=== PATIENT | female | born 1935 | race Caucasian/White ===

== ENCOUNTER → 2018-04-23 14:41 | Outpatient (CLI) | payer MEDICARE, OTHER, SELFPAY ==
--- NOTE | 2018-04-23 14:47 | CI_ITS ---
Cerebrovascular Exam Indications: 785.9 Bruit. 435.9 Unspecified transient cerebral ischemia. 433.10 Occlusion/stenosis of carotid artery without cerebral infarction. IMPRESSIONS 1. The bilateral vertebral arteries are patent with normal antegrade flow. 2. Study suggests 20-49% stenosis involving the right internal carotid artery. 3. Study suggests 70-99%(UPPER END OF SCALE)stenosis involving the left internal carotid artery. Labs, prior tests, procedures, and surgery: Right endarterectomy. Labs, prior tests, procedures, and surgery: Right endarterectomy. Carotid duplex study. Complete study and Doppler flow study including spectral analysis, color and kerr scale imaging. Height: Height: 167.6cm. Height: 66in. Weight: Weight: 75.8kg. Weight: 166.7lb. Body mass index: BMI: 27kg/m^2. Body surface area: BSA: 1.89m^2. Location: Vascular laboratory. Patient status: Outpatient. CRITICAL FINDINGS - Reported to: DORYS SCHROEDER - Read back and verified. - 04/23/18 - 1535 - YES Tables: Arterial flow: + +--------+--------+ Location V sys V ed + +--------+--------+ Right CCA - proximal 77cm/s 14.9cm/s + +--------+--------+ Right CCA - distal 91.9cm/s 17.3cm/s + +--------+--------+ Right ECA 134cm/s -------- + +--------+--------+ Right ICA - proximal -66cm/s 16.5cm/s + +--------+--------+ Right ICA - mid 80.9cm/s 16.5cm/s + +--------+--------+ Right ICA - distal 125cm/s 26.7cm/s + +--------+--------+ Right vertebral 55cm/s -------- + +--------+--------+ Left CCA - proximal 94.3cm/s 14.1cm/s + +--------+--------+ Left CCA - distal 78.6cm/s 11.8cm/s + +--------+--------+ Left ECA 138cm/s -------- + +--------+--------+ Left ICA - proximal 198cm/s 47.7cm/s + +--------+--------+ Left ICA - mid 130cm/s 32.3cm/s + +--------+--------+ Left ICA - distal 146cm/s 33.7cm/s + +--------+--------+ Left vertebral 85.6cm/s -------- + +--------+--------+ Velocity ratios: + + + + + + Right, V sys Right, V ed Left, V sys Left, V ed + + + + + + Max ICA/dist CCA 1.36 1.54 2.52 4.04 + + + + + + (Report amended ) Electronically signed by: Jenaro Hyatt [id number]
== END ==
PROVIDERS: Visit Provider Nurse Practitioner Family
DX: I65.23 Occlusion and stenosis of bilateral carotid arteries (principal)
CPT/HCPCS: 93880

== ENCOUNTER 2018-10-15 12:34 | Observation (INO) ==
[2018-10-15 15:13] LABS: Basophils % 0.5 % (0.1-2.0); Eosinophils # 0.3 K/mm3 (0.0-0.4); Eosinophils % 3.4 % (0.1-12.0); Hematocrit 42.7 % (37.0-47.0); Hemoglobin 14.5 g/dL (12.2-16.2); Lymphocytes # 1.8 K/mm3 (0.7-4.5); Lymphocytes % 22.3 % (10-50); Mean Corpuscular HGB Conc 34.1 g/dL (31.8-35.4); Mean Corpuscular Hemoglobin 28.9 pg (27.0-31.2); Mean Corpuscular Volume 84.9 fl (81-99); Mean Platelet Volume 7.2 fl (7.4-10.4); Monocytes # 0.5 K/mm3 (0.1-1.0); Monocytes % 6.1 % (1.7-9.3); Neutrophils # 5.5 K/mm3 (1.8-7.8); Neutrophils % 67.6 % (37.0-80.0); Platelet Count 410 K/mm3 (142-424); Red Blood Count 5.03 M/mm3 (4.20-5.40); Red Cell Distribution Width 12.2 % (11.5-17.5); White Blood Count 8.2 K/mm3 (4.8-10.8)
[2018-10-15 15:32] LABS: Alanine Aminotransferase 19 U/L (12-78); Albumin Level 3.6 gm/dL (3.4-5.0); Albumin/Globulin Ratio 0.7 (1.1-1.8); Alkaline Phosphatase 71 U/L (46-116); Anion Gap 10.3 mEq/L (5-15); Bilirubin,Total 0.4 mg/dL (0.2-1.0); Blood Urea Nitrogen 24 mg/dL (7-18); Calcium 9.6 mg/dL (8.5-10.1); Carbon Dioxide 33 mmol/L (21.0-32.0); Chloride 105 mmol/L (98-107); Globulin 4.9 gm/dl (1.3-3.2); Glucose 108 mg/dL (74-106); Sodium 143 mmol/L (136-145); Total Protein,Serum 8.5 gm/dL (6.4-8.2)
[2018-10-15 15:35] LABS: Aspartate Amino Transferase 20 U/L (15-37); Potassium 5.3 mmoL/L (3.5-5.1)
--- NOTE | 2018-10-15 20:38 | History & Physical Report ---
*Admission Date: 10/15/18 *Chief complaint: syncope *History of present illness: this wf presented with progressive over the last few weeks syncopal episodes and feeling unstable - pt reports dec hr and no chest pain pt admitted for eval and treatment [facility] History I have reviewed the patient's past medical history: Yes Medical History: Reports:: Anxiety, Atrial Fibrillation, Coronary Artery Disease, Diabetes Mellitus Type 2, Hyperlipidemia, Hypertension Denies:: Cancer, Diabetes Mellitus Type 1, MRSA *Have you ever received a pneumonia vaccine?: Yes *Have you received a flu vaccine this season?: Yes Other Surgeries: Yes: Cardiac Catheterization (08/31/2017 2 stents [facility]), Cholecystectomy, Hernia Repair Amputation: No Fractures: No - *Social History Educational Level: Attended High School Smoking Status: Former smoker Tobacco Type: cigarettes # Packs/Day (cigarettes): 1 Alcohol Intake: current Alcohol Intake Frequency:: holidays/special occasions only Substance Use Type: denies use *Occupational Status:: retired, disabled Housing: house Household Members: spouse *Travel in the last 8 weeks: Inside the [place] - Psychiatric History Expresses thoughts of harming self/others: None Suicide Plan Description: No Plan Pschychiatric History:: Reports:: Anxiety Family Hx:: Diabetes, Coronary Artery Disease Review of Systems - Review of Systems Review of systems:: pertinent systems reviewed and negative unless documented below - Constitutional Reports weakness, Denies headache(s) - Eyes Denies change in vision - ENT Denies sore throat - *Cardiovascular Reports lightheadedness, Reports fainting, Denies chest pain at rest - *Respiratory Denies cough - *Gastrointestinal Denies abdominal pain - *Genitourinary Denies blood in urine - *Musculoskeletal Denies joint pain - Integumentary/Breasts Denies rash - *Neurologic Denies abnormal speech, Denies confusion, Denies seizure-like activity, Denies headache(s) - Psychiatric Denies anxiety Meds Home Medications Medication Instructions Recorded Confirmed Type aspirin 81 mg tablet,delayed 81 mg PO .QDAY tab 05/28/17 07/30/18 History release ferrous sulfate 325 mg (65 mg 325 mg PO DAILY tab 08/30/17 07/30/18 History iron) tablet acetaminophen 300 mg-codeine 30 mg 1 tab PO Q4H PRN tab 07/30/18 07/30/18 History tablet alprazolam 0.25 mg tablet 0.25 mg PO BID PRN 07/30/18 07/30/18 History carbidopa 25 mg-levodopa 100 mg 1 tab PO DAILY tab 07/30/18 07/30/18 History tablet celecoxib 100 mg capsule 100 mg PO BID 07/30/18 07/30/18 History duloxetine 20 mg capsule,delayed 20 mg PO DAILY cap 07/30/18 07/30/18 History release furosemide 20 mg tablet 20 mg PO DAILY 07/30/18 07/30/18 History omeprazole 40 mg capsule,delayed 40 mg PO DAILY 07/30/18 07/30/18 History release Gabapentin [Neurontin 800mg Tab] 800 mg PO HS 10/15/18 History Losartan Potassium 50 mg PO DAILY 10/15/18 History Ropinirole HCl [Requip] 4 mg PO TID 10/15/18 History clopidogrel 75 mg tablet 75 mg PO DAILY 10/15/18 10/15/18 History sitagliptin 100 mg tablet 100 mg PO DAILY 10/15/18 10/15/18 History Allergies Allergy/AdvReac Type Severity Reaction Status Date / Time No Known Allergies Allergy Verified 10/15/18 14:22 Exam Vital signs and Labs for Last 24 Hours: Temp Pulse Resp BP Pulse Ox 98.5 F 54 L 16 157/46 H 96 10/15/18 16:00 10/15/18 16:00 10/15/18 16:00 10/15/18 16:00 10/15/18 16:00 Laboratory Results - last 24 hr 10/15/18 15:06: WBC 8.2, RBC 5.03, Hgb 14.5, Hct 42.7, MCV 84.9, MCH 28.9, MCHC 34.1, RDW 12.2, Plt Count 410, MPV 7.2 L, Neut % (Auto) 67.6, Lymph % (Auto) 22.3, [place] % (Auto) 6.1, Eos % (Auto) 3.4, Baso % (Auto) 0.5, Neut # (Auto) 5.5, Lymph # (Auto) 1.8, [place] # (Auto) 0.5, Eos # (Auto) 0.3, Baso # (Auto) 0.0 10/15/18 15:06: Sodium 143, Potassium 5.3 H, Chloride 105, Carbon Dioxide 33 H, Anion Gap 10.3, BUN 24 H, Creatinine 1.30 H, Estimated Creat Clear 39, Estimated GFR 39 L, Est GFR ( Amer) 48 L, Glucose 108 H, Calcium 9.6, Total Bilirubin 0.4, AST 20, ALT 19, Alkaline Phosphatase 71, Troponin I < 0.02, Total Protein 8.5 H, Albumin 3.6, Globulin 4.9 H, Albumin/Globulin Ratio 0.7 L 10/15/18 19:05: Troponin I < 0.02 I & O for Last 24 hours: Intake & Output 10/13/18 10/14/18 10/15/18 10/16/18 11:59 11:59 11:59 11:59 Intake Total 120 / 120 Balance 120 / 120 Weight 159 lb 8 oz - Constitutional no acute distress - *Routine HEENT Exam Head: Present: normocephalic Eye: Present: EOMI, PERRL ENT: Present: mucous membranes dry - *Routine Neck Exam Absent: JVD, carotid bruit - *Routine Respiratory Exam Present: CTA bilaterally - *Routine Cardiovascular Exam Present: RRR, murmur, S4 - *Routine Abdominal Exam Present: soft - *Routine Extremities Exam Absent: calf tenderness - *Routine Skin Exam Present: intact - *Routine Neurological Exam Present: alert, oriented X3, CN II-XII intact. Absent: sensory deficit, motor deficit, nystagmus - Routine Psychiatric Exam Present: normal affect Assessment and Plan (1) Renal insufficiency Current visit: Yes Status: Acute Category: Medical Code(s): N28.9 - Disorder of kidney and ureter, unspecified (2) Pre-syncope Current visit: No Status: Acute Category: Medical Code(s): R55 - Syncope and collapse (3) Symptomatic bradycardia Current visit: No Status: Acute Category: Medical Code(s): R00.1 - Bradycardia, unspecified (4) Hyperkalemia Current visit: Yes Status: Acute Category: Medical Code(s): E87.5 - H yperkalemia
--- NOTE | 2018-10-16 07:20 | Pharmacy Consult Notes ---
[facility] Pharmacy VTE Monitoring - Patient Demographics Admission date: 10/15/18 Report Date: 10/16/18 Time: 07:20 Allergies/Adverse Reactions: Patient Allergies No Known Allergies Allergy (Verified 10/15/18 14:22) Height: 1.68 m Weight: 69.626 kg - VTE Risk Labs: VTE Related Lab Results Hgb 14.5 g/dL (12.2-16.2) 10/15/18 15:06 Hct 42.7 % (37.0-47.0) 10/15/18 15:06 Plt Count 410 K/mm3 (142-424) 10/15/18 15:06 BUN 24 mg/dL (7-18) H 10/15/18 15:06 Creatinine 1.30 mg/dL (0.55-1.02) H 10/15/18 15:06 Estimated Creat Clear 39 mL/min (50-200) 10/15/18 15:06 Was VTE Risk Assessment Performed: Yes VTE Score: 2 VTE Risk Level: Very Low Risk - Prophylaxis VTE Prophylaxis Ordered?: Yes Types of VTE Prophylaxis: TEDS Knee High Location of Applied Device: Bilateral Lower Extremeties - VTE Diagnosis Confirmed Treatment or plan recommended: Continue Current Treatment
[2018-10-16 07:37] LABS: Basophils % 0.5 % (0.1-2.0); Eosinophils # 0.2 K/mm3 (0.0-0.4); Eosinophils % 2.3 % (0.1-12.0); Hematocrit 41.1 % (37.0-47.0); Lymphocytes # 1.3 K/mm3 (0.7-4.5); Lymphocytes % 17.1 % (10-50); Mean Corpuscular HGB Conc 31.3 g/dL (31.8-35.4); Mean Corpuscular Hemoglobin 28.1 pg (27.0-31.2); Mean Platelet Volume 7.7 fl (7.4-10.4); Monocytes # 0.4 K/mm3 (0.1-1.0); Monocytes % 4.6 % (1.7-9.3); Neutrophils # 5.9 K/mm3 (1.8-7.8); Neutrophils % 75.6 % (37.0-80.0); Platelet Count 414 K/mm3 (142-424); Red Blood Count 4.57 M/mm3 (4.20-5.40); Red Cell Distribution Width 12.7 % (11.5-17.5); White Blood Count 7.8 K/mm3 (4.8-10.8)
[2018-10-16 07:43] LABS: Albumin Level 3.1 gm/dL (3.4-5.0); Bilirubin,Direct 0.1 mg/dL (0.0-0.2); Bilirubin,Indirect 0.4 mg/dL (0.0-0.9); Bilirubin,Total 0.5 mg/dL (0.2-1.0); Total Protein,Serum 7.2 gm/dL (6.4-8.2)
[2018-10-16 07:55] LABS: Hemoglobin 12.9 g/dL (12.2-16.2)
[2018-10-16 07:56] LABS: Anion Gap 10.3 mEq/L (5-15); Chol/HDL Ratio 7.7 (1-3.5); Free T4 (Free Thyroxine) 1.09 ng/dl (0.76-1.46); Potassium 4.3 mmoL/L (3.5-5.1); Thyroid Stimulating Hormone 1.94 uIU/ml (0.358-3.740)
--- NOTE | 2018-10-16 10:40 | Progress Note ---
Subjective Date: 10/16/18 Time: 10:30 Principal diagnosis: symptomatic bradycardia Interval history: This is an 82-year-old white female who was seen in the outpatient clinic yesterday. The patient was complaining of dizziness and near syncopal episodes. She states that she was very unsteady on her feet and her significant other was having to guide her majority of the time when she is walking. She states that she gets significantly dizzy and then falls over but does not pass out but she feels as if she is going to pass out. She states that her most recent episode was yesterday morning prior to her clinic appointment. She also reports having significant pain in her hips and legs. She states that this is severe and she does use pain medication and gabapentin for this as needed. She denies any chest pain or pressure. She denies any shortness of breath or edema. She denies any fever, chills, nausea, vomiting, diarrhea, PND or orthopnea. She states that she is still been having some intermittent dizziness but today her dizziness is not as bad as it was yesterday. The patient was found to have bradycardia, first-degree AV block and a left bundle branch block on her EKG yesterday in the cardiac clinic. She was referred for admission to the hospital to undergo permanent pacemaker placement secondary to her symptomatic bradycardia as well as a first-degree AV block and left bundle branch block. She also had an echocardiogram completed to see if she was a candidate for a biventricular pacemaker or a plane pacemaker. Her ejection fraction on her echocardiogram is 40%. The patient would benefit from a biventricular pacemaker because of her reduced ejection fraction and we do anticipate that the patient is going to A pace and V pace. Exam Vital signs and Labs for Last 24 Hours: Temp Pulse Resp BP Pulse Ox 97.5 F L 64 19 166/64 H 97 10/16/18 08:00 10/16/18 08:00 10/16/18 08:00 10/16/18 08:00 10/16/18 08:00 Laboratory Results - last 24 hr 10/15/18 15:06: WBC 8.2, RBC 5.03, Hgb 14.5, Hct 42.7, MCV 84.9, MCH 28.9, MCHC 34.1, RDW 12.2, Plt Count 410, MPV 7.2 L, Neut % (Auto) 67.6, Lymph % (Auto) 22.3, [place] % (Auto) 6.1, Eos % (Auto) 3.4, Baso % (Auto) 0.5, Neut # (Auto) 5.5, Lymph # (Auto) 1.8, [place] # (Auto) 0.5, Eos # (Auto) 0.3, Baso # (Auto) 0.0 10/15/18 15:06: Sodium 143, Potassium 5.3 H, Chloride 105, Carbon Dioxide 33 H, Anion Gap 10.3, BUN 24 H, Creatinine 1.30 H, Estimated Creat Clear 39, Estimated GFR 39 L, Est GFR ( Amer) 48 L, Glucose 108 H, Calcium 9.6, Total Bilirubin 0.4, AST 20, ALT 19, Alkaline Phosphatase 71, Troponin I < 0.02, Total Protein 8.5 H, Albumin 3.6, Globulin 4.9 H, Albumin/Globulin Ratio 0.7 L 10/15/18 19:05: Troponin I < 0.02 10/15/18 20:40: POC Glucose 112 H 10/15/18 21:50: Troponin I 0.03 10/16/18 06:49: WBC 7.8, RBC 4.57, Hgb 12.9 D, Hct 41.1, MCV 90.0, MCH 28.1, MCHC 31.3 L, RDW 12.7, Plt Count 414, MPV 7.7, Neut % (Auto) 75.6, Lymph % (Auto) 17.1, [place] % (Auto) 4.6, Eos % (Auto) 2.3, Baso % (Auto) 0.5, Neut # (Auto) 5.9, Lymph # (Auto) 1.3, [place] # (Auto) 0.4, Eos # (Auto) 0.2, Baso # (Auto) 0.0 10/16/18 06:49: Sodium 142, Potassium 4.3, Chloride 106, Carbon Dioxide 30, Anion Gap 10.3, BUN 28 H, Creatinine 1.14 H, Estimated Creat Clear 43, Estimated GFR 46 L, Est GFR ( Amer) 55 L, Glucose 130 H D, Calcium 9.0, Magnesium 2.0, Triglycerides 208 H, Cholesterol 291 H, LDL Cholesterol 211 H, VLDL Cholesterol 42 H, HDL Cholesterol 38, Cholesterol/HDL Ratio 7.7 H, TSH 1.94, Free T4 1.09 10/16/18 06:49: ESR 50 H 10/16/18 06:49: Total Bilirubin 0.5, Direct Bilirubin 0.1, Indirect Bilirubin 0.4, AST 11 L D, ALT 19, Alkaline Phosphatase 60, Total Protein 7.2, Albumin 3.1 L D I & O for Last 24 hours: Intake & Output 10/13/18 10/14/18 10/15/18 10/16/18 11:59 11:59 11:59 11:59 Intake Total 643 / 643 Balance 643 / 643 Weight 153 lb 8 oz Narrative: Her telemetry strip shows sinus rhythm with a rate of 78. - *Routine HEENT Exam Head: Present: normocephalic, atraumatic Eye: Present: EOMI, PERRL ENT: Present: mucous membranes moist - *Routine Neck Exam Present: supple, full ROM, carotid bruit. Absent: JVD, lymphadenopathy - *Routine Respiratory Exam Present: CTA bilaterally - *Routine Cardiovascular Exam Present: RRR, Normal S1, Normal S2. Absent: murmur, gallop - *Routine Abdominal Exam Present: soft, normoactive bowel sounds. Absent: tenderness, distended - *Routine Extremities Exam Present: full ROM, pulses intact, normal capillary refill. Absent: cyanosis, clubbing, edema - *Routine Skin Exam Present: intact, warm. Absent: erythema, rash - *Routine Neurological Exam Present: alert, oriented X3, CN II-XII intact. Absent: sensory deficit, motor deficit - Detailed Eye Exam Eyelids: Left normal inspection Progress Note: A&P (1) Symptomatic bradycardia Status: Acute Current Visit: No (2) Pre-syncope Status: Acute Current Visit: No (3) Renal insufficiency Status: Acute Current Visit: Yes (4) Hyperkalemia Status: Acute Current Visit: Yes (5) First degree AV block Status: Acute Current Visit: Yes (6) Sinus bradycardia Status: Acute Current Visit: No (7) Hypertensive heart disease Status: Chronic Current Visit: No (8) Carotid artery stenosis Status: Chronic Current Visit: No (9) Left bundle branch block Status: Chronic Current Visit: No (10) Hyperlipemia Status: Chronic Current Visit: No (11) Coronary arteriosclerosis Status: Chronic Current Visit: No (12) Atrial fibrillation Status: Chronic Current Visit: No (13) Type 2 diabetes mellitus without complication Status: Chronic Current Visit: No (14) Restless legs Status: Chronic Current Visit: No Assessment and Plan for All Diagnoses:: Plan: 1. The patient was admitted for symptomatic bradycardia, presyncope, sinus bradycardia, first-degree AV block and left bundle branch block. The patient was bradycardic in the cardiac clinic yesterday without having a beta-amy on board. At her age her heart rate in the 50s is most likely causing her presyncopal episodes and symptomatic bradycardia. The patient will need to have a permanent pacemaker placed secondary to her symptomatic bradycardia as well as first-degree AV block and left bundle branch block. 2. Her echocardiogram showed an ejection fraction of 40% with moderate mitral regurgitation. She also has a wide QRS greater than 120 msecs. Because the patient does have a reduced ejection fraction at 40% and a wide QRS complex, she would benefit from a biventricular pacemaker. I anticipate that the patient will V-pace and require a biventricular pacemaker because of her advanced AVN dysfunction and infra-hisian disease. 3. The patient has been educated on the risks and benefits of proceeding with biventricular permanent pacemaker placement. The patient has verbalized understanding and is agreeable in proceeding with the procedure. 4. The patient will be n.p.o. in preparation for permanent pacemaker placement. This is scheduled for 1230. 5. The patient does have a history of coronary disease. She denies any chest pain or pressure. No plans for ischemic evaluation at this time. Her coronary artery disease is likely stable. 6. Her blood pressure is a little elevated at this morning. We will continue to follow. 7. Her LDL goal is less than 55. 8. The patient does have carotid artery stenosis. This is followed in outpatient clinic. 9. She does have atrial fibrillation. This is paroxysmal. She has remained in sinus for several years and no anticoagulation is indicated at this time. 10. She is diabetic. She does need aggressive control of her diabetes. 11. Further recommendations will be made pending the patient's response to treatment following her biventricular pacemaker placement later today. Thank you for the opportunity to help participate in the care of this patient.
--- NOTE | 2018-10-17 06:49 | Progress Note ---
Internal Medicine - PN: Subj *Date: 10/16/18 *Time: 08:30 Interval history: doing ok - to have pacemaker today - has hx of chronic leg pain at night Exam Vital signs and Labs for Last 24 Hours: Temp Pulse Resp BP Pulse Ox 99.1 F 65 18 119/49 L 95 10/17/18 04:00 10/17/18 04:00 10/17/18 04:00 10/17/18 04:00 10/17/18 04:00 Laboratory Results - last 24 hr 10/16/18 06:49: WBC 7.8, RBC 4.57, Hgb 12.9 D, Hct 41.1, MCV 90.0, MCH 28.1, MCHC 31.3 L, RDW 12.7, Plt Count 414, MPV 7.7, Neut % (Auto) 75.6, Lymph % (Auto) 17.1, [place] % (Auto) 4.6, Eos % (Auto) 2.3, Baso % (Auto) 0.5, Neut # (Auto) 5.9, Lymph # (Auto) 1.3, [place] # (Auto) 0.4, Eos # (Auto) 0.2, Baso # (Auto) 0.0 10/16/18 06:49: Sodium 142, Potassium 4.3, Chloride 106, Carbon Dioxide 30, Anion Gap 10.3, BUN 28 H, Creatinine 1.14 H, Estimated Creat Clear 43, Estimated GFR 46 L, Est GFR ( Amer) 55 L, Glucose 130 H D, Calcium 9.0, Magnesium 2.0, Triglycerides 208 H, Cholesterol 291 H, LDL Cholesterol 211 H, VLDL Cholesterol 42 H, HDL Cholesterol 38, Cholesterol/HDL Ratio 7.7 H, TSH 1.94, Free T4 1.09 10/16/18 06:49: ESR 50 H 10/16/18 06:49: Total Bilirubin 0.5, Direct Bilirubin 0.1, Indirect Bilirubin 0.4, AST 11 L D, ALT 19, Alkaline Phosphatase 60, Total Protein 7.2, Albumin 3.1 L D I & O for Last 24 hours: Intake & Output 10/14/18 10/15/18 10/16/18 10/17/18 11:59 11:59 11:59 11:59 Intake Total 643 / 643 566 / 566 Output Total 150 / 150 Balance 643 / 643 416 / 416 Weight 153 lb 8 oz 154 lb - Constitutional no acute distress - *Routine HEENT Exam Head: Present: normocephalic Eye: Present: EOMI, PERRL ENT: Present: mucous membranes dry - *Routine Neck Exam Present: supple - *Routine Respiratory Exam Present: CTA bilaterally - *Routine Cardiovascular Exam Present: RRR - *Routine Extremities Exam Present: full ROM - *Routine Skin Exam Present: intact - *Routine Neurological Exam Present: alert, CN II-XII intact - Routine Psychiatric Exam Present: normal affect Assessment and Plan (1) Symptomatic bradycardia Current visit: No Status: Acute Category: Medical Code(s): R00.1 - Bradycardia, unspecified (2) Pre-syncope Current visit: No Status: Acute Category: Medical Code(s): R55 - Syncope and collapse (3) Renal insufficiency Current visit: Yes Status: Acute Category: Medical Code(s): N28.9 - Disorder of kidney and ureter, unspecified (4) Hyperkalemia Current visit: Yes Status: Acute Category: Medical Code(s): E87.5 - Hyperkalemia (5) First degree AV block Current visit: Yes Status: Acute Category: Medical Code(s): I44.0 - Atrioventricular block, first degree (6) Sinus bradycardia Current visit: No Status: Acute Category: Medical Code(s): R00.1 - Bradycardia, unspecified (7) Hypertensive heart disease Current visit: No Status: Chronic Qualifiers: Heart failure presence: without heart failure Qualified Code(s): I11.9 - Hypertensive heart disease without heart failure Category: Medical Code(s): I11.9 - Hypertensive heart disease without heart failure (8) Carotid artery stenosis Current visit: No Status: Chronic Qualifiers: Laterality: bilateral Qualified Code(s): I65.23 - Occlusion and stenosis of bilateral carotid arteries Category: Medical Code(s): I65.29 - Occlusion and stenosis of unspecified carotid artery (9) Left bundle branch block Current visit: No Status: Chronic Category: Medical Code(s): I44.7 - Left bundle-branch block, unspecified (10) Hyperlipemia Current visit: No Status: Chronic Qualifiers: Hyperlipidemia type: mixed hyperlipidemia Qualified Code(s): E78.2 - Mixed hyperlipidemia Category: Medical Code(s): E78.5 - Hyperlipidemia, unspecified (11) Coronary arteriosclerosis Current visit: No Status: Chronic Category: Medical Code(s): I25.10 - Atherosclerotic heart disease of [place] coronary artery without angina pectoris (12) Atrial fibrillation Current visit: No Status: Chronic Qualifiers: Atrial fibrillation type: paroxysmal Qualified Code(s): I48.0 - Paroxysmal atrial fibrillation Category: Medical Code(s): I48.91 - Unspecified atrial fibrillation (13) Type 2 diabetes mellitus without complication Current visit: No Status: Chronic Qualifiers: Diabetes mellitus residential insulin use: without residential use Qualified Code(s): E11.9 - Type 2 diabetes mellitus without complications Category: Medical Code(s): E11.9 - Type 2 diabetes mellitus without complications (14) Restless legs Current visit: No Status: Chronic Category: Medical Code(s): G25.81 - Res tless legs syndrome
--- NOTE | 2018-10-17 10:04 | Progress Note ---
Subjective Date: 10/17/18 Time: 09:45 Principal diagnosis: symptomatic bradycardia Interval history: This is an 82-year-old white female who was seen in the outpatient cardiology clinic 2 days ago and admitted to the hospital for symptomatic bradycardia after experiencing dizziness and near syncopal episodes. The patient was very unsteady on her feet and have to be guided to the ground by her significant other. She never lost consciousness but was having some major dizzy episodes where she felt as if she were going to pass out. The patient did have some sinus bradycardia, first degree AV block and left bundle branch block on her EKG in the cardiology clinic. The patient was admitted for symptomatic bradycardia. Her echocardiogram did show an ejection fraction of 40%. She underwent biventricular pacemaker placement yesterday as she is expected to v-pace given her high degree of AV node dysfunction and infra-hisian disease. This morning the patient complains of a little bit of soreness at the pacemaker site but she states overall it is feeling well. She has no signs and symptoms of infection at the pacemaker site. She does have a little purple bruising at the pacemaker site which is expected. She denies any chest pain or pressure. No shortness of breath or edema. No fever chills nausea vomiting diarrhea PND or orthopnea. Exam Vital signs and Labs for Last 24 Hours: Temp Pulse Resp BP Pulse Ox 98.7 F 70 19 135/42 L 90 L 10/17/18 07:57 10/17/18 08:00 10/17/18 07:57 10/17/18 07:57 10/17/18 07:57 I & O for Last 24 hours: Intake & Output 10/14/18 10/15/18 10/16/18 10/17/18 23:59 23:59 23:59 23:59 Intake Total 120 / 120 523 / 523 1046 / 1046 Output Total 150 / 150 Balance 120 / 120 523 / 523 896 / 896 Weight 159 lb 8 oz 153 lb 8 oz 154 lb Narrative: Her telemetry strip is sinus rhythm with a rate of 73. - *Routine HEENT Exam Head: Present: normocephalic, atraumatic Eye: Present: EOMI, PERRL ENT: Present: mucous membranes moist - *Routine Neck Exam Present: supple, full ROM, normal carotid upstroke. Absent: JVD, carotid bruit, lymphadenopathy - *Routine Respiratory Exam Present: CTA bilaterally - *Routine Cardiovascular Exam Present: RRR, Normal S1, Normal S2. Absent: murmur - *Routine Abdominal Exam Present: soft, normoactive bowel sounds. Absent: tenderness, distended - *Routine Extremities Exam Present: full ROM, pulses intact, normal capillary refill. Absent: cyanosis, clubbing, edema - *Routine Skin Exam Present: intact, warm. Absent: erythema, rash - *Routine Neurological Exam Present: alert, oriented X3, CN II-XII intact. Absent: sensory deficit, motor deficit - Detailed Eye Exam Eyelids: Left normal inspection Progress Note: A&P (1) Symptomatic bradycardia Status: Acute Current Visit: No (2) Pre-syncope Status: Acute Current Visit: No (3) First degree AV block Status: Acute Current Visit: Yes (4) Sinus bradycardia Status: Acute Current Visit: No (5) Hypertensive heart disease Status: Chronic Current Visit: No (6) Carotid artery stenosis Status: Chronic Current Visit: No (7) Left bundle branch block Status: Chronic Current Visit: No (8) Hyperlipemia Status: Chronic Current Visit: No (9) Coronary arteriosclerosis Status: Chronic Current Visit: No (10) Atrial fibrillation Status: Chronic Current Visit: No (11) Type 2 diabetes mellitus without complication Status: Chronic Current Visit: No (12) Restless legs Status: Chronic Current Visit: No (13) Renal insufficiency Status: Acute Current Visit: Yes (14) Status post biventricular pacemaker Status: Acute Current Visit: Yes Assessment and Plan for All Diagnoses:: Plan: 1. The patient was admitted for symptomatic bradycardia, presyncope, sinus bradycardia, first-degree AV block and left bundle branch block. Due to the symptomatic bradycardia permanent pacemaker placement was recommended. 2. Her echocardiogram showed an ejection fraction of 40% with moderate mitral regurgitation. Given her wide QRS greater than 120 msecs and LBBB, in the setting of cardiomyopathy a biventricular pacemaker was placed. It is expected that the patient will V-pace and requiring a biventricular pacemaker because of her advanced AVN dysfunction and infra-hisian disease. 3. The patient does have a history of coronary disease. She denies any chest pain or pressure. Her coronary artery disease is likely stable. 4. Her blood pressure is well controlled. 5. Her LDL goal is less than 55. LDL is 211. pt is intolerant to statins. 6. The patient does have carotid artery stenosis. This is followed in outpatient clinic. 7. She does have paroxysmal atrial fibrillation. She has remained in sinus for several years and no anticoagulation is indicated at this time. Will follow afib on checo. 8. She is diabetic. She does need aggressive control of her diabetes. 9. Pt does have chronic hip and leg pain. she states this is well controlled this morning. 10. No further recommendations at this time from a cardiac standpoint. She is stable for discharge home from a cardiac standpoint. F/U next week for wound check. Thank you for the opportunity to help participate in the care of this patient.
--- NOTE | 2018-10-17 11:23 | Progress Note ---
[facility] Anesthesia Checklist - Structural Data Admitted From: Inpatient Planned Operative Procedure/s: bivent pacer Consent for Planned Operative Procedure(s) Verified: Yes - Airway Assessment C-Spine Mobility Assessed: Yes TMJ Mobility Assessed: Yes Dentition: Dentures-good fit - Neurological Assessment Level of Consciousness: Awake, Alert, Appropriate - Anesthesia Plan Anesthesia Risk discussed: Yes Anesthesia Plan: Verified ASA Class: III Anesthesia Type: MAC [facility] History I have reviewed the patient's past medical history: Yes Medical History: Reports:: Anxiety, Atrial Fibrillation, Coronary Artery Disease, Diabetes Mellitus Type 2, Hyperlipidemia, Hypertension Denies:: Cancer, Diabetes Mellitus Type 1, MRSA *Have you ever received a pneumonia vaccine?: Yes *Have you received a flu vaccine this season?: Yes Other Surgeries: Yes: Cardiac Catheterization (08/31/[address] [place] [address]), Cholecystectomy, Hernia Repair Amputation: No Fractures: No - *Social History Educational Level: Attended High School Smoking Status: Former smoker Tobacco Type: cigarettes # Packs/Day (cigarettes): 1 Alcohol Intake: current Alcohol Intake Frequency:: holidays/special occasions only Substance Use Type: denies use *Occupational Status:: retired, disabled Housing: house Household Members: spouse *Travel in the last 8 weeks: Inside the [place] - Psychiatric History Expresses thoughts of harming self/others: None Suicide Plan Description: No Plan Pschychiatric History:: Reports:: Anxiety Family Hx:: Diabetes, Coronary Artery Disease
--- NOTE | 2018-10-17 12:35 | Discharge Summary ---
General - General Admission date:: 10/15/18 Discharge date: 10/17/18 HPI HPI: this wf presented with progressive over the last few weeks syncopal episodes and feeling unstable - pt reports dec hr and no chest pain pt admitted for eval and treatment Hospital Course Hospital Course: 10/16/2018 CXR: IMPRESSION: Interval insertion of biventricular pacemaker. No evidence of pneumothorax. Left-sided skinfold artifact versus consolidation in the left lower lobe. Recommend upright PA and lateral chest when patient tolerated Dictated By: Jenaro Hyatt MD 82 YOF admitted 10/15/2018 with progressive syncopal episodes and feeling unstable over the last few weeks. She reports decreased hr and no chest pain. She did have some sinus bradycardia, first degree AV block and left bundle branch block on her EKG in the cardiology clinic. The patient was admitted for symptomatic bradycardia. Her echocardiogram did show an ejection fraction of 40%. She underwent biventricular pacemaker placement 10/16/2018 as she is expected to v- pace given her high degree of AV node dysfunction and infra-hisian disease. This morning she is sitting up in chair resp easy/even, does reports some site pain, but "it is OK", drsg to L upper chest C,D,I, denies CP or SOA. She is agreeable to D/C today. No Sling/Swath needed per Cards To be D/C to Home today F/U Dr. Okeefe [address] Koroma 1 week Objective Vital signs: Temp Pulse Resp BP Pulse Ox 98.7 F 70 19 135/42 L 90 L 10/17/18 07:57 10/17/18 08:00 10/17/18 07:57 10/17/18 07:57 10/17/18 08:00 no acute distress - *Routine HEENT Exam Head: Present: normocephalic Eye: Present: EOMI, PERRL, normal accommodation ENT: Present: mucous membranes moist - *Routine Neck Exam Present: supple, full ROM, trachea midline. Absent: JVD - Routine Chest/Breast/Axilla Exam Chest wall: Present: tenderness, pacemaker - *Routine Respiratory Exam Present: CTA bilaterally. Absent: accessory muscle use, respiratory distress - *Routine Cardiovascular Exam Present: RRR, Normal S1, Normal S2. Absent: JVD - *Routine Abdominal Exam Present: soft, normoactive bowel sounds. Absent: tenderness - *Routine Extremities Exam Present: full ROM. Absent: cyanosis, edema - Routine Back/Spine/Pelvis Exam Back/Spine: Present: full ROM. Absent: CVA tenderness - *Routine Skin Exam Present: intact, warm. Absent: cyanosis, jaundice - *Routine Neurological Exam Present: alert, oriented X3, CN II-XII intact, moving all extremities, normal speech. Absent: tremors - Routine Psychiatric Exam Present: normal affect, normal thought process Results - Additional Comments Rounded w/ Dr. Koroma, all orders per Dr. Koroma DS: Diagnosis - Discharge Diagnosis (1) Symptomatic bradycardia Status: Acute (2) Pre-syncope Status: Acute (3) First degree AV block Status: Acute (4) Sinus bradycardia Status: Acute (5) Hypertensive heart disease Status: Chronic (6) Carotid artery stenosis Status: Chronic (7) Left bundle branch block Status: Chronic (8) Hyperlipemia Status: Chronic (9) Coronary arteriosclerosis Status: Chronic (10) Atrial fibrillation Status: Chronic (11) Type 2 diabetes mellitus without complication Status: Chronic (12) Restless legs Status: Chronic (13) Renal insufficiency Status: Acute (14) Status post biventricular pacemaker Status: Acute Discharge Plan - Patient Discharge Instructions ACTIVITY: Continue current activity DIET: continue same diet Patient Instructions: DI for Syncope in Adults (Fainting), Pacemaker Insertion, DI for Surgical Site Infection, Low-Potassium Diet, Low-Sodium Diet - Follow up Plan Follow up with: Patrick Okeefe MD [Staff Physician] - 1 week Barney Koroma MD [Primary Care Provider] - 1 week Disposition: Home, Self-Correction Medications: Home Medications Medication Instructions Recorded Confirmed Type aspirin 81 mg tablet,delayed 81 mg PO DAILY tab 05/28/17 10/16/18 History release ferrous sulfate 325 mg (65 mg 325 mg PO DAILY tab 08/30/17 10/16/18 History iron) tablet alprazolam 0.25 mg tablet 0.25 mg PO BIDP PRN 07/30/18 10/16/18 History carbidopa 25 mg-levodopa 100 mg 1 tab PO DAILY tab 07/30/18 10/16/18 History tablet celecoxib 100 mg capsule 100 mg PO BID 07/30/18 10/16/18 History duloxetine 20 mg capsule,delayed 20 mg PO DAILY cap 07/30/18 10/16/18 History release furosemide 20 mg tablet 20 mg PO DAILY 07/30/18 10/16/18 History omeprazole 40 mg capsule,delayed 40 mg PO DAILY 07/30/18 10/16/18 History release Gabapentin [Neurontin 800mg Tab] 800 mg PO HS 10/15/18 10/16/18 History Losartan Potassium 50 mg PO DAILY 10/15/18 10/16/18 History Ropinirole HCl [Requip] 4 mg PO TID 10/15/18 10/16/18 History clopidogrel 75 mg tablet 75 mg PO DAILY 10/15/18 10/16/18 History sitagliptin 100 mg tablet 100 mg PO DAILY 10/15/18 10/16/18 History Prescriptions/Medication Reconciliation: Continued aspirin 81 mg tablet,delayed release 81 mg PO DAILY tab ferrous sulfate 325 mg (65 mg iron) tablet 325 mg PO DAILY tab carbidopa 25 mg-levodopa 100 mg tablet 1 tab PO DAILY tab celecoxib 100 mg capsule 100 mg PO BID duloxetine 20 mg capsule,delayed release 20 mg PO DAILY cap furosemide 20 mg tablet 20 mg PO DAILY omeprazole 40 mg capsule,delayed release 40 mg PO DAILY alprazolam 0.25 mg tablet 0.25 mg PO BIDP PRN PRN Reason: Anxiety clopidogrel 75 mg tablet 75 mg PO DAILY sitagliptin 100 mg tablet 100 mg PO DAILY Ropinirole HCl [Requip] 4 mg PO TID Gabapentin [Neurontin 800mg Tab] 800 mg PO HS Losartan Potassium 50 mg PO DAILY
--- NOTE | 2018-10-17 15:02 | Procedure Note ---
[facility] HYBRID POWERTRAIN DEVELOPMENT ENGINEER-D - HYBRID POWERTRAIN DEVELOPMENT ENGINEER-D Date of Procedure:: 10/16/18 Procedures:: 1. Pocket formation for biventricular pacemaker generator with cardiac resynchronization/defibrillator therapy. 2. Placement atrial sensing and pacing lead into the right atrial appendage. 3. Placement of ventricular sensing pacing and shocking lead in the right ventricular apex. 4. Placement of left ventricular sensing pacing lead into the coronary sinus. 5. Permanent cardiac resynchronization therapy with ICD implantation/bi ventricular pacemaker. Indication for test:: Systolic Congestive Heart Failure Ejection Fraction <35% Wide QRS >120m/s [place] Heart Association class 3 CHF Informed consent:: Obtained prior to procedure. Complications:: None EBL:: Less than 10 ml. Technique:: 1% lidocaine with epinephrine used to anesthetize the left anterior aspect of the chest. Scalpel was used to make the initial cutaneous incision while electrocautery was used to dissect down into the fascia. The fascia was lifted off the pectoralis muscle and digitally manipulated creating a pocket for the pacemaker. The patient was then placed in Trendelenburg position and subclavian vein was accessed via the Seldinger technique on 3 separate occasions. 3 wires were left into the subclavian vein. The right ventricular pacing shocking coil sheath was placed into the subclavian vein and under fluoroscopic guidance the right lingular sensing pacing shocking lead was placed into the right ventricular apex secured into place with the distal screw. After achieving excellent numbers the lead was then secured into placing using 3-0 silk. The lead was secured to the fascia also with heavy silk suture. Prior to the right ventricular lead being secured into place the sheath was peeled away from the subclavian vein. Under fluoroscopic guidance the coronary sinus was cannulated and confirmed with an injection of contrast. An 0.014 wire was then placed distally in the inferior posterior segment of the left ventricle via the coronary sinus and the left ventricular lead was advanced. After achieving excellent thresholds and interrogation numbers the sheath was then peeled away and the lead was then secured into place using silk suture. Following this, the left ventricular coil was secured in place using heavy silk and also secured to the fascia and additional 7 Faroese sheath was then placed over the existing wire and an atrial sensing placing coil was placed in the right atrial appendage after achieving excellent thresholds the sheath was peeled away and the lead was secured to the fascia using heavy silk. After achieving, hemostasis, Ancef was used to flush the pocket and the 3 leads were attached to the HYBRID POWERTRAIN DEVELOPMENT ENGINEER-D generator. The generator was then secured into place by heavy silk suture. Monocryl was used to close the subcutaneous layers while karlo were used to close the subcutaneous layers while karlo were used to close the cutaneous layer. Pressurized and the patient was transferred to the postop holding area in stable condition. Impression:: 1. Successful pocket formation for biventricular pacemaker generator with cardiac resynchronization/defibrillator therapy. 2. Successful placement of right atrial sensing and pacing lead into the right atrial appendage. 3. Successful placement of a right ventricular sensing, pacing, and shocking lead in the right ventricular apex. 4. Successful placement of left ventricular sensing pacing lead into the coronary sinus. 5. Successful permanent cardiac resynchronization plus AICD generator device. Interrogation:: INTERROGATION: Generator Model number: U228 Generator Serial number: [id number] Atrial lead model number: 7740 Atrial lead serial number: [id number] P-wave: 2.8mV Impedence: 636 ohms Threshold: 0.8V@0.5ms Left Ventricular lead model number: 4675 Left Ventricular lead serial number: [id number] R-wave: 14.6mV Impedence: 710ohms Threshold: 2.4V@1ms Right Ventricular lead model number: 7741 Right Ventricular lead serial number: [id number] R-wave: 17.2mV Impedence: 1250ohms Threshold: 0.5V@0.5ms Pacing Parameters: Mode: DDDR Base/Max Track: 60/120PPM No diaphragmatic stimulation at 10 volts. Plan:: 1.Post-op wound care.
--- NOTE | 2018-10-17 17:03 | Cardiology Report ---
PROCEDURE: 2-D M-mode and color Doppler study INDICATIONS FOR THE TEST: Chest pain COPD Heart Murmur Tobacco Smoking Palpitations Fatigue Syncope Edema Hypertension+Diabetes Mellitus+ Rheumatic Fever SOB LUNDBERG Obesity Hyperlipidemia+ Family History HD Additional History SYNCOPE,CABG,STENTS PATIENT INFORMATION HEIGHT: 66 WEIGHT:153 GENDER: Female B/P:160/80 2-D/M-MODE INTERPRETATION: 2-D MEASUREMENTS OBSERVED VALUES IN CMS Right Ventricular Dimension (RVDd) 2.3 Interventricular Septum (Thickness)(IVsd) 1.0 Left Ventricular Internal Dimensions(LVIDd) 6.4 Left Ventricular Posterior Wall (Thickness)(LVPWd) 1.0 Aortic Root 2.3 Aortic Cusp Separation 2.0 Left Atrial Dimensions (LAD) 4.4 2D 1. Left atrium is mildly enlarged, left ventricle is mildly dilated, there is mild concentric left ventricular hypertrophy, visually estimated ejection fraction 45%, there is marked hypokinesis involving the inferior basal wall. There is abnormal septal motion. 2. The right atrium and right ventricle are normal size and contractility. 3. The aortic valve is minimally thickened and fibrosed. 4. The mitral and tricuspid valves are minimally thickened. 5. The pulmonic valve is poorly visualized. 6. No significant pericardial effusion noted. DOPPLER INTERROGATION: Doppler interrogation of the aortic, mitral and tricuspid valve is presence of mild mitral and tricuspid regurgitation, tricuspid regurgitation jet velocity is inadequate for calculation of the right ventricular systolic pressure, grade 1 diastolic dysfunction seen with tissue Doppler evidence of raised left atrial pressure. CONCLUSION: 1. Mildly enlarged left atrium, mildly dilated left ventricle, there is mild concentric left ventricular hypertrophy, visually estimated ejection fraction 45%, with segmental wall motion abnormality described above, grade 1 diastolic dysfunction seen with tissue Doppler evidence of raised left atrial pressure. 2. Mild mitral and tricuspid regurgitation 3. No significant pericardial effusion noted.
== END 2018-10-17 13:30 | disposition home or self-care (01) ==
LOC: 2ND
PROVIDERS: ADMIT Emergency Medicine; ATTEND Emergency Medicine
DX: I11.0 Hypertensive heart disease with heart failure; Z95.5 Presence of coronary angioplasty implant and graft; E11.9 Type 2 diabetes mellitus without complications; I25.10 Atherosclerotic heart disease of native coronary artery without angina pectoris; I50.20 Unspecified systolic (congestive) heart failure; Z79.899 Other long term (current) drug therapy; I48.0 Paroxysmal atrial fibrillation; I44.7 Left bundle-branch block, unspecified
CPT/HCPCS: 33208; 33225; 36415; 71010; 71045; 80048; 80053; 80061; 80076; 82962; 83735; 84439; 84443; 84484; 85025; 85651; 93306; C1769; C1898; C1900; C2621; G0378; J2405; Q9967

== ENCOUNTER → 2019-01-28 11:41 | Outpatient (CLI) | payer MEDICARE, BC, SELFPAY ==
[2019-01-28 12:28] LABS: Amphetamine/Metha Screen,Urine Negative ng/mL (<1000); Barbiturates Screen,Urine Negative ng/mL (<200); Benzodiazepines Screen,Urine Positive ng/mL (<200); Cannabinoid Screen,Urine Negative ng/mL (<50); Cocaine Screen,Urine Negative ng/mL (<300); Methadone Screen,Urine Negative ng/mL (<300); Opiate Screen,Urine Positive ng/mL (<300); Phencyclidine Screen,Urine Negative ng/mL (<25)
--- NOTE | 2019-01-28 13:44 | CA_ITS ---
APPROVED REPORT Stock Sheets Cleaner Inspector: BERNARDA Laterality: Bilateral Study Quality: Good Indications: BECCA Doppler Spectral Velocity Analysis ECA (R) 101.00/ cm/s ECA (L) 127.00/ cm/s dICA (R) 144.00/44.00 cm/s dICA (L) 143.00/42.40 cm/s Amber (R) 120.00/28.30 cm/s Amber (L) 169.00/38.50 cm/s pICA (R) 73.90/18.90 cm/s pICA (L) 173.00/35.40 cm/s dCCA (R) 77.00/16.50 cm/s dCCA (L) 67.60/15.70 cm/s pCCA (R) 62.90/17.30 cm/s pCCA (L) 79.40/16.50 cm/s Vert (R) 70.70/ cm/s Vert (L) 73.90/ cm/s ICA/CCA 1.87 ICA/CCA 2.56 Conclusion Duplex evaluation demonstrates stenosis of the right proximal internal carotid artery in the range of 20-49% with PSV <140 cm/sec, EDV <100 cm/sec, and IC/CC Ratio <4.0.Duplex evaluation demonstrates stenosis of the left proximal internal carotid artery in the range of 70-99%(upper end of scale) with PSV =140 cm/sec, EDV =100 cm/sec, or IC/CC Ratio =4.0.Antegrade flow seen bilateral vertebral arteries.No change from prior study of 04/23/18 Electronically signed by : Jenaro Hyatt MD 01/30/2019 16:25:26
[2019-01-28 13:58] LABS: Basophils % 0.5 % (0.1-2.0); Eosinophils # 0.3 K/mm3 (0.0-0.4); Eosinophils % 3.4 % (0.1-12.0); Hematocrit 42.3 % (37.0-47.0); Hemoglobin 13.4 g/dL (12.2-16.2); Lymphocytes # 2.1 K/mm3 (0.7-4.5); Lymphocytes % 29.5 % (10-50); Mean Corpuscular HGB Conc 31.6 g/dL (31.8-35.4); Mean Corpuscular Hemoglobin 27.9 pg (27.0-31.2); Mean Corpuscular Volume 88.1 fl (81-99); Mean Platelet Volume 7.5 fl (7.4-10.4); Monocytes # 0.5 K/mm3 (0.1-1.0); Monocytes % 7.4 % (1.7-9.3); Neutrophils # 4.3 K/mm3 (1.8-7.8); Neutrophils % 59.1 % (37.0-80.0); Platelet Count 427 K/mm3 (142-424); Red Cell Distribution Width 12.8 % (11.5-17.5); White Blood Count 7.2 K/mm3 (4.8-10.8)
[2019-01-28 14:11] LABS: Troponin I < 0.02 ng/ml (0.00-0.06)
[2019-01-28 16:59] LABS: Alanine Aminotransferase 15 U/L (12-78); Albumin Level 3.6 gm/dL (3.4-5.0); Alkaline Phosphatase 69 U/L (46-116); Anion Gap 12.5 mEq/L (5-15); Aspartate Amino Transferase 15 U/L (15-37); Bilirubin,Direct 0.1 mg/dL (0.0-0.2); Bilirubin,Indirect 0.3 mg/dL (0.0-0.9); Bilirubin,Total 0.4 mg/dL (0.2-1.0); Blood Urea Nitrogen 25 mg/dL (7-18); Calcium 9.5 mg/dL (8.5-10.1); Carbon Dioxide 31 mmol/L (21.0-32.0); Chloride 104 mmol/L (98-107); Creatinine,Serum 1.12 mg/dL (0.55-1.02); Estimated Glomerular Filt Rate 47 ml/min (>60); Free T4 (Free Thyroxine) 0.93 ng/dl (0.76-1.46); GFR (African American) 56 ML/MIN (>60); Glucose 83 mg/dL (74-106); Potassium 5.5 mmoL/L (3.5-5.1); Sodium 142 mmol/L (136-145); Thyroid Stimulating Hormone 2.65 uIU/ml (0.358-3.740); Total Protein,Serum 7.6 gm/dL (6.4-8.2)
== END ==
PROVIDERS: Nurse Practitioner Family; Visit Provider Internal Medicine
DX: F11.90 Opioid use, unspecified, uncomplicated (principal); E78.2 Mixed hyperlipidemia; E11.9 Type 2 diabetes mellitus without complications; I11.9 Hypertensive heart disease without heart failure; I44.7 Left bundle-branch block, unspecified; I48.0 Paroxysmal atrial fibrillation; I65.23 Occlusion and stenosis of bilateral carotid arteries; R07.9 Chest pain, unspecified; R60.0 Localized edema; Z95.0 Presence of cardiac pacemaker; I25.10 Atherosclerotic heart disease of native coronary artery without angina pectoris; I77.9 Disorder of arteries and arterioles, unspecified; Z79.84 Long term (current) use of oral hypoglycemic drugs; Z87.891 Personal history of nicotine dependence
CPT/HCPCS: 36415; 80048; 80076; 80305; 84439; 84443; 84484; 85025; 93880

== ENCOUNTER → 2019-06-09 14:20 | Outpatient (POV) | payer MEDICARE, BC, SELFPAY | PROVIDERS: Visit Provider Nurse Practitioner Family | DX: Z00.00 Encounter for general adult medical examination without abnormal findings (principal) ==

== ENCOUNTER → 2020-01-20 12:49 | Outpatient (CLI) | payer MEDICARE, SELFPAY ==
--- NOTE | 2020-01-20 12:50 | CA_ITS ---
APPROVED REPORT Geriatric Aide: CT Laterality: Bilateral Study Quality: Good Indications: dizziness Risk Factors Hypertension: Hyperlipidemia CAD Doppler Spectral Velocity Analysis ECA (R) 133.90/6.70 cm/s ECA (L) 177.50/12.10 cm/s dICA (R) 149.30/43.50 cm/s dICA (L) 123.30/31.00 cm/s Amber (R) 162.30/45.90 cm/s Amber (L) 150.50/42.30 cm/s pICA (R) 148.30/36.60 cm/s pICA (L) 231.20/55.30 cm/s dCCA (R) 99.40/15.00 cm/s dCCA (L) 91.30/21.00 cm/s pCCA (R) 142.20/22.50 cm/s pCCA (L) 117.60/23.50 cm/s Vert (R) 75.40/15.50 cm/s Vert (L) 77.10/19.50 cm/s ICA/CCA 1.60 ICA/CCA 2.50 Findings Duplex evaluation demonstrates stenosis of the right proximal internal carotid artery in the range of 50-69%. Duplex evaluation demonstrates stenosis of the left proximal internal carotid artery in the range of 50-69%. Duplex evaluation demonstrates antegrade flow of the bilateral Vertebral Arteries. Conclusion Duplex evaluation demonstrates stenosis of the right proximal internal carotid artery in the range of 50-69%. Duplex evaluation demonstrates stenosis of the left proximal internal carotid artery in the range of 50-69%. Duplex evaluation demonstrates antegrade flow of the bilateral Vertebral Arteries. Electronically signed by : Jenaro Hyatt MD 01/20/2020 15:49:45
== END ==
PROVIDERS: Visit Provider Internal Medicine
DX: E11.9 Type 2 diabetes mellitus without complications (principal); E78.2 Mixed hyperlipidemia; E78.5 Hyperlipidemia, unspecified; F32.9 Major depressive disorder, single episode, unspecified; F41.9 Anxiety disorder, unspecified; I11.9 Hypertensive heart disease without heart failure; I25.10 Atherosclerotic heart disease of native coronary artery without angina pectoris; I44.7 Left bundle-branch block, unspecified; I48.91 Unspecified atrial fibrillation; I77.9 Disorder of arteries and arterioles, unspecified; M54.2 Cervicalgia; R06.00 Dyspnea, unspecified; R60.9 Edema, unspecified; Z95.0 Presence of cardiac pacemaker; I65.23 Occlusion and stenosis of bilateral carotid arteries
CPT/HCPCS: 93880

== ENCOUNTER → 2020-04-20 12:15 | Outpatient (CLI) | payer MEDICARE, SELFPAY ==
[2020-04-20 13:00] LABS: Basophils # 0.1 K/mm3 (0-0.2); Basophils % 0.6 % (0.1-2.0); Eosinophils # 0.4 K/mm3 (0.0-0.4); Eosinophils % 4.2 % (0.1-12.0); Hematocrit 39.8 % (37.0-47.0); Lymphocytes # 2.4 K/mm3 (0.7-4.5); Lymphocytes % 26.2 % (10-50); Mean Corpuscular HGB Conc 32.7 g/dL (31.8-35.4); Mean Corpuscular Hemoglobin 29.1 pg (27.0-31.2); Mean Platelet Volume 7.4 fl (7.4-10.4); Monocytes # 0.7 K/mm3 (0.1-1.0); Monocytes % 7.8 % (1.7-9.3); Neutrophils # 5.6 K/mm3 (1.8-7.8); Neutrophils % 61.3 % (37.0-80.0); Platelet Count 435 K/mm3 (142-424); Red Blood Count 4.47 M/mm3 (4.20-5.40); Red Cell Distribution Width 13.2 % (11.5-17.5); White Blood Count 9.1 K/mm3 (4.8-10.8)
[2020-04-20 13:31] LABS: Chloride 101 mmol/L (98-107)
[2020-04-20 13:32] LABS: Sodium 142 mmol/L (136-145)
[2020-04-20 13:35] LABS: Blood Urea Nitrogen 27 mg/dl (7-17); Calcium 10.2 mg/dl (8.4-10.2); Carbon Dioxide 33 mmol/L (22.0-30.0); Estimated Glomerular Filt Rate 53 ml/min (>60); GFR (African American) 64 ML/MIN (>60); Glucose 115 mg/dl (74-100)
[2020-04-20 13:57] LABS: Coronavirus 19 IgG Antibody Negative (Negative); Coronavirus 19 IgM Antibody Negative (Negative)
== END ==
PROVIDERS: Visit Provider Internal Medicine
DX: E78.2 Mixed hyperlipidemia (principal); I11.9 Hypertensive heart disease without heart failure; I20.9 Angina pectoris, unspecified; I48.0 Paroxysmal atrial fibrillation; I65.23 Occlusion and stenosis of bilateral carotid arteries; I67.2 Cerebral atherosclerosis; Z95.0 Presence of cardiac pacemaker; Z01.810 Encounter for preprocedural cardiovascular examination; Z03.818 Encounter for observation for suspected exposure to other biological agents ruled out
CPT/HCPCS: 36415; 80048; 85025; 86328

== ENCOUNTER 2020-04-21 09:34 | Day surgery (SDC) | payer MEDICARE, SELFPAY ==
[2020-04-21] VITALS (14 sets, daily range): BP systolic 103–190; BP diastolic 52–84; PULSE 60; RESP 16–20; TEMP 36.4–36.7; O2SAT 94–100; BMI 25.2
--- NOTE | 2020-04-21 07:11 | IR_ITS ---
APPROVED REPORT Patient Location: Outpatient Security Vehicle Patrol Officer: SANIYA Hurt RT (R) PROCEDURES Left heart catheterization Left ventriculogram Selective coronary angiogram Left internal mammary angiography Selective engage in the saphenous vein graft to the circumflex artery Selective engagement of saphenous vein graft to the right coronary INDICATION Known coronary disease, History of coronary bypass surgery, Accelerated angina pectoris, Class IV angina pectoris Informed consent was obtained prior to the procedure. COMPLICATIONS NONE Estimated Blood Loss: LESS THAN 10 ML TECHNIQUE One percent lidocaine used to anesthetize the right groin. The right femoral artery was accessed via the Seldinger technique and a 5 Turkmen sheath was placed in the right femoral artery. A JL 4, JR4 catheter were used to perform left heart catheterization, left ventriculogram selective coronary angiography as well as selective engagement of the 2 vein grafts and the left internal mammary artery. At the end of the procedure the patient was transferred to the postop holding area in stable condition for sheath removal. ANGIOGRAPHIC RESULTS The left main artery Has a stent in the ostial proximal mid segment which extends into the LAD. The midportion of the left main artery has a 20 to 30% stenosis which appears to be more from stent not being fully expanded rather than in-stent restenosis. The left anterior descending artery Stent originating off the left main artery extends into the proximal LAD and into the proximal portion of a moderate sized first diagonal artery the stent is widely patent free of in-stent restenosis with excellent antegrade flow into the diagonal artery. The LAD is occluded immediately after the diagonal artery. The circumflex artery Ostially occluded The right coronary artery Proximally occluded The VARNER ventriculogram reveals Ejection fraction of 40 to 45% The left ventricular end-diastolic pressure 10 mmHg The HUTTON is widely patent to the LAD The saphenous vein graft is widely patent the circumflex artery The saphenous vein graft is widely patent to the right coronary artery. Distal to the anastomosis the posterior descending artery is less than 2 mm in diameter and has an 80 to 90% stenosis. There is excellent backfilling of the posterior lateral branch IMPRESSION Adequate coronary revascularization as described above with no interval change from last heart catheterization earlier this year PLAN 1. Continue medical management 2. Evaluation of noncardiac symptoms Electronically signed by : Patrick Okeefe, 04/21/2020 12:39:11
--- NOTE | 2020-04-21 09:39 | CA_ITS ---
APPROVED REPORT EXAM: Comprehensive 2D, Doppler, and color-flow Echocardiogram [employer] Team Member: Sonia Fry RVT Ht: 5 ft 6 in Wt: 157lbs BSA: 1.80 BP: 104/73 mmHg Indications: ANGINA,HTN,HLD,STENTS,CABG,PACER,CAD,A-FIB 2D Dimensions LVOT 1.89 cm (M/F) 1.5-2.5 M-Mode Dimensions RVDd 4.13 cm (0.9-2.6) LA Diam 4.34 cm (1.9-4.0) LVDd 5.23 cm (3.5-5.7) Ao Diam 2.70 cm (2.0-3.7) LVDs 4.06 cm (3.5-5.7) IVSd 0.61 cm (0.6-1.1) PWd 0.91 cm (0.6-1.1) EF (Teich) 61.20% FS 33.40% EDV (Teich) 186.90 mL ESV (Teich) 72.50 mL LV Diastology E Decel Time 400.00 (160-240 msec) E/A Ratio 0.6 MED E' 3.30 (< 7 cm/sec) E'/MED E' Ratio 19.09 (>14) LAT E' 5.00 (<10 cm/sec) E/LAT E' Ratio 12.60 (>14) Mitral Valve MV E Max Steven. 63.00 (40-130 cm/s) MV A Velocity 102.00 (40-130 cm/s) E/A Ratio 0.62 MV Decel. Time 400.00 (160-240 ms) MV PHT 117.00 ms Pulmonary Valve PV Peak Velocity 104.00 (50-150 cm/s) Left Ventricle Left atrium is moderately enlarged, left ventricle is normal size, mild concentric left ventricular hypertrophy, visually estimated ejection fraction 50% with no obvious regional wall motion abnormality, endocardial surfaces are poorly visualized. Diastolic parameters are inconclusive. Right Ventricle Right atrium and right ventricle are mildly enlarged with normal contractility, there is a pacemaker lead seen the right atrium and right ventricle. Aortic Valve Aortic valve is thickened and calcified without Doppler evidence of aortic stenosis or aortic insufficiency. Mitral Valve Mitral valve leaflets are minimally thickened, there is mild mitral regurgitation. Tricuspid Valve Tricuspid valve grossly normal, there is mild tricuspid regurgitation. Pulmonic Valve Pulmonic valve is poorly visualized. Great Vessels Aortic root is normal size. Pericardium No significant pericardial effusion noted. Conclusion 1. Moderately enlarged left atrium, normal left ventricular size, mild concentric left ventricular hypertrophy, visually estimated ejection fraction is 50% with no obvious regional wall motion abnormality, diastolic parameters are inconclusive. 2. Mildly enlarged right ventricle with normal contractility. 3. Thickened and calcified aortic valve without Doppler evidence of aortic stenosis or aortic insufficiency. 4. Mild mitral and tricuspid regurgitation. 5. No significant pericardial effusion noted. Electronically signed by : Rolando Herron, 04/22/2020 15:29:49
== END 2020-04-21 15:50 | disposition home or self-care (01) ==
PROVIDERS: PCP Family Medicine; Visit Provider Internal Medicine
DX: E78.2 Mixed hyperlipidemia (principal); I11.9 Hypertensive heart disease without heart failure; I25.110 Atherosclerotic heart disease of native coronary artery with unstable angina pectoris; I48.0 Paroxysmal atrial fibrillation; I65.23 Occlusion and stenosis of bilateral carotid arteries; I67.2 Cerebral atherosclerosis; Z95.0 Presence of cardiac pacemaker; N18.9 Chronic kidney disease, unspecified; I25.2 Old myocardial infarction; Z95.1 Presence of aortocoronary bypass graft; Z79.01 Long term (current) use of anticoagulants; Z79.899 Other long term (current) drug therapy
CPT/HCPCS: 93306; 93459; 99152; C1725; C1769; C1894; J1644; Q9967

== ENCOUNTER → 2020-05-03 12:30 | Outpatient (CLI) | payer MEDICARE, SELFPAY ==
--- NOTE | 2020-05-03 12:34 | XR_ITS ---
PROCEDURE: XR CHEST 2V CLINICAL HISTORY: cp Chest pain COMPARISON: No exams were available for comparison FINDINGS: There has been a prior CABG. There is a tripolar pacemaker present from left subclavian approach composed a right atrial lead and biventricular leads. Normal heart size. Deformity noted of the right lateral thoracic wall with some scattered small foci of increased density in this region. Please correlate with patient's history. There are no previous exams available for comparison. There is some increased density noted in the right lung base which could be due to scarring with some tenting of the hemidiaphragm at this area. Developing nodule is also consideration. Follow-up suggested to confirm stability. Left lung is clear. IMPRESSION: Prior CABG with pacemaker present with suspected chronic changes on the right. Cannot exclude right lower lobe nodule. Follow-up suggested. Dictated by: Jenaro Hyatt MD 05/03/2020 13:15 Jenaro Hyatt MD in OV 05/03/2020 13:15
== END ==
PROVIDERS: PCP Family Medicine; Visit Provider Internal Medicine
DX: R07.9 Chest pain, unspecified; I20.9 Angina pectoris, unspecified; I11.9 Hypertensive heart disease without heart failure; I48.91 Unspecified atrial fibrillation; I65.29 Occlusion and stenosis of unspecified carotid artery; I67.2 Cerebral atherosclerosis; E78.5 Hyperlipidemia, unspecified; Z95.0 Presence of cardiac pacemaker
CPT/HCPCS: 71046

== ENCOUNTER → 2020-08-16 09:13 | Outpatient (POV) | payer MEDICARE, SELFPAY | PROVIDERS: Visit Provider Nurse Practitioner Family | DX: Z00.00 Encounter for general adult medical examination without abnormal findings (principal) ==

== ENCOUNTER → 2020-08-30 12:40 | Outpatient (CLI) | payer MEDICARE, SELFPAY ==
[2020-08-30 13:32] LABS: Basophils # 0.1 K/mm3 (0-0.2); Basophils % 0.7 % (0.1-2.0); Eosinophils # 0.3 K/mm3 (0.0-0.4); Eosinophils % 3.7 % (0.1-12.0); Hemoglobin 13.6 g/dL (12.2-16.2); Lymphocytes # 2.3 K/mm3 (0.7-4.5); Lymphocytes % 31.1 % (10-50); Mean Corpuscular HGB Conc 32.4 g/dL (31.8-35.4); Mean Corpuscular Hemoglobin 27.8 pg (27.0-31.2); Mean Corpuscular Volume 85.9 fl (81-99); Mean Platelet Volume 7.8 fl (7.4-10.4); Monocytes # 0.5 K/mm3 (0.1-1.0); Monocytes % 6.5 % (1.7-9.3); Neutrophils # 4.4 K/mm3 (1.8-7.8); Neutrophils % 58.1 % (37.0-80.0); Platelet Count 417 K/mm3 (142-424); Red Blood Count 4.88 M/mm3 (4.20-5.40); Red Cell Distribution Width 13.1 % (11.5-17.5); White Blood Count 7.5 K/mm3 (4.8-10.8)
[2020-08-30 14:02] LABS: Hemoglobin A1C 7.5 % (4.0-6.0)
[2020-08-30 14:42] LABS: Alanine Aminotransferase 13 U/L (12-78); Albumin Level 4.5 g/dl (3.5-5.0); Alkaline Phosphatase 87 U/L (38-126); Anion Gap 8.5 mEq/L (5-15); Aspartate Amino Transferase 24 U/L (14-36); Bilirubin,Indirect 0.5 mg/dL (0.0-0.9); Bilirubin,Total 0.5 mg/dl (0.2-1.3); Bilirubin,Unconjugated 0.5 mg/dL (0.0-1.1); Blood Urea Nitrogen 17 mg/dl (7-17); Calcium 9.7 mg/dl (8.4-10.2); Carbon Dioxide 34 mmol/L (22.0-30.0); Chloride 99 mmol/L (98-107); Estimated Glomerular Filt Rate 53 ml/min (>60); GFR (African American) 64 ML/MIN (>60); Glucose 144 mg/dl (74-100); HDL Cholesterol 45 mg/dl (40-60); Potassium 4.5 mmoL/L (3.5-5.1); Sodium 137 mmol/L (136-145); Total Protein,Serum 8.2 g/dl (6.3-8.2)
[2020-08-30 14:43] LABS: Albumin Level 4.5 g/dl (3.5-5.0); Anion Gap 14.4 mEq/L (5-15); Blood Urea Nitrogen 17 mg/dl (7-17); Calcium 9.8 mg/dl (8.4-10.2); Carbon Dioxide 32 mmol/L (22.0-30.0); Chloride 98 mmol/L (98-107); Estimated Glomerular Filt Rate 53 ml/min (>60); GFR (African American) 64 ML/MIN (>60); Glucose 146 mg/dl (74-100); Phosphorous 3.8 mg/dl (2.5-4.5); Potassium 4.4 mmoL/L (3.5-5.1); Sodium 140 mmol/L (136-145)
[2020-08-30 14:53] LABS: Direct LDL Cholesterol 206.61 mg/dL (100-129)
[2020-08-30 14:53] LABS: Intact Parathyroid Hormone 82.1 pg/mL (7.5-53.5)
[2020-08-30 14:56] LABS: Chol/HDL Ratio 10.2 (1-3.5); Cholesterol 459 mg/dl (140-200); Triglycerides 712 mg/dl (30-150)
[2020-08-30 14:58] LABS: Free T4 (Free Thyroxine) 1.03 ng/dl (0.78-2.19)
[2020-08-30 15:12] LABS: Thyroid Stimulating Hormone 3.98 uIU/mL (0.465-4.68)
== END ==
PROVIDERS: Internal Medicine Endocrinology, Diabetes & Metabolism; Visit Provider Internal Medicine
DX: E78.2 Mixed hyperlipidemia (principal); I25.10 Atherosclerotic heart disease of native coronary artery without angina pectoris; I44.7 Left bundle-branch block, unspecified; I65.23 Occlusion and stenosis of bilateral carotid arteries; I67.2 Cerebral atherosclerosis; I77.9 Disorder of arteries and arterioles, unspecified; K21.9 Gastro-esophageal reflux disease without esophagitis; R07.9 Chest pain, unspecified; R13.10 Dysphagia, unspecified; Z95.0 Presence of cardiac pacemaker; I11.9 Hypertensive heart disease without heart failure; F41.9 Anxiety disorder, unspecified; E11.9 Type 2 diabetes mellitus without complications
CPT/HCPCS: 36415; 80048; 80061; 80069; 80076; 83036; 83970; 84439; 84443; 85025

== ENCOUNTER 2020-09-03 10:13 | Day surgery (SDC) | payer MEDICARE, SELFPAY ==
[2020-08-31 13:20] VITALS: BMI 25.8
[2020-09-03 10:49] LABS: Coronavirus 19 IgG Antibody Positive (Negative); Coronavirus 19 IgM Antibody Negative (Negative)
[2020-09-03 12:07] VITALS: BP 176/78; PULSE 61; RESP 18; TEMP 36.6; O2SAT 95
[2020-09-03 12:24] LABS: POC Glucose,Bedside 138 (70-110)
--- NOTE | 2020-09-03 12:24 | P.PN_ITS ---
[facility] Anesthesia Checklist - Patient Identification Patient Identification: Arm Band - Structural Data Admitted From: Home Planned Operative Procedure/s: EGD Consent for Planned Operative Procedure(s) Verified: Yes - NPO Status Verified Time NPO: 00:00 - Additional verifications Anesthesia Reactions: No - Airway Assessment Dentition: Dentures-good fit - Neurological Assessment Level of Consciousness: Awake, Alert Hx Seizures: No Numbness or tingling in extremities: No - Anesthesia Plan Anesthesia Risk discussed: Yes Anesthesia Plan: Verified ASA Class: III Anesthesia Type: MAC [facility] History I have reviewed the patient's past medical history: Yes Medical History: Reports:: Anxiety, Atrial Fibrillation, Coronary Artery Disease, Diabetes Mellitus Type 2, Hyperlipidemia, Hypertension, Internal Pacemaker, Myocardial Infarction, Peripheral Artery Disease, Transient Ischemic Attacks (TIA) Denies:: Cancer, Diabetes Mellitus Type 1, MRSA, Seizures *Have you ever received a pneumonia vaccine?: Yes *Have you received a flu vaccine this season?: Yes Anesthesia experience/problems:: None Other Surgeries: Yes: Cardiac Catheterization, Cholecystectomy, Coronary Stent, Hernia Repair, Pacemaker Amputation: No Fractures: No - *Social History Last grade of school completed: 9th or 10th Smoking Status: Never smoker Tobacco Type: cigarettes # Packs/Day (cigarettes): 1 Alcohol Intake: never Alcohol Intake Frequency:: holidays/special occasions only Substance Use Type: denies use *Occupational Status:: retired Housing: house Household Members: significant other *Travel in the last 8 weeks: None - Psychiatric History Pschychiatric History:: Reports:: Anxiety Family Hx:: Diabetes, Heart Attack
[2020-09-03 12:42] VITALS: O2SAT 97
--- NOTE | 2020-09-03 13:01 | HMH.PROC ---
[facility] Procedure Note Procedure Note:: Upper Endoscopy Procedure Report: Esophagogastroduodenoscopy with cold biopsies and TTS balloon dilation Endoscopost: Bhaskar Archibald II, MD Referring Physician: Patrick Okeefe MD Date of Procedure: September 03, 2020 Equipment: Olympus GIF 190 standard upper endoscope Sedation: MAC sedation Indications: Mrs. Villanueva is an 84-year-old female who has had dyspepsia. She had an EGD with dilation with me and June 2019 and did have a Schatzki's ring. The patient recently was seen by JONAS Starr. She does have a history of a prior hiatal hernia repair (Dr. Steve Maldonado). She has had more severe nausea and vomiting that occur 5-7 nights per week. She has epigastric abdominal pain. She has struggled with chronic constipation. She has been on omeprazole for many years. She did stop taking the fiber bowel regimen (MiraLAX plus Metamucil) and began to take stimulant laxatives. She does state that her brother had esophageal cancer. She does report some dysphagia. Procedure: Prior to the procedure, a history and physical exam was performed, and patient's medications and allergies were reviewed. The risks, benefits and alternatives of the sedation and procedure were discussed with the patient. All questions were answered and informed consent was obtained. The patient was brought to the procedure room. Patient identification and proposed procedure were verified by the physician and the nurse. The patient was placed in a left lateral decubitus position and the scope was passed under direct vision. Throughout the procedure, the patient's blood pressure, pulse, and oxygen saturations were monitored continuously. The upper GI endoscopy was accomplished without difficulty. The patient tolerated the procedure well. Findings: The scope was passed directly into the upper esophagus and advanced to the third portion of the duodenum. The post bulbar duodenum and duodenal bulb had normal conniventes. There were however some superficial ulcerations in the bulb, first and second portion of the duodenum. Biopsies were obtained. The scope was withdrawn through a normal duodenal bulb and pylorus into the stomach. There was evidence of linear reactive gastropathy of the antrum and body of the stomach. The remainder of the fundus of the stomach was grossly normal. Upon retroflexion there was evidence of prior fundoplication with minimal recurrent hiatal hernia. 2 biopsies were taken in the antrum and along the lesser curvature for histology to rule out gastritis and/or H pylori. The scope was then withdrawn into the esophagus. Cold biopsies were taken at the GE junction. The entire esophagus was dilated to 60 Sami/20 mm with a TTS hydrostatic balloon. There was distal ring. There was some resistance at the cricopharyngeus. The remainder of the esophageal mucosa was normal. Impression: 1. Distal esophageal ring status post dilation to 20 mm 2. 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 Linear reactive gastropathy 4. Nonspecific duodenitis Plan: I will follow-up the biopsies. I would have her continue the dietary measures, fiber bowel regimen and possibly misoprostol. I would also consider additional treatment options for her functional dyspepsia.
[2020-09-03 13:04] VITALS: BP 122/41; PULSE 60; RESP 20; TEMP 36.3; O2SAT 96
[2020-09-03 13:14] VITALS: BP 106/42; PULSE 60; RESP 20; O2SAT 96
[2020-09-03 13:24] VITALS: BP 130/72; PULSE 55; O2SAT 96
[2020-09-03 13:34] VITALS: BP 145/70; PULSE 58; RESP 20; O2SAT 97
== END 2020-09-03 14:00 | disposition home or self-care (01) ==
LOC: OUTP 10:18
PROVIDERS: PCP Family Medicine; Visit Provider Internal Medicine Gastroenterology
PROC: 0DJ08ZZ Inspection of Upper Intestinal Tract, Via Natural or Artificial Opening Endoscopic (ICD-10-PCS; CPT 43235; principal; 2020-09-03 12:30)
DX: K22.2 Esophageal obstruction (principal); K21.9 Gastro-esophageal reflux disease without esophagitis; K22.4 Dyskinesia of esophagus; J39.2 Other diseases of pharynx; K31.9 Disease of stomach and duodenum, unspecified; K29.80 Duodenitis without bleeding; Z80.0 Family history of malignant neoplasm of digestive organs; F41.9 Anxiety disorder, unspecified; I48.91 Unspecified atrial fibrillation; I25.10 Atherosclerotic heart disease of native coronary artery without angina pectoris; E11.9 Type 2 diabetes mellitus without complications; I10 Essential (primary) hypertension
CPT/HCPCS: 43239; 43249; 36415; 82962; 86328; 88305; C1726

== ENCOUNTER → 2020-11-22 13:19 | Outpatient (POV) | payer MEDICARE, SELFPAY | PROVIDERS: Visit Provider Nurse Practitioner Family | DX: Z00.00 Encounter for general adult medical examination without abnormal findings (principal) ==

== ENCOUNTER 2022-06-14 13:00 | Observation (INO) | payer MEDICARE, BC, SELFPAY ==
[2022-06-14] VITALS (7 sets, daily range): BP systolic 120–175; BP diastolic 57–75; PULSE 60–68; RESP 18; TEMP 36.6–37.2; O2SAT 96–97; BMI 26.8
--- NOTE | 2022-06-14 13:03 | CA_ITS ---
APPROVED REPORT EXAM: Comprehensive 2D, Doppler, and color-flow Echocardiogram Fashion Show Director: Marychuy Rodriguez RT(R) Ht: 5 ft 6 in Wt: 162lbs BSA: 1.83 BP: 189/67 mmHg Indications: Angina, pacemaker, AFIB, CAD, GERD, hx CABG, fatigue, HTN, hyperlipidemia, CP 2D Dimensions LVOT 2.04 cm (M/F) 1.5-2.5 LA Volume 81.50 mL LA Volume Index 44.54 mL/m2 (M/F) 16-34 M-Mode Dimensions RVDd 3.12 cm (0.9-2.6) LA Diam 4.60 cm (1.9-4.0) LVDd 5.89 cm (3.5-5.7) Ao Diam 2.70 cm (2.0-3.7) LVDs 4.97 cm (3.5-5.7) IVSd 0.88 cm (0.6-1.1) PWd 0.96 cm (0.6-1.1) EF (Teich) 32.40% FS 15.60% EDV (Teich) 172.50 mL ESV (Teich) 116.60 mL LV Diastology E Decel Time 197.00 (160-240 msec) E/A Ratio 0.7 MED E' 3.90 (< 7 cm/sec) E'/MED E' Ratio 16.72 (>14) LAT E' 4.70 (<10 cm/sec) E/LAT E' Ratio 13.87 (>14) Mitral Valve MV E Max Steven. 65.00 (40-130 cm/s) MV A Velocity 93.00 (40-130 cm/s) E/A Ratio 0.70 MV Decel. Time 197.00 (160-240 ms) MV PHT 58.00 ms Tricuspid Valve TR P. Velocity 271.00 cm/s RAP Estimate 15.00 mmHg RVSP 44.30 mmHg Left Ventricle Left atrium is moderately enlarged, left ventricle is normal size, mild concentric left ventricular hypertrophy, estimated ejection fraction approximately 45%, left ventricle is globally hypokinetic. Diastolic parameters are inconclusive. Right Ventricle Right atrium and right ventricle are mildly enlarged with normal contractility, pacemaker leads in the right ventricle. Aortic Valve Aortic valve is thickened and calcified without Doppler evidence of aortic stenosis or aortic insufficiency. Mitral Valve Mitral valve has mitral annular calcification which extends in both anterior posterior mitral leaflet, there is no significant mitral inflow obstruction, there is mild mitral regurgitation. Tricuspid Valve Tricuspid valve leaflets are minimally thickened, there is mild tricuspid regurgitation, calculated right ventricular systolic pressure is 44 mmHg. Pulmonic Valve Pulmonic valve is poorly visualized. Great Vessels Aortic root is normal size. Inferior vena cava is poorly visualized. Pericardium No significant pericardial effusion noted. Conclusion 1. Biatrial enlargement, normal left ventricular size, mild concentric left ventricular hypertrophy, estimated ejection fraction 45% left ventricle is globally hypokinetic, diastolic parameters are inconclusive. 2. Mildly enlarged right ventricle with normal contractility. 3. Thickened and calcified aortic valve without Doppler evidence of aortic stenosis or significant aortic insufficiency. 4. Mild mitral and tricuspid regurgitation, calculated right ventricular systolic pressure is 44 mmHg. 5. No significant pericardial effusion noted. 6. Inferior vena cava is poorly visualized. Electronically signed by : Rolando Herron MD 06/15/2022 06:15:35
--- NOTE | 2022-06-14 13:22 | PC.NURSE ---
patient arrived by wheelchair to floor at 13:12
[2022-06-14 13:32] LABS: Basophils % 0.5 % (0.1-2.0); Eosinophils # 0.2 K/mm3 (0.0-0.4); Eosinophils % 2.4 % (0.1-12.0); Hematocrit 38.6 % (37.0-47.0); Hemoglobin 12.2 g/dL (12.2-16.2); Lymphocytes # 2.2 K/mm3 (0.7-4.5); Lymphocytes % 28.1 % (10-50); Mean Corpuscular HGB Conc 31.5 g/dL (31.8-35.4); Mean Corpuscular Hemoglobin 28.4 pg (27.0-31.2); Mean Platelet Volume 8.2 fl (7.4-10.4); Monocytes # 0.4 K/mm3 (0.1-1.0); Monocytes % 4.7 % (1.7-9.3); Neutrophils % 64.3 % (37.0-80.0); Platelet Count 378 K/mm3 (142-424); Red Blood Count 4.29 M/mm3 (4.20-5.40); Red Cell Distribution Width 12.8 % (11.5-17.5); White Blood Count 7.7 K/mm3 (4.8-10.8)
[2022-06-14 13:39] LABS: Chloride 109 mmol/L (98-107); Potassium 5.1 mmoL/L (3.5-5.1); Sodium 147 mmol/L (136-145)
[2022-06-14 13:41] LABS: Blood Urea Nitrogen 21 mg/dl (7-17); Creatinine Clearance Estimated 49 mL/min (50-200); Estimated Glomerular Filt Rate 53 ml/min (>60); GFR (African American) 64 ML/MIN (>60)
[2022-06-14 13:42] LABS: Coronavirus 19, PCR Not Detected (NotDetected); Influenza A, PCR Not Detected (NotDetected); Influenza B, PCR Not Detected (NotDetected)
[2022-06-14 13:42] LABS: Alanine Aminotransferase 24 U/L (12-78); Albumin Level 4.3 g/dl (3.5-5.0); Albumin/Globulin Ratio 1.2 (1.1-1.8); Alkaline Phosphatase 48 U/L (38-126); Anion Gap 10.1 mEq/L (5-15); Aspartate Amino Transferase 38 U/L (14-36); Bilirubin,Total 0.6 mg/dl (0.2-1.3); Calcium 9.5 mg/dl (8.4-10.2); Carbon Dioxide 33 mmol/L (22.0-30.0); Chol/HDL Ratio 2.9 (1-3.5); Cholesterol 154 mg/dl (140-200); Globulin 3.5 g/dL (1.3-3.2); Glucose 123 mg/dl (74-100); HDL Cholesterol 53 mg/dl (40-60); Magnesium 1.8 mg/dl (1.6-2.3); Total Protein,Serum 7.8 g/dl (6.3-8.2); Triglycerides 216 mg/dl (30-150); VLDL Cholesterol 43 mg/dL (0-40)
[2022-06-14 13:53] LABS: Hemoglobin A1C 6.4 % (4.0-6.0)
[2022-06-14 13:54] LABS: Direct LDL Cholesterol 56.39 mg/dL (100-129)
[2022-06-14 13:55] LABS: Troponin I < 0.01 ng/ml (0.00-0.034)
--- NOTE | 2022-06-14 14:14 | EXP.HP ---
History of Present Illness *Admission Date: 06/14/22 *Reason for visit:: Persistent chest pain, shortness of breath with exertion *History of present illness: Ms. Villanueva is a pleasant 86-year-old female with significant history of coronary artery disease, peripheral artery disease, status post CABG, pacemaker, stenting, complicated by diabetes and history of smoking (has not smoked in 15 years). She presented to cardiology clinic today as an outpatient with complaint of worsening chest pressure and shortness of breath over the past several weeks. Denies bc syncope, nausea, referred pains. No GI symptoms. Pain relieved by rest, occurs at random. Reports compliance with her medications. Cardiology contacted hospital medicine for admission to proceed with further evaluation. On arrival to the floor, patient appears in her baseline level of health. Able to give clear history of what sounds like unstable angina. No shortness of breath or active chest pain on exam. [facility] Disclaimer: The information contained in this section may have been updated after the patient was seen, as this information can be updated by other users. Medical History CAD (coronary artery disease) Cardiac pacemaker in situ Contact dermatitis Depression Difficulty swallowing DM2 (diabetes mellitus, type 2) HTN (hypertension) Restless legs Unstable angina Surgical History History of cardiac cath History of cholecystectomy Family History No significant family history Social History Smoking Status: Never smoker second hand exposure: No alcohol intake: never substance use type: denies use current occupational status: retired Travel in the last 8 weeks: None household members: significant other housing: house number of children: 0 current occupational exposures/hazards: No caffeine: No Review of Systems Review of Systems Review of systems (narrative): 14 point review of systems performed, pertinent positives and negatives as per HPI Meds Home Medications and Allergies Home Medications Medication Instructions Recorded Confirmed Type aspirin 81 mg tablet,delayed 81 mg PO DAILY HEART HEALTH 05/28/17 06/14/22 History release (Adult Low Dose Aspirin) clopidogrel 75 mg tablet (Plavix) 75 mg PO DAILY PLATELET [employer]HIB[employer]OR 01/20/20 06/14/22 Rx #90 tabs omeprazole 40 mg capsule,delayed 40 mg PO DAILYP PRN GERD 04/20/20 06/14/22 History release memantine 5 mg tablet 5 mg PO BID memory 05/31/22 06/14/22 History metformin 500 mg tablet,extended 500 mg PO BID Diabetes 05/31/22 06/14/22 History release 24hr acetaminophen 300 mg-codeine 30 mg 1 tab PO TIDP PRN MILD TO MODERATE 06/14/22 06/14/22 History tablet PAIN bupropion HCl 150 mg 24 hr tablet, 150 mg PO DAILY MOOD 06/14/22 06/14/22 History extended release carvedilol 25 mg tablet 25 mg PO BID High blood pressure 06/14/22 06/14/22 History cholecalciferol (vitamin D3) 125 125 mcg PO DAILY Supplement 06/14/22 06/14/22 History mcg (5,000 unit) capsule isosorbide mononitrate 30 mg 30 mg PO DAILY Chest pain 06/14/22 06/14/22 History tablet,extended release 24 hr rosuvastatin 20 mg tablet 20 mg PO HS Cholesterol 06/14/22 06/14/22 History New Prescriptions to Start Prescriptions: Allergies Allergy/AdvReac Type Severity Reaction Status Date / Time ropinirole [From Requip] Allergy Mild vomiting Verified 06/14/22 10:43 Exam Data for Last 24 hours Vital signs and Labs for Last 24 Hours: Temp Pulse Resp BP Pulse Ox 97.8 F 61 18 120/70 97 06/14/22 13:36 06/14/22 13:36 06/14/22 13:36 06/14/22 13:36 06/14/22 13:36 Laboratory Results - last 24 hr 06/14/22 13:20: WBC 7.7, RBC 4.29, Hgb 12.2, Hct 38.6, MCV 90.0, MCH 28.4, MCHC
--- NOTE | 2022-06-14 15:28 | EXP.CARD.PN ---
Subjective Subjective Date: 06/14/22 Time: 15:28 Principal diagnosis: Unstable angina Interval history: 86-year-old white female seen in the office today and admitted for unstable angina. She has prior bypass and multiple stents. Please see the office note from today. Plan for cardiac catheterization tomorrow. Past medical history: CAD-Medical management in 06/2019 and 04/2020 (see report below) Hx of CABG and coronary stenting. DAPT with ASA and Plavix. HTN-BP elevated. Patient weight up 4 lbs PAD is stable. Last LE runoff, 06/2019 looked at RLE only. Recent stenting of lower extremities at another facility [facility] is present, 50-69% bilateral ICA,?JAN 2020. History of prior right carotid endarterectomy HLD-LDL goal is < 55. LDL 206 SPA COORDINATOR-P in place. DM2, is present. GERD is present Prior EGD with esophageal dilatation, 08/2020. Notation of nonerosive GERD with moderate esophageal dysmotility with cricopharyngeal spasm and intact fundoplication noted. Linear reactive gastropathy. Nonspecific duodenitis [facility] APR 2020 ANGIOGRAPHIC RESULTS The left main artery Has a stent in the ostial proximal mid segment which extends into the LAD.? The midportion of the left main artery has a 20 to 30% stenosis which appears to be more from stent not being fully expanded rather than in-stent restenosis. The left anterior descending artery Stent originating off the left main artery extends into the proximal LAD and into the proximal portion of a moderate sized first diagonal artery the stent is widely patent free of in-stent restenosis with excellent antegrade flow into the diagonal artery.? The LAD is occluded immediately after the diagonal artery. The circumflex artery Ostially occluded The right coronary artery Proximally occluded The VARNER ventriculogram reveals Ejection fraction of 40 to 45% The left ventricular end-diastolic pressure 10 mmHg The HUTTON is widely patent to the LAD The saphenous vein graft is widely patent the circumflex artery The saphenous vein graft is widely patent to the right coronary artery.? Distal to the anastomosis the posterior descending artery is less than 2 mm in diameter and has an 80 to 90% stenosis.? There is excellent backfilling of the posterior lateral branch IMPRESSION Adequate coronary revascularization as described above with no interval change from last heart catheterization earlier this year PLAN 1. Continue medical management 2. Evaluation of noncardiac symptoms Exam Data for Last 24 hours Vital signs and Labs for Last 24 Hours: Temp Pulse Resp BP Pulse Ox 97.8 F 60 18 120/70 97 06/14/22 13:36 06/14/22 14:20 06/14/22 13:36 06/14/22 13:36 06/14/22 13:36 Laboratory Results - last 24 hr 06/14/22 13:20: WBC 7.7, RBC 4.29, Hgb 12.2, Hct 38.6, MCV 90.0, MCH 28.4, MCHC 31.5 L, RDW 12.8, Plt Count 378, MPV 8.2, Neut % (Auto) 64.3, Lymph % (Auto) 28.1, [place] % (Auto) 4.7, Eos % (Auto) 2.4, Baso % (Auto) 0.5, Neut # (Auto) 5.0, Lymph # (Auto) 2.2, [place] # (Auto) 0.4, Eos # (Auto) 0.2, Baso # (Auto) 0.0 06/14/22 13:20: Sodium 147 H, Potassium 5.1, Chloride 109 H, Carbon Dioxide 33 H, Anion Gap 10.1, BUN 21 H, Creatinine 1.00, Estimated Creat Clear 49, Estimated GFR 53 L, Est GFR ( Amer) 64, Glucose 123 H, Calcium 9.5, Magnesium 1.8, Total Bilirubin 0.6, AST 38 H, ALT 24, Alkaline Phosphatase 48, Total Protein 7.8, Albumin 4.3, Globulin 3.5 H, Albumin/Globulin Ratio 1.2, Triglycerides 216 H, Cholesterol 154, LDL Cholesterol Direct 56.39 L, VLDL Cholesterol 43 H, HDL Cholesterol 53, Cholesterol/HDL Ratio 2.9 06/14/22 13:20: Troponin I < 0.01 06/14/22 13:20: Hemoglobin A1c 6.4 H 06/14/22 13:40: SARS-CoV-2 (PCR) Not detected, Influenza A Untype (PCR) Not detected, Influenza Type B (PCR) Not detected I & O for Last 24 hours: Intake & Output 06/12/22 06/13/22 06/14/22 06/15/22 11:59 11:59 11:59 11:59 Weight 166 lb 3 oz Constitutional Constitutional: no acute distress *Routine Respirat
--- NOTE | 2022-06-14 15:51 | HMH.PHAINT1 ---
Pharmacy Intervention Comments: MEDICATION RECONCILIATION COMPLETE USING LIST FROM MOST RECENT CARDIOLOGY OFFICE VISIT (06/14/2022) AND EXTERNAL PHARMACY FILL HISTORY.
[2022-06-14 17:14] LABS: POC Glucose,Bedside 176 (70-110)
[2022-06-14 17:58] LABS: Troponin I < 0.01 ng/ml (0.00-0.034)
[2022-06-14 20:09] LABS: Troponin I < 0.01 ng/ml (0.00-0.034)
[2022-06-14 21:21] LABS: POC Glucose,Bedside 163 (70-110)
--- NOTE | 2022-06-14 22:42 | PC.NURSE ---
spoke with md moraes at 2201. stated pt could have breakfast in the am.
[2022-06-15] VITALS (18 sets, daily range): BP systolic 112–153; BP diastolic 53–81; PULSE 58–70; RESP 16–20; TEMP 36.4–36.9; O2SAT 92–100; BMI 27.1
[2022-06-15 00:40] LABS: T4 (Thyroxine) 8.9 ug/dl (5.53-11.0)
[2022-06-15 00:54] LABS: Thyroid Stimulating Hormone 1.74 uIU/mL (0.465-4.68)
--- NOTE | 2022-06-15 04:37 | PC.NURSE ---
NO ACUTE CHANGES SINCE PREVIOUS ASSESSMENT. PT HAS RESTED WELL THIS SHIFT NO C/O OF CHEST PAIN OR SOB. BP WAS ELEVATED AT THE BEGINNING OF THE SHIFT. SPOKE WITH MD HODGSON. NEW ORDERS RECEIVED. PT BP IS NOW 141/57. VSS. REMAINS A FEBRILE. TURNING INDEPENDENTLY. PACED ON TELE.
[2022-06-15 05:50] LABS: POC Glucose,Bedside 122 (70-110)
[2022-06-15 06:48] LABS: Basophils % 0.5 % (0.1-2.0); Eosinophils # 0.2 K/mm3 (0.0-0.4); Eosinophils % 2.7 % (0.1-12.0); Hematocrit 35.3 % (37.0-47.0); Hemoglobin 11.6 g/dL (12.2-16.2); Lymphocytes # 1.8 K/mm3 (0.7-4.5); Lymphocytes % 22.1 % (10-50); Mean Corpuscular Hemoglobin 29.3 pg (27.0-31.2); Mean Corpuscular Volume 88.9 fl (81-99); Mean Platelet Volume 8.2 fl (7.4-10.4); Monocytes # 0.6 K/mm3 (0.1-1.0); Monocytes % 7.6 % (1.7-9.3); Neutrophils # 5.5 K/mm3 (1.8-7.8); Platelet Count 340 K/mm3 (142-424); Red Blood Count 3.96 M/mm3 (4.20-5.40); Red Cell Distribution Width 12.7 % (11.5-17.5); White Blood Count 8.2 K/mm3 (4.8-10.8)
[2022-06-15 06:52] LABS: Chloride 108 mmol/L (98-107); Potassium 4.1 mmoL/L (3.5-5.1); Sodium 142 mmol/L (136-145)
[2022-06-15 06:54] LABS: Blood Urea Nitrogen 21 mg/dl (7-17); Creatinine Clearance Estimated 50 mL/min (50-200); Estimated Glomerular Filt Rate 53 ml/min (>60); GFR (African American) 64 ML/MIN (>60)
[2022-06-15 06:55] LABS: Anion Gap 9.1 mEq/L (5-15); Calcium 9.3 mg/dl (8.4-10.2); Carbon Dioxide 29 mmol/L (22.0-30.0); Glucose 122 mg/dl (74-100); Magnesium 1.6 mg/dl (1.6-2.3)
--- NOTE | 2022-06-15 07:02 | IR_ITS ---
APPROVED REPORT Patient Location: Inpatient Conveyor Feeder: SANIYA Hurt RT (R) PROCEDURES Selective coronary angiogram Left internal mammary angiography Selective engage in the saphenous vein graft to circumflex artery Selective engagement saphenous vein graft to the right coronary artery INDICATION Coronary artery disease, History of coronary bypass surgery, Unstable Informed consent was obtained prior to the procedure. COMPLICATIONS None Estimated Blood Loss: Less than 10 mls TECHNIQUE One percent lidocaine used to anesthetize the right groin. The right femoral artery was accessed via the Seldinger technique and a 5 Martiniquais sheath was placed in the right femoral artery. A JL 4, JR4 catheter were used to perform selective coronary angiography as well as selective engagement of the 2 vein grafts and the left internal mammary artery. At the end of the procedure the patient was transferred to the postop holding area in stable condition for sheath removal. ANGIOGRAPHIC RESULTS The left main artery Has a stent in the ostial proximal mid distal segment which extends into the proximal LAD. The stent is widely patent with 30% concentric in-stent restenosis at the junction of the left main artery and LAD The left anterior descending artery Has a stent which originates off the left main artery and is widely patent with a 30% stenosis. This extends into a large first diagonal artery which is also widely patent. The mid portion of this diagonal artery has an eccentric 80% stenosis over the vessel is less than 2 mm in diameter The circumflex artery Ostially occluded The right coronary artery Ostially occluded The VARNER ventriculogram reveals Not performed The left ventricular end-diastolic pressure Not measured HUTTON to LAD widely patent Saphenous vein graft to circumflex artery widely patent Saphenous vein graft to right coronary artery widely patent IMPRESSION Adequate hybrid coronary artery revascularization PLAN 1. Continue medical management for coronary artery disease 2. Given patient's age and 5 Martiniquais sheath in the right groin it is recommended she spend the night tonight and then be discharged home in the morning providing all metrics are acceptable 3. Control of hypertension 4. Consideration for EGD to better evaluate chest pain Electronically signed by : Patrick Okeefe MD 06/15/2022 14:43:31
[2022-06-15 11:26] LABS: POC Glucose,Bedside 121 (70-110)
--- NOTE | 2022-06-15 14:55 | EXP.CARD.PN ---
Subjective Subjective Date: 06/15/22 Time: 14:55 Principal diagnosis: Unstable angina Interval history: 86-year-old white female in bed in no acute distress. No complaints overnight. Plan is for cardiac cath today. Exam Data for Last 24 hours Vital signs and Labs for Last 24 Hours: Temp Pulse Resp BP Pulse Ox 98.5 F 58 L 17 144/59 H 97 06/15/22 10:54 06/15/22 10:54 06/15/22 10:54 06/15/22 10:54 06/15/22 10:54 Laboratory Results - last 24 hr 06/14/22 16:27: Troponin I < 0.01 06/14/22 17:06: POC Glucose 176 H 06/14/22 19:39: Troponin I < 0.01 06/14/22 21:12: POC Glucose 163 H 06/15/22 00:00: TSH 1.74, Thyroxine (T4) 8.9 06/15/22 05:40: POC Glucose 122 H 06/15/22 06:35: WBC 8.2, RBC 3.96 L, Hgb 11.6 L, Hct 35.3 L, MCV 88.9, MCH 29.3, MCHC 33.0, RDW 12.7, Plt Count 340, MPV 8.2, Neut % (Auto) 67.0, Lymph % (Auto) 22.1, [place] % (Auto) 7.6, Eos % (Auto) 2.7, Baso % (Auto) 0.5, Neut # (Auto) 5.5, Lymph # (Auto) 1.8, [place] # (Auto) 0.6, Eos # (Auto) 0.2, Baso # (Auto) 0.0 06/15/22 06:35: Sodium 142, Potassium 4.1, Chloride 108 H, Carbon Dioxide 29, Anion Gap 9.1, BUN 21 H, Creatinine 1.00, Estimated Creat Clear 50, Estimated GFR 53 L, Est GFR ( Amer) 64, Glucose 122 H, Calcium 9.3, Magnesium 1.6 D 06/15/22 11:16: POC Glucose 121 H I & O for Last 24 hours: Intake & Output 06/13/22 06/14/22 06/15/22 06/16/22 11:59 11:59 11:59 11:59 Intake Total 420 / 420 Output Total 0 / 0 0 / 0 Balance 420 / 420 0 / 0 Weight 168 lb 8 oz Constitutional Constitutional: no acute distress *Routine Respiratory Exam Respiratory: Present CTA bilaterally *Routine Cardiovascular Exam Cardiovascular: Present RRR Progress Note: A&P Assessment and plan (1) Unstable angina: Status: Acute (2) Type 2 diabetes mellitus without complication: Status: Chronic (3) Mixed hyperlipidemia: Status: Chronic (4) Anxiety: Status: Chronic (5) Hypertensive heart disease: Status: Chronic (6) Cardiac pacemaker in situ: Status: Chronic (7) Status post biventricular pacemaker: Status: Chronic (8) Arteriosclerosis of arterial coronary artery bypass graft: Status: Chronic (9) Renal insufficiency: Status: Acute (10) Carotid artery stenosis: Status: Chronic (11) Hyperlipemia: Status: Chronic Assessment and Plan Assessment and Plan for All Diagnoses:: 1. Coronary disease with prior bypass and multiple vessel stenting in the past presented with unstable angina despite being on beta-amy and isosorbide. Patient was admitted for stabilization with plans for cardiac catheterization via femoral approach. Continue aspirin and Plavix. 2. [employer]-Pacemaker in situ 3. Hyperlipidemia, on statin therapy with LDL 56 this admission 4. Hypertension, controlled 5. History of carotid artery stenosis status post right carotid endarterectomy 6. PAD with recent peripheral stenting, patient is on aspirin and Plavix. 7. Diabetes mellitus type 2 [facility] today: ANGIOGRAPHIC RESULTS The left main artery Has a stent in the ostial proximal mid distal segment which extends into the proximal LAD.? The stent is widely patent with 30% concentric in-stent restenosis at the junction of the left main artery and LAD The left anterior descending artery Has a stent which originates off the left main artery and is widely patent with a 30% stenosis.? This extends into a large first diagonal artery which is also widely patent.? The mid portion of this diagonal artery has an eccentric 80% stenosis over the vessel is less than 2 mm in diameter The circumflex artery Ostially occluded The right coronary artery Ostially occluded The VARNER ventriculogram reveals Not performed The left ventricular end-diastolic pressure Not measured HUTTON to LAD widely patent Saphenous vein graft to circumflex artery widely patent Saphenous vein graft to right coronary artery widely patent IMPRESSION Adequate hybrid coronary
--- NOTE | 2022-06-15 17:32 | EXP.ACUTE.PN ---
Subjective *Date: 06/15/22 *Time: 12:32 Interval history: Patient did well overnight and remained on room air. Denies chest pain, nausea, vomiting, shortness of breath. Troponins remain negative. Cardiology saw patient this morning, planning on elective left heart cath. Medical Exam Vital signs and Labs for Last 24 Hours: Vital Signs Temp Pulse Pulse Resp BP Pulse Ox 06/15/22 12:00 60 06/15/22 10:54 98.5 F 58 L 17 144/59 H 97 06/15/22 08:00 70 06/15/22 08:00 61 16 97 06/15/22 07:10 98.4 F 59 L 17 152/81 H 97 06/15/22 04:00 70 06/15/22 03:52 98.4 F 70 18 141/57 H 98 06/15/22 00:00 70 06/14/22 20:00 60 06/14/22 23:58 98.7 F 68 18 140/57 L 96 06/14/22 19:44 98.9 F 61 18 175/63 H 97 Intake and Output 06/15/22 06/15/22 06/15/22 07:59 15:59 23:59 Intake Total 300 / 300 Output Total 0 / 0 0 / 0 Balance 300 / 300 0 / 300 Intake: Intake, Oral Amount 300 / 300 Output: Output, Urine Amount 0 / 0 0 / 0 Other: Number of Unmeasured Voids 1 1 Weight 76.43 kg Patient Weight 06/15/22 23:59 Weight 76.43 kg Laboratory Results - last 24 hr 06/14/22 16:27: Troponin I < 0.01 06/14/22 19:39: Troponin I < 0.01 06/14/22 21:12: POC Glucose 163 H 06/15/22 00:00: TSH 1.74, Thyroxine (T4) 8.9 06/15/22 05:40: POC Glucose 122 H 06/15/22 06:35: WBC 8.2, RBC 3.96 L, Hgb 11.6 L, Hct 35.3 L, MCV 88.9, MCH 29.3, MCHC 33.0, RDW 12.7, Plt Count 340, MPV 8.2, Neut % (Auto) 67.0, Lymph % (Auto) 22.1, [place] % (Auto) 7.6, Eos % (Auto) 2.7, Baso % (Auto) 0.5, Neut # (Auto) 5.5, Lymph # (Auto) 1.8, [place] # (Auto) 0.6, Eos # (Auto) 0.2, Baso # (Auto) 0.0 06/15/22 06:35: Sodium 142, Potassium 4.1, Chloride 108 H, Carbon Dioxide 29, Anion Gap 9.1, BUN 21 H, Creatinine 1.00, Estimated Creat Clear 50, Estimated GFR 53 L, Est GFR ( Amer) 64, Glucose 122 H, Calcium 9.3, Magnesium 1.6 D 06/15/22 11:16: POC Glucose 121 H I & O for Labs for Last 24 Hours: Intake & Output 06/12/22 06/13/22 06/14/22 06/15/22 23:59 23:59 23:59 23:59 Intake Total 120 / 120 300 / 300 Output Total 0 / 0 0 / 0 Balance 120 / 120 300 / 300 Weight 75.381 kg 76.43 kg Constitutional: Present no acute distress and average body habitus Head: Present atraumatic and normocephalic ENT: Present normal exam Neck: Present normal inspection Respiratory: Present CTA bilaterally and normal respiratory effort; Absent accessory muscle use, rhonchi, wheezes or crackles Cardiac: Present Reg Rate and Rhythm; Absent Systolic Murmur GI: Present soft and normal bowel sounds; Absent distention or tenderness Extremities: Present normal inspection and full ROM Skin: Present intact; Absent erythema Neuro: Present Cranial Nerve 2-12 Intact, Grossly Intact, alert, awake, oriented x 3 and moves all extremities Assessment and Plan *Assessment and plan (1) Unstable angina: Status: Acute Category: Medical Code(s): I20.0 - Unstable angina (2) Type 2 diabetes mellitus without complication: Status: Chronic Qualifiers: Diabetes mellitus fpc insulin use: without fpc use Qualified Code(s): E11.9 - Type 2 diabetes mellitus without complications Category: Medical Code(s): E11.9 - Type 2 diabetes mellitus without complications (3) Mixed hyperlipidemia: Status: Chronic Category: Medical Code(s): E78.2 - Mixed hyperlipidemia (4) Anxiety: Status: Chronic Category: Medical Code(s): F41.9 - Anxiety disorder, unspecified (5) Hypertensive heart disease: Status: Chronic Qualifiers: Heart failure presence: without heart failure Qualified Code(s): I11.9 - Hypertensive heart disease without heart failure Category: Medical Code(s): I11.9 - Hypertensive heart disease without heart failure (6) Cardiac pacemaker in situ: Status: Chronic Category: Medical
--- NOTE | 2022-06-15 17:38 | EXP.DC.SUM ---
General Admission date:: 06/14/22 Discharge date: 06/16/22 HPI HPI HPI: Ms. Villanueva is a pleasant 86-year-old female with significant history of coronary artery disease, peripheral artery disease, status post CABG, pacemaker, stenting, complicated by diabetes and history of smoking (has not smoked in 15 years). She presented to cardiology clinic today as an outpatient with complaint of worsening chest pressure and shortness of breath over the past several weeks. Denies bc syncope, nausea, referred pains. No GI symptoms. Pain relieved by rest, occurs at random. Reports compliance with her medications. Cardiology contacted hospital medicine for admission to proceed with further evaluation. On arrival to the floor, patient appears in her baseline level of health. Able to give clear history of what sounds like unstable angina. No shortness of breath or active chest pain on exam. Hospital Course Hospital Course Hospital Course: 86-year-old female with history of coronary artery disease, CABG, diabetes, pacemaker who presents with worsening chest pain over the past several weeks.? Negative troponins overnight, given complexity of cardiac history and presentation taken for heart cath. Stable during admission..? Problems addressed as follows: Unstable angina CAD History of CABG DIRECTOR BUSINESS-P Hypertension Hyperlipidemia -Admitted for serial troponins and work-up for chest pain. Cardiology was consulted, appreciate their care for this patient. Serial troponins were undetectable. Given extent of cardiac history, taken for left heart cath. No flow-limiting lesions. Recommend continued medical management and evaluating for other etiologies of chest discomfort. Echocardiogram formal results with EF 45% and global hypokinesis. Plan to continue patient's home regimen: Carvedilol 25 mg twice a day, isosorbide mononitrate 30 mg daily Crestor 20 mg nightly for hyperlipidemia, Plavix 75 mg daily, aspirin 81 mg daily. Initiate HCTZ 25 mg daily by mouth for diuretic component/diastolic dysfunction. Patient was on omeprazole, will discontinue and switch to pantoprazole given interactions with Plavix. - No cardiac etiology for chest pain at this time, continue to medically manage. Recommend referral to GI for further work-up such as EGD. Diabetes -Continue extended release metformin 500 mg twice a day. A1c obtained well controlled at 6.4. No indication for insulin at this time. Hypomagnesemia on labs today, replete with 2 g magnesium IV.? Level 1.6 on morning labs Peripheral artery disease: Continue aspirin 81 mg orally and Plavix 75 mg daily as stated above. Mood and memory: Continue home bupropion 150 mg daily and memantine 5 mg twice a day. Medically stable for discharge home. Plan to follow-up with cardiology in 1 to 2 weeks and primary care in the coming weeks for further evaluation of noncardiac chest pain. Exam Data for Last 24 hours Vital signs and Labs for Last 24 Hours: Temp Pulse Resp BP Pulse Ox 98.5 F 60 17 144/59 H 97 06/15/22 10:54 06/15/22 12:00 06/15/22 10:54 06/15/22 10:54 06/15/22 10:54 Laboratory Results - last 24 hr 06/14/22 16:27: Troponin I < 0.01 06/14/22 19:39: Troponin I < 0.01 06/14/22 21:12: POC Glucose 163 H 06/15/22 00:00: TSH 1.74, Thyroxine (T4) 8.9 06/15/22 05:40: POC Glucose 122 H 06/15/22 06:35: WBC 8.2, RBC 3.96 L, Hgb 11.6 L, Hct 35.3 L, MCV 88.9, MCH 29.3, MCHC 33.0, RDW 12.7, Plt Count 340, MPV 8.2, Neut % (Auto) 67.0, Lymph % (Auto) 22.1, [place] % (Auto) 7.6, Eos % (Auto) 2.7, Baso % (Auto) 0.5, Neut # (Auto) 5.5, Lymph # (Auto) 1.8, [place] # (Auto) 0.6, Eos # (Auto) 0.2, Baso # (Auto) 0.0 06/15/22 06:35: Sodium 142, Potassium 4.1, Chloride 108 H, Carbon Dioxide 29, Anion Gap 9.1, BUN 21 H, Creatinine 1.00, Estimated Creat Clear 50, Estimated GFR 53 L, Est GFR ( Amer) 64, Glucose 122 H, Calcium 9.3, Magnesium 1.6 D 06/15/22 11:16: POC Glucose 121 H I & O for Last 24 hours:
[2022-06-15 21:05] LABS: POC Glucose,Bedside 210 (70-110)
[2022-06-16] VITALS: BP 132/57; PULSE 60; RESP 14; TEMP 36.9; O2SAT 94
[2022-06-16 04:00] VITALS: BP 132/60; PULSE 60; PULSE 62; RESP 16; TEMP 36.7; O2SAT 95; BMI 27.3
--- NOTE | 2022-06-16 04:38 | PC.NURSE ---
NO ACUTE CHANGES SINCE PREVIOUS ASSESSMENT. PT HAS RESTED WELL THIS SHIFT. NO C/O PAIN OR SOB. CATH SITE IS C/D/I. VSS. PT HAS STATED THE SHE I EAGER TO GO HOME TODAY. CALL DOCKERY WITHIN REACH.
[2022-06-16 07:08] LABS: POC Glucose,Bedside 120 (70-110)
[2022-06-16 08:00] VITALS: BP 143/63; PULSE 62; PULSE 64; RESP 16; TEMP 36.8; O2SAT 95
[2022-06-16 08:30] LABS: Basophils % 0.5 % (0.1-2.0); Eosinophils # 0.2 K/mm3 (0.0-0.4); Eosinophils % 2.6 % (0.1-12.0); Hematocrit 40.6 % (37.0-47.0); Hemoglobin 13.3 g/dL (12.2-16.2); Lymphocytes # 1.9 K/mm3 (0.7-4.5); Lymphocytes % 24.4 % (10-50); Mean Corpuscular HGB Conc 32.8 g/dL (31.8-35.4); Mean Corpuscular Hemoglobin 29.5 pg (27.0-31.2); Mean Platelet Volume 8.5 fl (7.4-10.4); Monocytes # 0.4 K/mm3 (0.1-1.0); Monocytes % 5.3 % (1.7-9.3); Neutrophils # 5.2 K/mm3 (1.8-7.8); Neutrophils % 67.2 % (37.0-80.0); Platelet Count 337 K/mm3 (142-424); Red Blood Count 4.51 M/mm3 (4.20-5.40); Red Cell Distribution Width 12.8 % (11.5-17.5); White Blood Count 7.7 K/mm3 (4.8-10.8)
[2022-06-16 08:31] LABS: Chloride 104 mmol/L (98-107); Potassium 4.1 mmoL/L (3.5-5.1); Sodium 141 mmol/L (136-145)
[2022-06-16 08:34] LABS: Anion Gap 9.1 mEq/L (5-15); Blood Urea Nitrogen 23 mg/dl (7-17); Calcium 9.4 mg/dl (8.4-10.2); Carbon Dioxide 32 mmol/L (22.0-30.0); Creatinine Clearance Estimated 45 mL/min (50-200); Estimated Glomerular Filt Rate 47 ml/min (>60); GFR (African American) 57 ML/MIN (>60); Glucose 126 mg/dl (74-100)
--- NOTE | 2022-06-16 10:37 | PC.NURSE ---
pt lives 2 hours away and does not want to take her medications before her car ride. she states that she wants to take her medications when she gets home.
--- NOTE | 2022-06-19 13:50 | CARE MANAGER ---
Attempted post-discharge phone call, no answer.
--- NOTE | 2022-06-21 14:06 | CARE MANAGER ---
Spoke with patient for post-discharge phone interview, no issues.
== END 2022-06-16 12:30 | disposition home or self-care (01) ==
PROVIDERS: Internal Medicine; Admitting Provider Internal Medicine Adolescent Medicine; Visit Provider Internal Medicine Adolescent Medicine
DX: I25.110 Atherosclerotic heart disease of native coronary artery with unstable angina pectoris (principal); I25.810 Atherosclerosis of coronary artery bypass graft(s) without angina pectoris; I65.23 Occlusion and stenosis of bilateral carotid arteries; E11.9 Type 2 diabetes mellitus without complications; E78.2 Mixed hyperlipidemia; F41.9 Anxiety disorder, unspecified; Z79.02 Long term (current) use of antithrombotics/antiplatelets; Z79.84 Long term (current) use of oral hypoglycemic drugs; Z95.1 Presence of aortocoronary bypass graft; Z95.0 Presence of cardiac pacemaker; I67.2 Cerebral atherosclerosis; I70.203 Unspecified atherosclerosis of native arteries of extremities, bilateral legs; Z20.822 Contact with and (suspected) exposure to COVID-19
CPT/HCPCS: G0378; 36415; 80048; 80053; 80061; 82962; 83036; 83735; 84436; 84443; 84484; 85025; 93306; 93455; 99152; C1725; C1769; C1894; C9803; J1644; J3475; Q9967; U0003; U0005

== ENCOUNTER 2022-07-05 13:27 | Observation (INO) | payer MEDICARE, BC, SELFPAY ==
--- NOTE | 2022-07-05 13:35 | EXP.HP ---
History of Present Illness *Admission Date: 07/05/22 *Reason for visit:: Low back pain, weakness, transient loss of vision. *History of present illness: Ms. Villanueva is a pleasant 86-year-old female with significant history of coronary artery disease, peripheral artery disease, status post CABG, pacemaker, stenting, complicated by diabetes and history of smoking (has not smoked in 15 years).? She presented to cardiology clinic today as an outpatient for follow-up of recent heart cath 3 weeks ago. On arrival to the the clinic she reported transient loss of vision during her drive from [facility]. Also states that she hurts all over, has just not felt well over the past week. Additionally reported an episode of vaginal bleeding 2 weeks ago with blood clots in her underwear. Given her weakness, transient neurologic symptoms, progressive pain, cardiology consulted medicine for direct admission to work-up acute problems. After arriving to the floor, patient states her pain is actually feeling somewhat better. She denies bc syncope, nausea, vomiting, diarrhea. Has not had any more episodes of vaginal bleeding or blood per rectum per her report since episode 2 weeks ago. Reports compliance with her medication regimen. Initial labs obtained showing KENDRA with creatinine of 1.8. Does not feel dizzy while laying in bed. Denies any numbness or swelling. No shortness of breath, stable on room air. Cardiology at bedside on my evaluation adjusting pacemaker to [address] [facility] Disclaimer: The information contained in this section may have been updated after the patient was seen, as this information can be updated by other users. Medical History CAD (coronary artery disease) Cardiac pacemaker in situ Contact dermatitis Depression Difficulty swallowing DM2 (diabetes mellitus, type 2) HTN (hypertension) Restless legs Unstable angina Surgical History History of cardiac cath History of cholecystectomy Family History Other No significant family history Social History Smoking Status: Never smoker second hand exposure: No alcohol intake: never substance use type: denies use current occupational status: retired Travel in the last 8 weeks: None household members: significant other housing: house number of children: 0 current occupational exposures/hazards: No caffeine: No Review of Systems Review of Systems Review of systems (narrative): Review of system Meds Home Medications and Allergies Home Medications Medication Instructions Recorded Confirmed Type memantine 5 mg tablet 5 mg PO BID memory 05/31/22 07/05/22 History metformin 500 mg tablet,extended 500 mg PO BID Diabetes 05/31/22 07/05/22 History release 24hr isosorbide mononitrate 30 mg 30 mg PO DAILY Chest pain 06/14/22 07/05/22 History tablet,extended release 24 hr rosuvastatin 20 mg tablet 20 mg PO HS Cholesterol 06/14/22 07/05/22 History pantoprazole 40 mg tablet,delayed 40 mg PO DAILYP PRN GERD #30 tabs 06/20/22 07/05/22 Rx release aspirin 81 mg tablet,delayed 81 mg PO DAILY heart health 07/05/22 07/05/22 History release bupropion HCl 150 mg 24 hr tablet, 150 mg PO DAILY mood 07/05/22 07/05/22 History extended release carvedilol 25 mg tablet 25 mg PO BID High blood pressure 07/05/22 07/05/22 History cholecalciferol (vitamin D3) 125 125 mcg PO DAILY supplement 07/05/22 07/05/22 History mcg (5,000 unit) capsule clopidogrel 75 mg tablet (Plavix) 75 mg PO DAILY Blood thinner 07/05/22 07/05/22 History hydrochlorothiazide 25 mg tablet 25 mg PO DAILY Fluid 07/05/22 07/05/22 History New Prescriptions to Start Prescriptions: Allergies Allergy/AdvReac Type Severity Reaction Status Date / Time ropinirole [F
[2022-07-05 13:50] VITALS: BP 138/74; PULSE 60; RESP 18; TEMP 36.9; O2SAT 96; BMI 25.5
--- NOTE | 2022-07-05 13:51 | CA_ITS ---
FINAL REPORT TECHNIQUE: Color Doppler, duplex Doppler and kerr scale sonography of the bilateral neck arterial vasculature was performed. Velocities were measured in the carotid arteries. Stenosis evaluation based on the validated velocity criteria. CLINICAL HISTORY: transient loss of vision,DIZZINESS,PRIOR ENDADECTOMY RIGHT FINDINGS: The peak systolic velocity of the right common carotid artery is 80 cm/s. The peak systolic velocity of the right internal carotid artery is 110 cm/s and end diastolic velocity 20 cm/s. The ICA/CCA ratio is 1.4. A moderate amount of plaque is present. The right external carotid artery is patent. The right vertebral artery is patent with antegrade flow. The peak systolic velocity of the left common carotid artery is 92 cm/s. The peak systolic velocity of the left internal carotid artery is 179 cm/s and end diastolic velocity 22 cm/s. The ICA/CCA ratio is 1.9. A large amount of plaque is present. The left external carotid artery is patent.The left vertebral artery is patent with antegrade flow. IMPRESSION: Less than 50% bilateral carotid stenoses. Bilateral patent vertebral arteries with antegrade flow. If indicated, CTA or MRA could further evaluate. Reviewed, Interpreted and Dictated by Jonas Whitfield III, MD Transcribed by Nadine Jones Authenticated and . [facility]
--- NOTE | 2022-07-05 14:37 | CT_ITS ---
FINAL REPORT TECHNIQUE: Axial images through the abdomen and pelvis were performed without contrast. This study was performed with techniques to keep radiation doses as low as reasonably achievable, (ALARA). Individualized dose reduction techniques using automated exposure control or adjustment of mA and/or kV according to the patient's size were employed. CLINICAL HISTORY: Lwr abdominal pain, pelvic bleeding FINDINGS: ABDOMEN: There is mild scarring in the lung bases. The heart size is normal. Limited images of the liver are unremarkable. Postoperative changes are seen in the upper abdomen and from cholecystectomy. There is diffuse vascular calcification. The spleen is normal. No adrenal mass is identified. The aorta is normal in caliber. There is no significant free fluid or adenopathy. There is no nephrolithiasis. There is no hydronephrosis. PELVIS: The appendix is normal. There is postoperative change in the left inguinal region. The urinary bladder is unremarkable. There is no significant free fluid or adenopathy. IMPRESSION: No acute inflammatory process. Reviewed, Interpreted and Dictated by Jonas Whitfield III, MD Transcribed by Elle Lanza Authenticated and [facility]
--- NOTE | 2022-07-05 14:45 | EXP.CARD.PN ---
Subjective Subjective Date: 07/05/22 Time: 14:45 Principal diagnosis: TIA, vaginal bleeding episode, abdominal/pelvic pain Interval history: Patient was seen in the office earlier today and admitted for further evaluation. Office note with additional information by me as noted below: Patient here for cath fu Not weighed Hurts all over Has had some cp & pressure Denies SOB Dizziness & lightheadedness at anytime Denies Swelling Denies Numbness Denies Fatigue CAD-stable. Hx of CABG. Left heart catheterization with grafts, 06-15-22 showed adequate hybrid coronary artery revascularization with patent HUTTON to LAD, patent SVG to circumflex, patent SVG to RCA. Left main stent is patent into the proximal LAD. HTN-BP elevated. Patient weight up 4 lbs Echo, 06/15/2022, global hypokinesis with EF 45% with biatrial enlargement, mild concentric LVH and mild RV enlargement with normal contractility. Thickened and calcified aortic valve without evidence of aortic stenosis or insufficiency. Mild MR and TR with RVSP of 44 mmHg PAD is stable.Recent stenting of lower extremities at another facility BECCA is present, 50-69% bilateral ICA,?JAN 2020. HLD-LDL goal is < 55. LDL 206, on statin, not @ goal. STEEL TIER-P in place 07/2020 no events, no a-fib. Atrial rate increased to 70 bpm today in hospital. DM2, is present. GERD is present. Having nausea/belching, she did not follow up with Erica for repair of hiatal hernia. She does have a history of esophageal dilatation in August 2020. Notation was made of nonerosive GERD with moderate esophageal dysmotility with cricopharyngeal spasm and intact fundoplication noted. Linear reactive gastropathy with nonspecific duodenitis noted. Having generalized body pain. Would like for her to see pain management. Reports vaginal bleeding since last visit. 1 episode that was unknown to the patient until pointed out by a bystander. No other episodes since then. States she feels like she is going to ,blurred vision, lost vision on way here today, resolved. PLAN: Change base rate of pacemaker to 70 bpm. Offered hospital admission-vaginal bleeding/body pain/she thinks she may have had a stroke Exam Data for Last 24 hours Vital signs and Labs for Last 24 Hours: Temp Pulse Resp BP Pulse Ox 98.4 F 60 18 138/74 96 07/05/22 13:50 07/05/22 13:50 07/05/22 13:50 07/05/22 13:50 07/05/22 13:50 I & O for Last 24 hours: Intake & Output 07/03/22 07/04/22 07/05/22 07/06/22 11:59 11:59 11:59 11:59 Weight 158 lb 8 oz Constitutional Constitutional: no acute distress *Routine Respiratory Exam Respiratory: Present CTA bilaterally *Routine Cardiovascular Exam Cardiovascular: Present RRR *Routine Extremities Exam Extremities: Absent edema *Routine Neurological Exam Neurological: Present alert, oriented X3 and CN II-XII intact Progress Note: A&P Assessment and plan (1) Type 2 diabetes mellitus without complication: Status: Chronic (2) Peripheral arterial occlusive disease: Status: Chronic (3) Anxiety: Status: Chronic (4) Depression: Status: Chronic (5) Post-menopausal bleeding: Status: Acute Assessment and Plan Assessment and Plan for All Diagnoses:: 1. Possible TIA for which CT of the head will be ordered per Dr. Steele. Pacemaker interrogation shows no episodes of atrial fibrillation. Atrial rate increased to [address] Okeefe's request. 2. Suspected vaginal bleeding with abdominal and pelvic discomfort. CT of the abdomen/pelvis will be obtained per Dr. Steele 3. History of GERD with esophageal dilatation in 2020. Patient reports she has an appointment with GI in 2 days. 4. Carotid artery stenosis, carotid ultrasound to be obtained this admission. 5. Hypertension, controlled 6. Peripheral arterial disease with history of stenting, clinically stable. On ASA and plavix. 7. Diabetes mellitus type 2, defer to Dr. Steele 8. CAD with prior bypass. Clinically
[2022-07-05 14:49] LABS: Alanine Aminotransferase 31 U/L (12-78); Albumin Level 4.3 g/dl (3.5-5.0); Albumin/Globulin Ratio 1.3 (1.1-1.8); Alkaline Phosphatase 46 U/L (38-126); Anion Gap 8.5 mEq/L (5-15); Aspartate Amino Transferase 39 U/L (14-36); Bilirubin,Total 0.7 mg/dl (0.2-1.3); Blood Urea Nitrogen 32 mg/dl (7-17); Calcium 9.3 mg/dl (8.4-10.2); Carbon Dioxide 32 mmol/L (22.0-30.0); Chloride 105 mmol/L (98-107); Creatinine Clearance Estimated 26 mL/min (50-200); Estimated Glomerular Filt Rate 27 ml/min (>60); GFR (African American) 32 ML/MIN (>60); Globulin 3.3 g/dL (1.3-3.2); Glucose 178 mg/dl (74-100); Magnesium 1.7 mg/dl (1.6-2.3); Potassium 4.5 mmoL/L (3.5-5.1); Sodium 141 mmol/L (136-145); Total Protein,Serum 7.6 g/dl (6.3-8.2)
[2022-07-05 14:55] LABS: INR 1.09 (0.9-1.1); Prothrombin Time 11.7 seconds (10.1-12.5)
[2022-07-05 14:57] LABS: Basophils # 0.1 K/mm3 (0-0.2); Basophils % 0.7 % (0.1-2.0); Eosinophils # 0.2 K/mm3 (0.0-0.4); Eosinophils % 1.8 % (0.1-12.0); Hematocrit 37.9 % (37.0-47.0); Hemoglobin 12.2 g/dL (12.2-16.2); Lymphocytes # 2.1 K/mm3 (0.7-4.5); Lymphocytes % 24.1 % (10-50); Mean Corpuscular HGB Conc 32.1 g/dL (31.8-35.4); Mean Corpuscular Hemoglobin 28.9 pg (27.0-31.2); Mean Corpuscular Volume 89.9 fl (81-99); Mean Platelet Volume 8.2 fl (7.4-10.4); Monocytes # 0.5 K/mm3 (0.1-1.0); Monocytes % 5.7 % (1.7-9.3); Neutrophils # 5.8 K/mm3 (1.8-7.8); Neutrophils % 67.8 % (37.0-80.0); Platelet Count 353 K/mm3 (142-424); Red Blood Count 4.22 M/mm3 (4.20-5.40); Red Cell Distribution Width 12.9 % (11.5-17.5); White Blood Count 8.6 K/mm3 (4.8-10.8)
[2022-07-05 15:28] LABS: Coronavirus 19, PCR Not Detected (NotDetected); Influenza A, PCR Not Detected (NotDetected); Influenza B, PCR Not Detected (NotDetected)
[2022-07-05 16:06] LABS: Microscopic, Urine URINE MICROSCOPIC (MICROSCOPIC)
[2022-07-05 17:00] LABS: POC Glucose,Bedside 156 (70-110)
--- NOTE | 2022-07-05 17:09 | PC.NURSE ---
PT IS SITTING UP ON THE SOB EATING DINNER AT THIS TIME. ALERT AND ORIENTED X4. PT STATES OVER THE PAST COUPLE OF WEEKS SHE HAS BEEN VERY WEAK AND JUST FEELS SICK. COMPLAINS OF SOME MILD ABDOMINAL PAIN (LOWER QUADS). PT STATES SHE HAD 1 EPISODE OF VAGINAL BLEEDING APPROXIMATELY 1-2 WEEKS AGO. LUNG SOUNDS CLEAR. VSS. WILL CONTINUE TO MONITOR.
--- NOTE | 2022-07-05 18:14 | EXP.GYNCONS ---
History of Present Illness *Admission Date: 07/05/22 *History of present illness: Ms. Villanueva is a pleasant 86-year-old female admitted to [facility] with significant history of coronary artery disease, peripheral artery disease, status post CABG, pacemaker, stenting, complicated by diabetes and history of smoking (has not smoked in 15 years).? She presented to cardiology clinic today as an outpatient with complaint of worsening chest pressure and shortness of breath over the past several weeks.? Denies bc syncope, nausea, referred pains.? No GI symptoms.? Pain relieved by rest, occurs at random.? Reports compliance with her medications.? Cardiology contacted hospital medicine for admission to proceed with further evaluation. Patient reports bright red vaginal bleeding 1-2 weeks ago while she was out shopping. She reports she soaked through her underwear and her pants. She had no pain with the bleeding. When she got home from shopping she changed her clothes and reports a large clot along her underwear. She has had no further bleeding since that episode. Menopause was ~ 45 years ago. She states her last period was age 41. She has never been . [facility] Disclaimer: The information contained in this section may have been updated after the patient was seen, as this information can be updated by other users. Medical History CAD (coronary artery disease) Cardiac pacemaker in situ Contact dermatitis Depression Difficulty swallowing DM2 (diabetes mellitus, type 2) HTN (hypertension) Restless legs Unstable angina Surgical History History of cardiac cath History of cholecystectomy Family History Other No significant family history Social History Smoking Status: Never smoker second hand exposure: No alcohol intake: never substance use type: denies use current occupational status: retired Travel in the last 8 weeks: None household members: significant other housing: house number of children: 0 current occupational exposures/hazards: No caffeine: No Review of Systems Review of Systems Review of systems:: pertinent systems reviewed and negative unless documented below *Genitourinary Genitourinary: Reports abnormal vaginal bleeding Meds Home Medications and Allergies Home Medications Medication Instructions Recorded Confirmed Type memantine 5 mg tablet 5 mg PO BID memory 05/31/22 07/05/22 History metformin 500 mg tablet,extended 500 mg PO BID Diabetes 05/31/22 07/05/22 History release 24hr isosorbide mononitrate 30 mg 30 mg PO DAILY Chest pain 06/14/22 07/05/22 History tablet,extended release 24 hr rosuvastatin 20 mg tablet 20 mg PO HS Cholesterol 06/14/22 07/05/22 History pantoprazole 40 mg tablet,delayed 40 mg PO DAILYP PRN GERD #30 tabs 06/20/22 07/05/22 Rx release aspirin 81 mg tablet,delayed 81 mg PO DAILY heart health 07/05/22 07/05/22 History release bupropion HCl 150 mg 24 hr tablet, 150 mg PO DAILY mood 07/05/22 07/05/22 History extended release carvedilol 25 mg tablet 25 mg PO BID High blood pressure 07/05/22 07/05/22 History cholecalciferol (vitamin D3) 125 125 mcg PO DAILY supplement 07/05/22 07/05/22 History mcg (5,000 unit) capsule clopidogrel 75 mg tablet (Plavix) 75 mg PO DAILY Blood thinner 07/05/22 07/05/22 History hydrochlorothiazide 25 mg tablet 25 mg PO DAILY Fluid 07/05/22 07/05/22 History New Prescriptions to Start Prescriptions: Allergies Allergy/AdvReac Type Severity Reaction Status Date / Time ropinirole [From Requip] Allergy Mild vomiting Verified 07/05/22 11:19 Exam (Inpt) Vital signs and Labs for Last 24 Hours: Temp Pulse Resp BP Pulse Ox 98.4 F 60 18 138/74 96 07/05/22 13:50 07/05/22 13:50 07/05/22 13
[2022-07-05 19:11] LABS: Appearance,Urine CLEAR (Clear); Blood, Urine Negative (Negative); Color,Urine YELLOW (Yellow); Glucose,Urine (UA) Negative (Negative); Ketones,Urine Negative (Negative); Leukocyte Esterase,Urine Negative (Negative); Nitrate,Urine Negative (Negative); PH,Urine 5.5 (5.0-8.5); Protein,Urine 2+ (Negative); Specific Gravity, Urine >= 1.030 (1.005-1.030); Urobilinogen,Urine 0.2 EU/dl (0.2)
[2022-07-05 19:39] LABS: Bacteria,Urine Trace /lpf; Bilirubin,Urine Negative (Negative); Mucus,Urine Trace /lpf; Squamous Epithelial Cell,Urine Occasional #/hpf (0-5)
[2022-07-05 19:41] VITALS: BP 170/72; PULSE 70; RESP 18; TEMP 36.6; O2SAT 100
[2022-07-05 20:50] LABS: POC Glucose,Bedside 140 (70-110)
--- NOTE | 2022-07-06 | US_ITS ---
FINAL REPORT CLINICAL HISTORY: postmenopausal bleeding COMPARISON: CT abdomen and pelvis 07/05/2022 FINDINGS: Transvaginal images of the pelvis were obtained. The uterus measures 5.3 x 2.6 x 3.9 cm. The endometrium measures 7 mm which is abnormally thickened in this postmenopausal patient. The ovaries are not identified. There is no significant free fluid. IMPRESSION: Thickened endometrium as an abnormal but nonspecific finding. No adnexal mass or fluid collection seen. Reviewed, Interpreted and Dictated by Jonas Whitfield III, MD Transcribed by Dominique Stephens Authenticated and [facility]
[2022-07-06 04:00] VITALS: BP 164/81; PULSE 53; RESP 18; TEMP 36.7; O2SAT 97; BMI 25.7
[2022-07-06 06:23] LABS: Basophils % 0.5 % (0.1-2.0); Eosinophils # 0.2 K/mm3 (0.0-0.4); Eosinophils % 2.9 % (0.1-12.0); Hematocrit 35.4 % (37.0-47.0); Hemoglobin 11.4 g/dL (12.2-16.2); Lymphocytes # 1.6 K/mm3 (0.7-4.5); Mean Corpuscular HGB Conc 32.2 g/dL (31.8-35.4); Mean Corpuscular Hemoglobin 28.9 pg (27.0-31.2); Mean Corpuscular Volume 89.8 fl (81-99); Mean Platelet Volume 8.2 fl (7.4-10.4); Monocytes # 0.6 K/mm3 (0.1-1.0); Monocytes % 7.1 % (1.7-9.3); Neutrophils # 5.6 K/mm3 (1.8-7.8); Neutrophils % 69.5 % (37.0-80.0); Platelet Count 316 K/mm3 (142-424); Red Blood Count 3.94 M/mm3 (4.20-5.40); Red Cell Distribution Width 12.6 % (11.5-17.5); White Blood Count 8.1 K/mm3 (4.8-10.8)
[2022-07-06 06:23] LABS: POC Glucose,Bedside 144 (70-110)
[2022-07-06 06:31] LABS: Chloride 107 mmol/L (98-107); Sodium 140 mmol/L (136-145)
[2022-07-06 06:32] LABS: Potassium 3.7 mmoL/L (3.5-5.1)
[2022-07-06 06:34] LABS: Alanine Aminotransferase 26 U/L (12-78); Albumin Level 3.5 g/dl (3.5-5.0); Albumin/Globulin Ratio 1.3 (1.1-1.8); Alkaline Phosphatase 38 U/L (38-126); Anion Gap 7.7 mEq/L (5-15); Aspartate Amino Transferase 37 U/L (14-36); Bilirubin,Total 0.5 mg/dl (0.2-1.3); Blood Urea Nitrogen 26 mg/dl (7-17); Calcium 8.7 mg/dl (8.4-10.2); Carbon Dioxide 29 mmol/L (22.0-30.0); Creatinine Clearance Estimated 39 mL/min (50-200); Estimated Glomerular Filt Rate 43 ml/min (>60); GFR (African American) 52 ML/MIN (>60); Globulin 2.7 g/dL (1.3-3.2); Glucose 158 mg/dl (74-100); Magnesium 1.4 mg/dl (1.6-2.3); Total Protein,Serum 6.2 g/dl (6.3-8.2)
[2022-07-06 07:11] VITALS: BP 166/71; PULSE 74; RESP 18; TEMP 36.7; O2SAT 98
--- NOTE | 2022-07-06 08:43 | EXP.CARD.PN ---
Subjective Subjective Date: 07/06/22 Time: 08:43 Principal diagnosis: TIA, vaginal bleeding episode, abdominal/pelvic pain Interval history: 86-year-old white female in bed in no acute distress. Brief episode of dizziness this a.m. but states overall she is feeling better since being admitted. She does describe a tightness across her abdominal and pelvic area as if she has on a bra that is too tight. Results of CT of the abdomen and pelvis reviewed with her showing no acute abnormality but with significant degenerative disease of her lumbar spine. Pelvic ultrasound is planned for today to evaluate suspected vaginal bleeding. Patient is very anxious about the possibility of cancer. Carotid ultrasound shows 50% or less stenosis of the carotid arteries. Creatinine has improved from 1.8 down to 1.2 after IV hydration. Plan will be to obtain CT of the head for evaluation of possible TIA. Urinalysis showed no evidence of UTI. Exam Data for Last 24 hours Vital signs and Labs for Last 24 Hours: Temp Pulse Resp BP Pulse Ox 98.1 F 74 18 166/71 H 98 07/06/22 07:11 07/06/22 07:11 07/06/22 07:11 07/06/22 07:11 07/06/22 07:11 Laboratory Results - last 24 hr 07/05/22 14:20: WBC 8.6, RBC 4.22, Hgb 12.2, Hct 37.9, MCV 89.9, MCH 28.9, MCHC 32.1, RDW 12.9, Plt Count 353, MPV 8.2, Neut % (Auto) 67.8, Lymph % (Auto) 24.1, [place] % (Auto) 5.7, Eos % (Auto) 1.8, Baso % (Auto) 0.7, Neut # (Auto) 5.8, Lymph # (Auto) 2.1, [place] # (Auto) 0.5, Eos # (Auto) 0.2, Baso # (Auto) 0.1 07/05/22 14:20: Sodium 141, Potassium 4.5, Chloride 105, Carbon Dioxide 32 H, Anion Gap 8.5, BUN 32 H, Creatinine 1.80 H, Estimated Creat Clear 26, Estimated GFR 27 L, Est GFR ( Amer) 32 L, Glucose 178 H, Calcium 9.3, Magnesium 1.7, Total Bilirubin 0.7, AST 39 H, ALT 31, Alkaline Phosphatase 46, Total Protein 7.6, Albumin 4.3, Globulin 3.3 H, Albumin/Globulin Ratio 1.3 07/05/22 14:20: Blood Type A Positive, Antibody Screen Negative 07/05/22 14:20: PT 11.7, INR 1.09 07/05/22 15:00: SARS-CoV-2 (PCR) Not detected, Influenza A Untype (PCR) Not detected, Influenza Type B (PCR) Not detected 07/05/22 16:00: Urine Color Yellow, Urine Appearance Clear, Urine pH 5.5, Ur Specific [place] >= 1.030, Urine Protein 2+, Urine Glucose (UA) Negative, Urine Ketones Negative, Urine Blood Negative, Urine Nitrate Negative, Urine Bilirubin Negative, Urine Urobilinogen 0.2, Ur Leukocyte Esterase Negative, Urine RBC None, Urine WBC 3-5, Ur Squamous Epith Cells Occasional, Urine Bacteria Trace, Hyaline Casts 5-10, Urine Mucus Trace 07/05/22 16:53: POC Glucose 156 H 07/05/22 20:43: POC Glucose 140 H 07/06/22 05:41: WBC 8.1, RBC 3.94 L, Hgb 11.4 L, Hct 35.4 L, MCV 89.8, MCH 28.9, MCHC 32.2, RDW 12.6, Plt Count 316, MPV 8.2, Neut % (Auto) 69.5, Lymph % (Auto) 20.0, [place] % (Auto) 7.1, Eos % (Auto) 2.9, Baso % (Auto) 0.5, Neut # (Auto) 5.6, Lymph # (Auto) 1.6, [place] # (Auto) 0.6, Eos # (Auto) 0.2, Baso # (Auto) 0.0 07/06/22 05:41: Sodium 140, Potassium 3.7, Chloride 107, Carbon Dioxide 29, Anion Gap 7.7, BUN 26 H, Creatinine 1.20 H D, Estimated Creat Clear 39, Estimated GFR 43 L, Est GFR ( Amer) 52 L D, Glucose 158 H, Calcium 8.7, Magnesium 1.4 L D, Total Bilirubin 0.5, AST 37 H, ALT 26, Alkaline Phosphatase 38, Total Protein 6.2 L, Albumin 3.5 D, Globulin 2.7, Albumin/Globulin Ratio 1.3 07/06/22 06:11: POC Glucose 144 H I & O for Last 24 hours: Intake & Output 07/03/22 07/04/22 07/05/22 07/06/22 11:59 11:59 11:59 11:59 Intake Total 1080 / 1080 Output Total 0 / 0 Balance 1080 / 1080 Weight 160 lb 2 oz Constitutional Constitutional: no acute distress *Routine Respiratory Exam Respiratory: Present CTA bilaterally *Routine Cardiovascular Exam Cardiovascular: Present RRR *Routine Extremities Exam Extremities: Absent cyanosis, clubbing or edema *Routine Neurological Exam Neurological: Present alert, oriented X3 and CN II-XII intact Progress Note: A&P Assessment and plan (1) KENDRA (acute kid
--- NOTE | 2022-07-06 08:54 | EXP.ACUTE.PN ---
Subjective *Date: 07/06/22 *Time: 08:54 Medical Exam Vital signs and Labs for Last 24 Hours: Vital Signs Temp Pulse Resp BP Pulse Ox 07/06/22 07:11 98.1 F 74 18 166/71 H 98 07/06/22 04:00 98.0 F 53 L 18 164/81 H 97 07/05/22 19:41 97.9 F 70 18 170/72 H 100 07/05/22 13:50 98.4 F 60 18 138/74 96 Intake and Output 07/05/22 07/06/22 07/06/22 23:59 07:59 15:59 Intake Total 360 / 360 720 / 720 Output Total 0 / 0 0 / 0 Balance 360 / 360 720 / 720 Intake: Intake, Oral Amount 360 / 360 720 / 720 Output: Output, Urine Amount 0 / 0 0 / 0 Other: Number of Unmeasured Voids 1 0 Weight 72.631 kg Patient Weight 07/06/22 23:59 Weight 72.631 kg Laboratory Results - last 24 hr 07/05/22 14:20: WBC 8.6, RBC 4.22, Hgb 12.2, Hct 37.9, MCV 89.9, MCH 28.9, MCHC 32.1, RDW 12.9, Plt Count 353, MPV 8.2, Neut % (Auto) 67.8, Lymph % (Auto) 24.1, [place] % (Auto) 5.7, Eos % (Auto) 1.8, Baso % (Auto) 0.7, Neut # (Auto) 5.8, Lymph # (Auto) 2.1, [place] # (Auto) 0.5, Eos # (Auto) 0.2, Baso # (Auto) 0.1 07/05/22 14:20: Sodium 141, Potassium 4.5, Chloride 105, Carbon Dioxide 32 H, Anion Gap 8.5, BUN 32 H, Creatinine 1.80 H, Estimated Creat Clear 26, Estimated GFR 27 L, Est GFR ( Amer) 32 L, Glucose 178 H, Calcium 9.3, Magnesium 1.7, Total Bilirubin 0.7, AST 39 H, ALT 31, Alkaline Phosphatase 46, Total Protein 7.6, Albumin 4.3, Globulin 3.3 H, Albumin/Globulin Ratio 1.3 07/05/22 14:20: Blood Type A Positive, Antibody Screen Negative 07/05/22 14:20: PT 11.7, INR 1.09 07/05/22 15:00: SARS-CoV-2 (PCR) Not detected, Influenza A Untype (PCR) Not detected, Influenza Type B (PCR) Not detected 07/05/22 16:00: Urine Color Yellow, Urine Appearance Clear, Urine pH 5.5, Ur Specific [place] >= 1.030, Urine Protein 2+, Urine Glucose (UA) Negative, Urine Ketones Negative, Urine Blood Negative, Urine Nitrate Negative, Urine Bilirubin Negative, Urine Urobilinogen 0.2, Ur Leukocyte Esterase Negative, Urine RBC None, Urine WBC 3-5, Ur Squamous Epith Cells Occasional, Urine Bacteria Trace, Hyaline Casts 5-10, Urine Mucus Trace 07/05/22 16:53: POC Glucose 156 H 07/05/22 20:43: POC Glucose 140 H 07/06/22 05:41: WBC 8.1, RBC 3.94 L, Hgb 11.4 L, Hct 35.4 L, MCV 89.8, MCH 28.9, MCHC 32.2, RDW 12.6, Plt Count 316, MPV 8.2, Neut % (Auto) 69.5, Lymph % (Auto) 20.0, [place] % (Auto) 7.1, Eos % (Auto) 2.9, Baso % (Auto) 0.5, Neut # (Auto) 5.6, Lymph # (Auto) 1.6, [place] # (Auto) 0.6, Eos # (Auto) 0.2, Baso # (Auto) 0.0 07/06/22 05:41: Sodium 140, Potassium 3.7, Chloride 107, Carbon Dioxide 29, Anion Gap 7.7, BUN 26 H, Creatinine 1.20 H D, Estimated Creat Clear 39, Estimated GFR 43 L, Est GFR ( Amer) 52 L D, Glucose 158 H, Calcium 8.7, Magnesium 1.4 L D, Total Bilirubin 0.5, AST 37 H, ALT 26, Alkaline Phosphatase 38, Total Protein 6.2 L, Albumin 3.5 D, Globulin 2.7, Albumin/Globulin Ratio 1.3 07/06/22 06:11: POC Glucose 144 H I & O for Labs for Last 24 Hours: Intake & Output 07/03/22 07/04/22 07/05/22 07/06/22 23:59 23:59 23:59 23:59 Intake Total 360 / 360 720 / 720 Output Total 0 / 0 0 / 0 Balance 360 / 360 720 / 720 Weight 71.894 kg 72.631 kg Assessment and Plan *Assessment and plan (1) KENDRA (acute kidney injury): Status: Acute Category: Medical Code(s): N17.9 - Acute kidney failure, unspecified (2) Post-menopausal bleeding: Status: Acute Category: Medical Code(s): N95.0 - Postmenopausal bleeding (3) DDD (degenerative disc disease), lumbar: Status: Acute Category: Medical Code(s): M51.36 - Other intervertebral disc degeneration, lumbar region (4) Transient visual loss: Status: Acute Category: Medical Code(s): H53.129 - Transient visual loss, unspecified eye (5) Dizziness: Status: Acute Category: Medical Code(s): R42 - Dizziness and giddiness (6) Type 2 diabetes mellitus without complication: Status: Chronic
--- NOTE | 2022-07-06 09:40 | EXP.DC.SUM ---
General Admission date:: 07/05/22 Discharge date: 07/06/22 HPI HPI HPI: Ms. Villanueva is a pleasant 86-year-old female with significant history of coronary artery disease, peripheral artery disease, status post CABG, pacemaker, stenting, complicated by diabetes and history of smoking (has not smoked in 15 years).? She presented to cardiology clinic today as an outpatient for follow-up of recent heart cath 3 weeks ago. On arrival to the the clinic she reported transient loss of vision during her drive from [facility]. Also states that she hurts all over, has just not felt well over the past week. Additionally reported an episode of vaginal bleeding 2 weeks ago with blood clots in her underwear. Given her weakness, transient neurologic symptoms, progressive pain, cardiology consulted medicine for direct admission to work-up acute problems. After arriving to the floor, patient states her pain is actually feeling somewhat better. She denies bc syncope, nausea, vomiting, diarrhea. Has not had any more episodes of vaginal bleeding or blood per rectum per her report since episode 2 weeks ago. Reports compliance with her medication regimen. Initial labs obtained showing KENDRA with creatinine of 1.8. Does not feel dizzy while laying in bed. Denies any numbness or swelling. No shortness of breath, stable on room air. Cardiology at bedside on my evaluation adjusting pacemaker to 70 bpm. 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 Also reports episode of vaginal bleeding 2 weeks ago.? Medicine consulted for direct admission, decision made to admit for observation and further work-up of acute issues.? Problems addressed as follows: KENDRA -Present on admission with creatinine of 1.8.? Improved to baseline with IV fluid resuscitation. 1.2 on day of discharge. Recommend holding HCTZ at discharge and will have repeat labs and further management as an outpatient with follow-up with cardiology in a week and a half. CAD History of CABG CORRESPONDENCE TRANSCRIBER-P Hypertension Hyperlipidemia -Patient admitted to observation.? Discussed case with cardiology.? Work-up for causes of dizziness and transient loss of vision.? Pacemaker interrogated, rate increased to 70 bpm. Patient seemed to tolerate well. Continued her home regimen of carvedilol 25 mg twice a day and Crestor nightly. We will hold Imdur at this time given her dizziness. Cholesterol well controlled with LDL of 56 on last admission 3 weeks ago. Bilateral carotid duplex obtained showing less than 50% stenosis bilaterally. No further neurologic signs during admission. No CT of the head performed as patient had no neurologic symptoms and KENDRA/dehydration as above was determined to be likely culprit for her dizziness and vision change during trip to [facility] from [facility]. Encourage patient to drink adequate water daily. Carotid artery stenosis Possible TIA Transient loss of vision -Carotid duplex obtained as stated above. Less than 50% stenosis bilaterally. No indication for CT of the head after improvement in her kidney function with fluid resuscitation. Patient had no focal neurologic deficits. Dizziness and transient loss of vision determined to be secondary to dehydration. -Resume aspirin and Plavix on day of discharge. Lower abdominal pain, low back pain Suspected vaginal bleeding -Patient reports single episode 2 weeks ago of blood clot and blood in panties, soaking through her pants. Gynecology was consulted. Transvaginal ultrasound obtained, formal read pending on day of discharge. By personal review, does not have significantly enlarged endometrial stripe and no apparent fibroids. Plan for close outpatient follow
--- NOTE | 2022-07-06 11:15 | EXP.ACUTE.PN ---
Subjective *Date: 07/06/22 *Time: 11:15 Interval history: Patient resting comfortably this morning. No vaginal bleeding since episode 1-2 weeks ago. No complaints or concerns today. She is feeling well. Medical Exam Vital signs and Labs for Last 24 Hours: Vital Signs Temp Pulse Resp BP Pulse Ox 07/06/22 07:11 98.1 F 74 18 166/71 H 98 07/06/22 04:00 98.0 F 53 L 18 164/81 H 97 07/05/22 19:41 97.9 F 70 18 170/72 H 100 07/05/22 13:50 98.4 F 60 18 138/74 96 Intake and Output 07/05/22 07/06/22 07/06/22 23:59 07:59 15:59 Intake Total 360 / 360 720 / 3268 2548 / 3268 Output Total 0 / 0 0 / 0 Balance 360 / 360 720 / 3268 2548 / 3268 Intake: Intake, Oral Amount 360 / 360 720 / 720 Intake, Total IV Amount 2548 / 2548 Ringers Solution,Lactated 1,000 2548 / 2548 ml @ 150 mls/hr IV .[id number] [facility] Rx#:[id number] Output: Output, Urine Amount 0 / 0 0 / 0 Other: Number of Unmeasured Voids 1 0 Weight 160 lb 2 oz Patient Weight 07/06/22 23:59 Weight 160 lb 2 oz Laboratory Results - last 24 hr 07/05/22 14:20: WBC 8.6, RBC 4.22, Hgb 12.2, Hct 37.9, MCV 89.9, MCH 28.9, MCHC 32.1, RDW 12.9, Plt Count 353, MPV 8.2, Neut % (Auto) 67.8, Lymph % (Auto) 24.1, [place] % (Auto) 5.7, Eos % (Auto) 1.8, Baso % (Auto) 0.7, Neut # (Auto) 5.8, Lymph # (Auto) 2.1, [place] # (Auto) 0.5, Eos # (Auto) 0.2, Baso # (Auto) 0.1 07/05/22 14:20: Sodium 141, Potassium 4.5, Chloride 105, Carbon Dioxide 32 H, Anion Gap 8.5, BUN 32 H, Creatinine 1.80 H, Estimated Creat Clear 26, Estimated GFR 27 L, Est GFR ( Amer) 32 L, Glucose 178 H, Calcium 9.3, Magnesium 1.7, Total Bilirubin 0.7, AST 39 H, ALT 31, Alkaline Phosphatase 46, Total Protein 7.6, Albumin 4.3, Globulin 3.3 H, Albumin/Globulin Ratio 1.3 07/05/22 14:20: Blood Type A Positive, Antibody Screen Negative 07/05/22 14:20: PT 11.7, INR 1.09 07/05/22 15:00: SARS-CoV-2 (PCR) Not detected, Influenza A Untype (PCR) Not detected, Influenza Type B (PCR) Not detected 07/05/22 16:00: Urine Color Yellow, Urine Appearance Clear, Urine pH 5.5, Ur Specific [place] >= 1.030, Urine Protein 2+, Urine Glucose (UA) Negative, Urine Ketones Negative, Urine Blood Negative, Urine Nitrate Negative, Urine Bilirubin Negative, Urine Urobilinogen 0.2, Ur Leukocyte Esterase Negative, Urine RBC None, Urine WBC 3-5, Ur Squamous Epith Cells Occasional, Urine Bacteria Trace, Hyaline Casts 5-10, Urine Mucus Trace 07/05/22 16:53: POC Glucose 156 H 07/05/22 20:43: POC Glucose 140 H 07/06/22 05:41: WBC 8.1, RBC 3.94 L, Hgb 11.4 L, Hct 35.4 L, MCV 89.8, MCH 28.9, MCHC 32.2, RDW 12.6, Plt Count 316, MPV 8.2, Neut % (Auto) 69.5, Lymph % (Auto) 20.0, [place] % (Auto) 7.1, Eos % (Auto) 2.9, Baso % (Auto) 0.5, Neut # (Auto) 5.6, Lymph # (Auto) 1.6, [place] # (Auto) 0.6, Eos # (Auto) 0.2, Baso # (Auto) 0.0 07/06/22 05:41: Sodium 140, Potassium 3.7, Chloride 107, Carbon Dioxide 29, Anion Gap 7.7, BUN 26 H, Creatinine 1.20 H D, Estimated Creat Clear 39, Estimated GFR 43 L, Est GFR ( Amer) 52 L D, Glucose 158 H, Calcium 8.7, Magnesium 1.4 L D, Total Bilirubin 0.5, AST 37 H, ALT 26, Alkaline Phosphatase 38, Total Protein 6.2 L, Albumin 3.5 D, Globulin 2.7, Albumin/Globulin Ratio 1.3 07/06/22 06:11: POC Glucose 144 H I & O for Labs for Last 24 Hours: Intake & Output 07/03/22 07/04/22 07/05/22 07/06/22 23:59 23:59 23:59 23:59 Intake Total 360 / 360 3268 / 3268 Output Total 0 / 0 0 / 0 Balance 360 / 360 3268 / 3268 Weight 158 lb 8 oz 160 lb 2 oz Head: Present atraumatic and normocephalic ENT: Present normal exam Neck: Present full ROM Respiratory: Present CTA bilaterally and normal respiratory effort Cardiac: Present Reg Rate and Rhythm GI: Present soft; Absent distention or tenderness Rectal (female): Present deferred (female): Present deferred Extremities: Present full ROM Neuro: Present alert, awake and oriented x 3 Assessment and Plan *Assessment and plan (1) Post-menopausal
[2022-07-06 13:13] VITALS: BMI 25.7
--- NOTE | 2022-07-06 13:18 | EXP.PAIN.OV ---
HPI Data of Consult Patient: new to practice Consult date: 07/06/22 Requesting Physician: Darron Steele MD Primary Care Provider: Nadia Bellamy DO Consult Narrative Reason for consult: Low back pain, leg pain History of present illness: Ms. Villanueva is a 86 year old female who presents today for consultation from Dr. Matos's office. She rates her pain a 5 out of 10. Patient states she has had low back pain with leg pain for years. Patient denies any specific history of trauma or injury. Patient states that it just started and progressively worsened over time. Patient does state that she has pain in around her hips and groin area with occasional pains in her shoulders. Patient does describe her back pain as sharp that is worse with increased activity or prolonged activity and notices more stiffness in the mornings. Patient does state that her legs is a constant jerking, moving sensation that is worse at night. Patient states that she frequently has to get up and move around to get any relief. Patient does state this interferes with her ability to sleep. Patient states she also notices her pain worse in times of decreased movement such as long car rides. Patient states that they are about 2-1/2 hours away in [facility] and that frequently she will have her stop so she can get out and walk to help relieve some of her pain. Patient states she does use multiple back braces and shoulder braces to help relieve some of her pain symptoms. Patient denies any improvement with heat or ice. Patient states she does use topical such as Biofreeze on her knees however has not tried it on her back. Patient states that she has had physical therapy in the past however she could not tolerate it due to significant history of cardiac issues. Patient states at 1 point they did at home therapy and she saw no improvement with this. Patient states that years ago she did go to a chiropractor twice a week and did get some improvement. Patient also states that in the past she has been to a specialist in [facility] who said that she was a nonsurgical candidate for any back surgery. Patient does see Dr. Okeefe for her cardiac history. Patient states she will use extra strength Tylenol for some improvement. Patient does state that she was made inpatient at this visit due to an episode of excessive bleeding with clots and abdominal pain. Patient states that she has recently saw Dr. Okeefe who told her he was running additional test. Patient denies any injection history. Patient is on Plavix 75 mg daily. CC: Darron Steele MD [facility] Disclaimer: The information contained in this section may have been updated after the patient was seen, as this information can be updated by other users. Medical History CAD (coronary artery disease) Cardiac pacemaker in situ Contact dermatitis Depression Difficulty swallowing DM2 (diabetes mellitus, type 2) HTN (hypertension) Restless legs Unstable angina Surgical History History of cardiac cath History of cholecystectomy Family History Other No significant family history Social History Smoking Status: Never smoker second hand exposure: No alcohol intake: never substance use type: denies use current occupational status: retired Travel in the last 8 weeks: None household members: significant other housing: house number of children: 0 current occupational exposures/hazards: No caffeine: No Review of Systems Review of Systems Review of systems:: pertinent systems reviewed and negative unless documented below Review of systems (narrative): Review of Systems: General: No recent weight changes, no fever, no sleep disturbances Respiratory: No cough
[2022-07-06 13:19] VITALS: BP 139/92; PULSE 74; RESP 18
--- NOTE | 2022-07-10 12:56 | CARE MANAGER ---
Contacted patient related to hospital discharge. Patient states she has one medication she was unable to get due to the sullivan but she already spoke with someone who ordered something different for her. She is aware of her follow up appointments and denies any questions or concerns.
== END 2022-07-06 14:37 | disposition home or self-care (01) ==
PROVIDERS: Admitting Provider Internal Medicine Adolescent Medicine; PCP Family Medicine; Visit Provider Internal Medicine Adolescent Medicine
DX: E11.9 Type 2 diabetes mellitus without complications (principal); I77.1 Stricture of artery; N95.0 Postmenopausal bleeding; N17.9 Acute kidney failure, unspecified; M51.36 Other intervertebral disc degeneration, lumbar region; M54.16 Radiculopathy, lumbar region; I65.23 Occlusion and stenosis of bilateral carotid arteries; Z95.0 Presence of cardiac pacemaker; Z95.1 Presence of aortocoronary bypass graft; Z95.5 Presence of coronary angioplasty implant and graft; I25.110 Atherosclerotic heart disease of native coronary artery with unstable angina pectoris; G45.8 Other transient cerebral ischemic attacks and related syndromes; Z79.84 Long term (current) use of oral hypoglycemic drugs; I70.203 Unspecified atherosclerosis of native arteries of extremities, bilateral legs; Z95.820 Peripheral vascular angioplasty status with implants and grafts; R42 Dizziness and giddiness; M54.50 Low back pain, unspecified; R10.9 Unspecified abdominal pain; G25.81 Restless legs syndrome; H53.123 Transient visual loss, bilateral; Z87.891 Personal history of nicotine dependence; Z20.822 Contact with and (suspected) exposure to COVID-19
CPT/HCPCS: G0378; G0379; 36415; 74176; 76830; 80053; 81001; 82962; 83735; 85025; 85610; 86850; 87086; 93880; C9803; J3475; U0003; U0005

== ENCOUNTER → 2022-07-17 08:01 | Outpatient (CLI) | payer MEDICARE, BC, SELFPAY ==
--- NOTE | 2022-07-17 08:21 | FL_ITS ---
FINAL REPORT CLINICAL HISTORY: gerd 1:58 fluoro time FINDINGS: ESOPHAGRAM HISTORY: GERD. PROCEDURE: The patient ingested barium. Effervescent crystals were also administered. Spot and overhead films were obtained. FINDINGS: There is marked esophageal dysmotility. There was penetration into the airway noted with swallowing but no definite aspiration. There is relative narrowing of the distal esophagus. A 13 mm barium tablet is delayed but does pass through this area. Peristalsis is normal. IMPRESSION: 1. Penetration of contrast in the airway without aspiration. 2. Relative narrowing of the distal esophagus. A barium tablet passes through this after slight delay. Consider endoscopic correlation. 3. Marked esophageal dysmotility. Films reviewed , interpreted and dictated by Dr. Whitfield Transcribed by Vignesh Machado PA-C. Reviewed, Interpreted and Dictated by Jonas Whitfield III, MD Transcribed by REJI Humphries Authenticated and [facility]
== END ==
PROVIDERS: PCP Family Medicine; Visit Provider Internal Medicine Adolescent Medicine
DX: K21.9 Gastro-esophageal reflux disease without esophagitis (principal)
CPT/HCPCS: 74220

== ENCOUNTER → 2022-07-20 13:00 | Outpatient (POV) | payer MEDICARE, BC, SELFPAY ==
--- NOTE | 2022-07-20 13:29 | EXP.PAIN.SOA ---
[facility] Pain Management SOAP Note Subjective:: Patient is a pleasant 86-year-old female who presents today for 2-week follow-up. We are currently treating the patient for degenerative disc disease of lumbar spine with lumbar radiculopathy symptoms, low back pain, bilateral leg pain, bilateral hip pain. Today she rates her pain a 0 out of 10. She denies any new trauma or injury. Patient denies any change location or type of pain she experiences. She states that overall she is doing better today however with most days she has significant low back pain that radiates into her bilateral hips and groin down her legs. Patient does state this affects her ability to perform activities of daily living such as cooking and cleaning. Patient states that she frequently cannot only iron 2 to 3 pieces of clothing before having to sit down and take a break. She also states that she frequently mops while sitting in a chair due to her significant pain. She does states she uses a back brace daily and only takes it off on occasions and at bedtime. She states this does provide significant relief. She also states that she has been feeling better at night. At our last visit we did prescribe her Mirapex 0.5 mg at bedtime and gave a 2-week supply of this. She states that she continues to have leg pain however when she feels better at night is when she will do a lot more of her activities. During today's visit she does state that her hip pain is more bothersome than her back. Patient denies any recent imaging. She has been to see a specialist in [place] who stated she was a nonsurgical candidate for any back surgery. She does have a significant heart history and sees Dr. Okeefe's office for her care. Patient does take Plavix on a daily basis. She is not on any scheduled medications. Patient has not gone for her lumbar imaging at this time. Her Britton is [id number]. Its been reviewed and appropriate. Review of Systems: General: No recent weight changes, no fever, no sleep disturbances Respiratory: No cough, no shortness of air, no recurring pulmonary infections Cardiovascular/peripheral vascular: No chest pain, no palpitations, no edema, no shortness of breath Gastrointestinal: No new onset incontinence, normal bowel movements reported Genitourinary: No new onset incontinence Musculoskeletal: Bilateral hip pain, groin pain, low back pain Psychiatric: [Normal mood/affect] Neurological: [Denies weakness in extremities], [denies balance issues] Objective:: Physical Exam: General: Alert and oriented x3, no acute distress, pleasant and cooperative Lungs: Respirations even and unlabored, symmetrical chest expansion Eyes: PERRL Musculoskeletal: Flexion and extension of lumbar [spine] somewhat guarded secondary to pain, [antalgic gait noted] Neurological: Speech clear, no gross sensory deficit Assessment:: Degenerative disc disease of lumbar spine with lumbar radiculopathy symptoms, low back pain, bilateral leg pain, bilateral hip pain Plan:: Patient is experiencing more difficulty in her hip/groin at this time. Patient did have a limited range of motion of her lumbar spine during today's visit. I have recommended that she may benefit from intra-articular hip injections. Risk and benefits were discussed with the patient and she would like to proceed forward with this plan of care. We will also resubmit for the MRI of her lumbar spine without contrast. We will also do a refill on her Mirapex 0.5 mg at bedtime and provide a 1 month supply of this medication. Patient will be scheduled for bilateral intra-articular hip injections. Patient has been instructed to contact the clinic with any concerns before the next appointment. Dr. Basilio has reviewed this note and agrees with this plan of care. This note was dictated using voice recognition software and make contain errors or omissions. [facility] Disclaimer: The information contained in this section may have been updated after the patie
[2022-07-20 14:55] VITALS: BP 145/72; PULSE 72; RESP 18; O2SAT 97; BMI 24.8
== END | disposition home or self-care (01) ==
PROVIDERS: PCP Family Medicine; Visit Provider Nurse Practitioner Family
DX: M51.16 Intervertebral disc disorders with radiculopathy, lumbar region (principal); M79.604 Pain in right leg; M79.605 Pain in left leg; M25.551 Pain in right hip; M25.552 Pain in left hip
CPT/HCPCS: 99212; G0463

== ENCOUNTER → 2022-07-20 15:33 | Outpatient (CLI) | payer MEDICARE, BC, SELFPAY ==
[2022-07-20 16:28] LABS: Basophils # 0.1 K/mm3 (0-0.2); Basophils % 0.7 % (0.1-2.0); Eosinophils # 0.2 K/mm3 (0.0-0.4); Eosinophils % 2.7 % (0.1-12.0); Hematocrit 38.2 % (37.0-47.0); Hemoglobin 12.6 g/dL (12.2-16.2); Lymphocytes # 2.2 K/mm3 (0.7-4.5); Mean Corpuscular HGB Conc 32.9 g/dL (31.8-35.4); Mean Corpuscular Hemoglobin 29.1 pg (27.0-31.2); Mean Corpuscular Volume 88.6 fl (81-99); Mean Platelet Volume 8.1 fl (7.4-10.4); Monocytes # 0.4 K/mm3 (0.1-1.0); Monocytes % 6.3 % (1.7-9.3); Neutrophils # 3.9 K/mm3 (1.8-7.8); Neutrophils % 57.3 % (37.0-80.0); Platelet Count 395 K/mm3 (142-424); Red Blood Count 4.32 M/mm3 (4.20-5.40); Red Cell Distribution Width 12.9 % (11.5-17.5); White Blood Count 6.8 K/mm3 (4.8-10.8)
[2022-07-20 16:38] LABS: Chloride 102 mmol/L (98-107); Potassium 3.8 mmoL/L (3.5-5.1); Sodium 141 mmol/L (136-145)
[2022-07-20 16:41] LABS: Alanine Aminotransferase 15 U/L (12-78); Albumin Level 4.2 g/dl (3.5-5.0); Albumin/Globulin Ratio 1.4 (1.1-1.8); Alkaline Phosphatase 51 U/L (38-126); Anion Gap 11.8 mEq/L (5-15); Aspartate Amino Transferase 22 U/L (14-36); Bilirubin,Total 0.6 mg/dl (0.2-1.3); Blood Urea Nitrogen 31 mg/dl (7-17); Carbon Dioxide 31 mmol/L (22.0-30.0); Estimated Glomerular Filt Rate 43 ml/min (>60); GFR (African American) 52 ML/MIN (>60); Total Protein,Serum 7.2 g/dl (6.3-8.2)
[2022-07-20 16:42] LABS: Calcium 9.2 mg/dl (8.4-10.2); Glucose 141 mg/dl (74-100)
== END ==
PROVIDERS: Visit Provider Obstetrics & Gynecology
DX: N93.9 Abnormal uterine and vaginal bleeding, unspecified (principal); N95.0 Postmenopausal bleeding
CPT/HCPCS: 36415; 80053; 85025; 99212; G0463

== ENCOUNTER 2022-08-08 11:27 | Day surgery (SDC) | payer MEDICARE, BC, SELFPAY ==
--- NOTE | 2022-08-08 11:44 | CT_ITS ---
FINAL REPORT TECHNIQUE: Thin section axial images were obtained through the lumbar spine without contrast. Sagittal and coronal reconstruction images were obtained from the axial data. Exam was performed using dose reduction techniques. CLINICAL HISTORY: LBP FINDINGS: There is a chronic L3 compression fracture with 50% loss of vertebral height centrally. No additional fractures identified. Vertebral body height is otherwise preserved. There is no malalignment of the lumbar spine. There is multilevel degenerative disc disease. Paraspinal soft tissues are within normal limits. There is no paraspinal mass or fluid collection. L1-2: A mild disc osteophyte complex is present with mild central canal stenosis. L2-3: A broad-based disc osteophyte complex is present. There is mild central canal stenosis and, left greater than right, neural foraminal narrowing. L3-4: An annular disc bulge is present with moderate central canal stenosis and mild bilateral neural foraminal narrowing. L4-5: A broad-based disc osteophyte complex is present. There is moderate central canal stenosis. There is moderate right and mild left neural foraminal narrowing. L5-S1: No central canal stenosis or neural foraminal narrowing. IMPRESSION: 1. Chronic L3 compression fracture. 2. Multilevel degenerative disc disease. Reviewed, Interpreted and Dictated by Maren Villalba MD Transcribed by Nadine Jones Authenticated and [facility]
[2022-08-08 13:10] VITALS: BP 176/72; PULSE 68; RESP 18; TEMP 36.6; O2SAT 92; BMI 25.2
[2022-08-08 13:12] VITALS: BP 185/85; PULSE 69; RESP 18; O2SAT 97
--- NOTE | 2022-08-08 13:17 | P.PCN_ITS ---
Procedure Date: 08/08/22 Time: 13:00 Anesthesiologist:: David Mcqueen CRNA Complications:: None Pre-procedure Diagnosis:: Bilateral hip osteoarthritis Post-procedure Diagnosis:: Same Indications for Procedure:: Very pleasant 86-year-old female comes our clinic today for her initial bilatera l intra-articular hip injections. Patient has been told she has arthritis in bilateral hips. However, no surgery recommended at this time. Patient has difficulty ambulating due to pain in the bilateral anterior hip area. Procedure Details:: Details of the procedure explained to the patient. The patient taken the procedure room placed in the supine position. The area over the bilateral anterior hips was cleaned using chlorhexidine as a cleansing solution. Using fluoroscopy guidance a 3 and half inch 22-gauge spinal needle was used to access the right hip joint. After negative aspiration 3 cc of 1% lidocaine +3 cc of 0.25% Marcaine and 40 mg of Depo-Medrol was injected. The same procedure was carried out in the same fashion in the left hip joint. Patient tolerated procedure without difficulty. There are no complications Plan and Disposition:: Patient was discharged without incident.
[2022-08-08 13:20] VITALS: BP 171/76; PULSE 68; RESP 18; O2SAT 93
== END 2022-08-08 13:20 | disposition home or self-care (01) ==
PROVIDERS: Visit Provider Nurse Practitioner Family
DX: M16.0 Bilateral primary osteoarthritis of hip (principal)
CPT/HCPCS: 20610; 72131

== ENCOUNTER → 2022-08-14 06:09 | Day surgery (SDC) | payer MEDICARE, BC, SELFPAY ==
[2022-08-09 13:03] VITALS: BMI 24.7
[2022-08-14 06:32] VITALS: BP 193/92; PULSE 64; RESP 18; TEMP 36.5; O2SAT 94
--- NOTE | 2022-08-14 07:15 | SUR.PREOP ---
While checking pt in for procedure pt states She stopped all medications 5 days ago except her blood thinner which she took yesterday morning. Dr Wellington notified by Harsh Emanuel RN that pt took blood thinner yesterday morning orders received to cancel case and have office reschedule pt. Pt notified that md wanted to reschedule her case due to blood thinner not stopped. Pt states maybe it wasn't her blood thinner she took. That she took whatever pill they told her to take . PT states if MD can't do procedure today she is not having it done . Harsh Emanuel RN called md back reported pt unsure if it was her blood thinner she took or not. Pt stated she was not going to have procedure done if rescheduled. Dr Wellington still wants to cancel case due to pt not being 100% sure which medication she took. Dr Wellington states office will call and reschedule pt. r/v
== END ==
PROVIDERS: Visit Provider Obstetrics & Gynecology
DX: Z53.09 Procedure and treatment not carried out because of other contraindication (principal); Z91.199 Patient's noncompliance with other medical treatment and regimen due to unspecified reason; N95.0 Postmenopausal bleeding; R93.89 Abnormal findings on diagnostic imaging of other specified body structures

== ENCOUNTER → 2022-08-21 11:25 | Outpatient (POV) | payer MEDICARE, BC, SELFPAY ==
--- NOTE | 2022-08-21 11:32 | EXP.PAIN.SOA ---
[facility] Pain Management SOAP Note Subjective:: Patient is a pleasant 86-year-old female who presents today for follow-up of bilateral hip intra-articular injections on 08/08/2022. We are currently treating the patient for degenerative disc disease of lumbar spine with lumbar radiculopathy symptoms, low back pain, bilateral leg pain, bilateral hip pain.? Today she rates her pain a 6 out of 10.? She denies any new trauma or injury.? She states she did have significant relief following this injection however she is experiencing worsening back pain. She states her back pain is constant and describes it as a aching sensation that is worse with increased activity. Patient states it does interfere with her ability to perform activities of daily living such as cooking and cleaning and that she can even shower without significant pain. She does continue to use a back brace daily and only takes it off on occasions and at bedtime.? She states this does provide significant relief.? She also states that she has been feeling better at night following the addition of medication for restless leg. She is currently prescribed Mirapex 0.5 mg at bedtime.? Patient denies any side effects from this medication. She is not on any scheduled medications.?She has been to see a specialist in [place] who stated she was a nonsurgical candidate for any back surgery.? She does have a significant heart history and sees Dr. Okeefe's office for her care.? Patient does take Plavix on a daily basis. She states she is scheduled for surgery on the by the director college here at [facility]. She states she is currently off of her Plavix due to this upcoming procedure.?her Britton is [id number].? Its been reviewed and appropriate. Review of Systems: General: No recent weight changes, no fever, no sleep disturbances Respiratory: No cough, no shortness of air, no recurring pulmonary infections Cardiovascular/peripheral vascular: No chest pain, no palpitations, no edema, no shortness of breath Gastrointestinal: No new onset incontinence, normal bowel movements reported Genitourinary: No new onset incontinence Musculoskeletal: Low back pain Psychiatric: [Normal mood/affect] Neurological: [Denies weakness in extremities], [denies balance issues] Objective:: Physical Exam: General: Alert and oriented x3, no acute distress, pleasant and cooperative Lungs: Respirations even and unlabored, symmetrical chest expansion Eyes: PERRL Musculoskeletal: Flexion and extension of lumbar [spine] somewhat guarded secondary to pain, [antalgic gait noted] Neurological: Speech clear, no gross sensory deficit FINAL REPORT TECHNIQUE: Thin section axial images were obtained through the lumbar spine without contrast.? Sagittal and coronal reconstruction images were obtained from the axial data.? Exam was performed using dose reduction techniques. CLINICAL HISTORY: LBP FINDINGS: There is a chronic L3 compression fracture with 50% loss of vertebral height centrally.? No additional fractures identified. Vertebral body height is otherwise preserved.? There is no malalignment of the lumbar spine.? There is multilevel degenerative disc disease.? ? Paraspinal soft tissues are within normal limits. There is no paraspinal mass or fluid collection. L1-2:? A mild disc osteophyte complex is present with mild central canal stenosis.? ? L2-3:? A broad-based disc osteophyte complex is present.? There is mild central canal stenosis and, left greater than right, neural foraminal narrowing.? L3-4: An annular disc bulge is present with moderate central canal stenosis and mild bilateral neural foraminal narrowing.? ? L4-5: A broad-based disc osteophyte complex is present.? There is moderate central canal stenosis.? There is moderate right and mild left neural foraminal narrowing.? L5-S1:? No central canal stenosis or neural foraminal narrowing. IMPRESSION: 1. Chronic L3 compression fracture.? ? 2. Multilevel degenerative
[2022-08-21 12:17] VITALS: BP 125/69; PULSE 70; RESP 18; O2SAT 97; BMI 26.3
== END | disposition home or self-care (01) ==
PROVIDERS: Visit Provider Nurse Practitioner Family
DX: M51.16 Intervertebral disc disorders with radiculopathy, lumbar region (principal); M79.604 Pain in right leg; M79.605 Pain in left leg; M25.551 Pain in right hip; M25.552 Pain in left hip
CPT/HCPCS: 99212; G0463

== ENCOUNTER 2022-08-30 08:24 | Day surgery (SDC) | payer MEDICARE, BC, SELFPAY ==
[2022-08-28 11:05] VITALS: BMI 24.4
[2022-08-30 09:15] VITALS: BP 180/84; PULSE 71; RESP 18; TEMP 36.7; O2SAT 96
--- NOTE | 2022-08-30 09:32 | P.PN_ITS ---
[facility] Disclaimer: The information contained in this section may have been updated after the patient was seen, as this information can be updated by other users. Medical History Allergies CAD (coronary artery disease) Cardiac pacemaker in situ Constipation Contact dermatitis Depression Difficulty swallowing DM2 (diabetes mellitus, type 2) History of back pain History of pacemaker History of transient ischemic attack (TIA) HTN (hypertension) Osteoarthritis Post-menopausal bleeding Restless legs Thickened endometrium Unstable angina Surgical History History of cardiac cath History of cholecystectomy History of coronary artery stent placement History of open heart surgery Family History Other Family history of cancer Family history of myocardial infarction Social History Smoking Status: Former smoker how long ago did patient quit smokin second hand exposure: No alcohol intake: never substance use type: denies use current occupational status: retired Travel in the last 8 weeks: None household members: significant other housing: house number of children: 0 current occupational exposures/hazards: No caffeine: Yes [facility] Anesthesia Checklist Patient Identification Patient Identification: Arm Band and Verbal (Name & ) Structural Data Admitted From: Home Planned Operative Procedure/s: Hyst/D & C Consent for Planned Operative Procedure(s) Verified: Yes NPO Status Verified Time NPO: 00:00 Additional verifications Anesthesia Reactions: No Hx Blood Transfusions: No Blood Transfusion Reaction: No Airway Assessment C-Spine Mobility Assessed: Yes TMJ Mobility Assessed: Yes Dentition: Dentures-good fit Neurological Assessment Level of Consciousness: Awake Hx Seizures: No Numbness or tingling in extremities: No Anesthesia Plan Anesthesia Risk discussed: Yes Anesthesia Plan: Verified ASA Class: III Anesthesia Type: General
[2022-08-30] MEDS: ACETAMINOPHEN 500MG TAB 1000 MG PO (09:36)
[2022-08-30] MEDS: LACTATED RINGERS 1000ML 1,000 ML 25 ML IV (09:36)
[2022-08-30 09:40] LABS: Basophils # 0.1 K/mm3 (0-0.2); Basophils % 0.8 % (0.1-2.0); Eosinophils # 0.1 K/mm3 (0.0-0.4); Eosinophils % 1.7 % (0.1-12.0); Hematocrit 41.8 % (37.0-47.0); Hemoglobin 13.1 g/dL (12.2-16.2); Lymphocytes % 27.1 % (10-50); Mean Corpuscular HGB Conc 31.5 g/dL (31.8-35.4); Mean Corpuscular Hemoglobin 28.5 pg (27.0-31.2); Mean Corpuscular Volume 90.7 fl (81-99); Mean Platelet Volume 8.1 fl (7.4-10.4); Monocytes # 0.5 K/mm3 (0.1-1.0); Monocytes % 7.1 % (1.7-9.3); Neutrophils # 4.7 K/mm3 (1.8-7.8); Neutrophils % 63.2 % (37.0-80.0); Platelet Count 365 K/mm3 (142-424); Red Blood Count 4.61 M/mm3 (4.20-5.40); Red Cell Distribution Width 13.2 % (11.5-17.5); White Blood Count 7.4 K/mm3 (4.8-10.8)
[2022-08-30 09:44] LABS: Chloride 103 mmol/L (98-107); Potassium 5.1 mmoL/L (3.5-5.1); Sodium 140 mmol/L (136-145)
[2022-08-30 09:46] LABS: Blood Urea Nitrogen 27 mg/dl (7-17); Creatinine Clearance Estimated 41 mL/min (50-200); Estimated Glomerular Filt Rate 47 ml/min (>60); GFR (African American) 57 ML/MIN (>60)
[2022-08-30 09:46] LABS: POC Glucose,Bedside 142 (70-110)
[2022-08-30 09:47] LABS: Alanine Aminotransferase 15 U/L (12-78); Albumin Level 3.9 g/dl (3.5-5.0); Albumin/Globulin Ratio 1.1 (1.1-1.8); Alkaline Phosphatase 54 U/L (38-126); Anion Gap 9.1 mEq/L (5-15); Aspartate Amino Transferase 22 U/L (14-36); Bilirubin,Total 0.6 mg/dl (0.2-1.3); Calcium 9.6 mg/dl (8.4-10.2); Carbon Dioxide 33 mmol/L (22.0-30.0); Globulin 3.6 g/dL (1.3-3.2); Glucose 146 mg/dl (74-100); Total Protein,Serum 7.5 g/dl (6.3-8.2)
--- NOTE | 2022-08-30 10:51 | EXP.HP ---
History of Present Illness *History of present illness: Ms Luciana Villanueva is a very pleasant 86 yo female who presents to [facility] for scheduled procedure. She had an episode of postmenopausal bleeding in early June. She reports bright red vaginal bleeding while she was out shopping. She?soaked through her underwear and her pants. She had no pain with the bleeding. When she got home from shopping she changed her clothes and reported a large clot along her underwear. She has had no further bleeding since that episode. Menopause was ~ 45 years ago. She states her last period was age 41. She has never been . Pelvic ultrasound 07/05/22 demonstrated endometrial thickness of 7 mm.? [facility] Disclaimer: The information contained in this section may have been updated after the patient was seen, as this information can be updated by other users. Medical History (Updated 08/30/22 @ 10:53 by Velma Wellington DO) Allergies CAD (coronary artery disease) Cardiac pacemaker in situ Constipation Contact dermatitis Depression Difficulty swallowing DM2 (diabetes mellitus, type 2) History of back pain History of pacemaker History of transient ischemic attack (TIA) HTN (hypertension) Osteoarthritis Post-menopausal bleeding Restless legs Thickened endometrium Unstable angina Surgical History History of cardiac cath History of cholecystectomy History of coronary artery stent placement History of open heart surgery Family History Other Family history of cancer Family history of myocardial infarction Social History Smoking Status: Former smoker how long ago did patient quit smokin second hand exposure: No alcohol intake: never substance use type: denies use current occupational status: retired Travel in the last 8 weeks: None household members: significant other housing: house number of children: 0 current occupational exposures/hazards: No caffeine: Yes Review of Systems Review of Systems Review of systems:: pertinent systems reviewed and negative unless documented below Meds Home Medications and Allergies Home Medications Medication Instructions Recorded Confirmed Type metformin 500 mg tablet,extended 500 mg PO BID Diabetes 05/31/22 08/30/22 History release 24hr rosuvastatin 20 mg tablet 20 mg PO HS Cholesterol 06/14/22 08/30/22 History pantoprazole 40 mg tablet,delayed 40 mg PO DAILYP PRN GERD #30 tabs 06/20/22 08/30/22 Rx release aspirin 81 mg tablet,delayed 81 mg PO DAILY heart health 07/05/22 08/30/22 History release carvedilol 25 mg tablet 25 mg PO BID High blood pressure 07/05/22 08/30/22 History cholecalciferol (vitamin D3) 125 125 mcg PO DAILY supplement 07/05/22 08/30/22 History mcg (5,000 unit) capsule clopidogrel 75 mg tablet (Plavix) 75 mg PO DAILY Blood thinner 07/05/22 08/30/22 History acetaminophen 300 mg-codeine 30 mg 1 tab PO TID PRN Pain 07/17/22 08/30/22 History tablet hydrochlorothiazide 25 mg tablet 25 mg PO DAILY Fluid 07/17/22 08/30/22 History sennosides 8.6 mg-docusate sodium 1 tab PO DAILY BOWELS 07/20/22 08/30/22 History 50 mg tablet (Stool Softener-Stimulant Laxative) pramipexole 0.5 mg tablet 0.5 mg PO HS . #30 tabs 08/21/22 08/30/22 Rx New Prescriptions to Start Prescriptions: Allergies Allergy/AdvReac Type Severity Reaction Status Date / Time ropinirole [From Requip] Allergy Mild vomiting Verified 08/30/22 09:09 Exam Data for Last 24 hours Vital signs and Labs for Last 24 Hours: Temp Pulse Resp BP Pulse Ox 98.0 F 71 18 180/84 H 96 08/30/22 09:15 08/30/22 09:15 08/30/22 09:15 08/30/22 09:15 08/30/22 09:15 Laboratory Results - last 24 hr 08/30/22 09:24: POC Glucose 142 H 08/30/22 09:30: WBC 7.4, RBC 4.61, Hgb 13.1, Hct 41.8, MCV 90.7, MCH 28.5, MCHC 31.5 L, RDW 13.2, Plt Count 365, MPV 8.1, Neut % (Auto) 63.2, Lymph % (Auto) 27.1, [place] % (Auto) 7.1, Eos % (Auto) 1.7, Baso % (Auto) 0.8, Neut # (Auto) 4.7, Lymph # (Auto) 2.0, [place] # (Auto) 0.5, Eos # (Auto) 0.1, Baso # (Auto) 0.1 08/30/22 09:30: Sodium 140, Potassium 5.1, Chloride 103, Carbon Dioxide 33 H, Anion Gap 9.1, BUN 27 H, Creatinine 1.10 H, Estimated Creat Clear 41, Estimated GFR 47 L, Est GFR ( Amer) 57 L, Glucose 146 H, Calcium 9.6, Total Bilirubin 0.6, AST 22, ALT 15, Alkaline Phosphatase 54, Total Protein 7.5, Albumin 3.9, Globulin 3.6 H, Albumin/Globulin Ratio 1.1 I & O for Last 24 hours: Intake & Output 08/27/22 08/28/22 08/29/22 08/30/22 23:59 23:59 23:59 23:59 Weight 151 lb 15.998 oz Constitutional Constitutional: no acute distress *Routine HEENT Exam Head: Present normocephalic and atraumatic Eye: Absent conjunctivae pink ENT: Present mucous membranes moist *Routine Neck Exam Neck: Present full ROM *Routine Respiratory Exam Respiratory: Present CTA bilaterally and normal respiratory effort *Routine Cardiovascular Exam Cardiovascular: Present RRR *Routine Abdominal Exam Abdominal: Present soft and normoactive bowel sounds; Absent tenderness or distended *Routine Rectal Exam Rectal:: deferred *Routine Genitalia Exam Genitalia:: deferred *Routine Extremities Exam Extremities: Present full ROM; Absent edema or calf tenderness *Routine Neurological Exam Neurological: Present alert, oriented X3 and moving all extremities Routine Psychiatric Exam Psychiatric: Present normal affect and cooperative Assessment and Plan *Assessment and plan (1) Post-menopausal bleeding: Status: Acute Category: Medical Code(s): N95.0 - Postmenopausal bleeding (2) Thickened endometrium: Status: Acute Category: Medical Code(s): R93.89 - Abnormal findings on diagnostic imaging of other specified body structures Plan Reviewed procedure. Reviewed risks, benefits, alternatives, expectations and possible complications of surgery. Risks include but are not limited to bleeding; infection; uterine perforation; damage to adjacent structures (possibly requiring further intervention and/or longer hospital stay); VTE; risks with anesthesia; and risk of . All questions addressed and answered. Patient voiced understanding of risks and possible complications. Patient desires to proceed with surgery. Consent form signed. Proceed with scheduled hysteroscopy, D&C, possible Myosure
--- NOTE | 2022-08-30 11:50 | EXP.OP.NOTE ---
Date of procedure: 08/30/22 Pre-op Diagnosis:: 1. Postmenopausal bleeding 2. Thickened endometrium Post-op Diagnosis:: 1. Postmenopausal bleeding 2. Thickened endometrium Procedure performed:: Hysteroscopy, D&C with Myosure Surgeon:: Velma Wellington DO Blueprint Blocker(s):: N/a TINSEL MACHINE OPERATOR:: Rusty Ortiz Anesthesia: MAC Estimated blood loss (mL): 0 Clinical Note:: Ms Luciana Villanueva is a very pleasant 86 yo female who presents to [facility] for scheduled procedure. She had an episode of postmenopausal bleeding in early June. She reports bright red vaginal bleeding while she was out shopping. She?soaked through her underwear and her pants. She had no pain with the bleeding. When she got home from shopping she changed her clothes and reported a large clot along her underwear. She has had no further bleeding since that episode. Menopause was ~ 45 years ago. She states her last period was age 41. She has never been . Pelvic ultrasound 07/05/22 demonstrated endometrial thickness of 7 mm.? Operative findings:: 1. On bimanual exam, uterus normal size and shape, midline, slightly retroverted 2. On hysteroscopic exam, bilateral tubal ostia easily visualized. Fluffy endometrial tissue with atrophic appearing tissue also noted Operative note:: Risks, benefits and alternatives were discussed with the patient. Risks include but are not limited to bleeding, infection, uterine perforation and VTE. Patient voiced understanding and agreed to proceed. She was wheeled back to the operating room and placed under MAC without difficulty. She was placed in dorsal lithotomy position and prepped and draped in the normal sterile fashion. Straight catheter was used to drain the bladder. A bimanual exam was performed. A weighted Auvard was placed in the vaginal vault. Single tooth tenaculum was placed on anterior lip of the cervix. Uterus sounded to 7. Sequential Man dilators were used to dilate the cervical os. Hysteroscope was tested inserted through the cervix without difficulty. Endometrial cavity was evaluated. See findings above. Pictures were taken. Myosure was inserted through the Hysteroscope. Myosure curettage was performed under direct visualization per protocol. The endometrial cavity was curetted with a systematic [id number] movement of the curette so that all possible endometrium was sampled. Endometrial curettings will be sent to pathology for review.?In addition, a medium size sharp curette was inserted through the cervix into the uterine cavity and endometrium was curetted with a systematic back and forth movement in a 360 degree manner. All endometrial curettings will be sent to pathology for review. Instruments were removed from the vagina. Tenaculum site was noted to oozing. 2-0 Chromic suture was used to suture ligate the bleeding. Hemostasis was noted. Patient was awaken from anesthesia without difficulty. She was transported to recovery room in stable condition. Patient will be discharged home when awake and ambulating. She was given postop instructions as well as instructions to follow-up in the office in 2 weeks at which time pathology will be reviewed. Condition: stable Disposition: same day Specimens:: Endometrial curettings Complications:: None
[2022-08-30 11:56] VITALS: BP 124/56; PULSE 71; RESP 14; TEMP 37.1; O2SAT 93
[2022-08-30 12:06] VITALS: BP 113/61; PULSE 69; RESP 18; O2SAT 94
[2022-08-30 12:16] VITALS: BP 129/61; PULSE 69; RESP 16; O2SAT 94
[2022-08-30 12:26] VITALS: BP 124/68; PULSE 69; RESP 17; TEMP 36.9; O2SAT 95
[2022-08-30 13:54] VITALS: TEMP 43
== END 2022-08-30 12:30 | disposition home or self-care (01) ==
PROVIDERS: PCP Family Medicine; Visit Provider Obstetrics & Gynecology
PROC: (CPT 58558; principal; 2022-08-30 11:00)
DX: N95.0 Postmenopausal bleeding (principal); R93.89 Abnormal findings on diagnostic imaging of other specified body structures; Z79.899 Other long term (current) drug therapy; E11.9 Type 2 diabetes mellitus without complications
CPT/HCPCS: 58558; 80053; 82962; 85025; 88305

== ENCOUNTER 2022-09-12 10:02 | Day surgery (SDC) | payer MEDICARE, SELFPAY ==
[2022-09-12 11:30] VITALS: BP 164/94; PULSE 93; RESP 18; TEMP 36.4; O2SAT 99; BMI 24.3
[2022-09-12 11:32] VITALS: BP 127/76; PULSE 70; RESP 18; O2SAT 97
[2022-09-12 11:36] VITALS: BP 178/59; PULSE 70; RESP 18; O2SAT 99
--- NOTE | 2022-09-12 11:36 | P.PCN_ITS ---
Procedure Date: 09/12/22 Time: 11:30 Anesthesiologist:: David Mcqueen CRNA Complications:: None Pre-procedure Diagnosis:: Degenerative disc lumbar spine multilevels. Lumbar radiculopathy. Post-procedure Diagnosis:: Same Indications for Procedure:: Is a very pleasant 86-year-old female comes our clinic today for lumbar epidural steroid injection at the L2-3 level. Patient complains of low back pain as well as bilateral hip and leg radicular symptoms at times. Patient rates her pain to day 10/21. Procedure Details:: Procedure: Lumbar epidural steroid injection under fluoroscopy Informed consent was obtained and the risks and benefits of the procedure were explained to the patient. The patient was taken to the procedure room and noninvasive monitors placed, including noninvasive blood pressure cuff and pulse oximeter. The back was viewed using C-arm Fluoroscopy and prepped using Chloraprep as a cleansing solution and the L2-3 interspace was palpated. Skin and subcutaneous tissues were anesthetized using lidocaine 1.5% and a 25-gauge needle. After this, an 18-gauge Touhy epidural needle was placed into the L2-3 interspace and advanced using fluoroscopic guidance and loss of resistance to air until the epidural space was encountered. After confirmation of needle placement in the epidural space, with dye, a solution containing normal saline, 3 mL and Depo-Medrol 80 mg were incrementally injected into the lumbar epidural space. The patient tolerated the procedure well with no complications. The patient was observed in the Pain Clinic and then discharged home neurologically intact. Plan and Disposition:: Patient was discharged without incident.
[2022-09-12 11:39] VITALS: BP 127/76; PULSE 70; RESP 18; O2SAT 97
== END 2022-09-12 11:36 | disposition home or self-care (01) ==
PROVIDERS: PCP Family Medicine; Visit Provider Nurse Anesthetist, Certified Registered
DX: M51.16 Intervertebral disc disorders with radiculopathy, lumbar region (principal)
CPT/HCPCS: 62323; J1040

== ENCOUNTER → 2022-09-27 12:56 | Outpatient (POV) | payer MEDICARE, SELFPAY ==
[2022-09-27 13:11] VITALS: BP 139/50; PULSE 71; RESP 20; BMI 27.8
--- NOTE | 2022-09-27 13:29 | EXP.PAIN.SOA ---
[facility] Pain Management SOAP Note Subjective:: Patient is a pleasant 86-year-old female who presents today for follow-up of lumbar epidural steroid injection at L2-L3 on 09/12/2022. We are currently treating the patient for degenerative disc disease of lumbar spine with lumbar radiculopathy symptoms, low back pain, bilateral leg pain, bilateral hip pain. Today she states that she has had significant improvement following this injection of at least 80% and states it continues to provide additional relief. Patient does state that her pain today is 8 out of 10 however this is more related to her drive over here and that she has been doing significant gardening on a daily basis. She states she has been able to trim bushes and plant shin. She states that her pain will go up however that she will go in for a break for about an hour and her pain is relieved and she can go back out and work some more. Patient states this has been the best she has felt for some time. Patient does see Dr. Okeefe's office for her cardiac history and is on Plavix daily. Patient did just have gynecology surgery at [facility] and did well with this. Patient is not on any scheduled medications. We have been prescribing her pramipexole 0.5 mg at bedtime and at our last visit we sent in a 3-month supply. Patient states that she had some difficulty getting this medication and states that she did recently just order picker/assembler 1 but she is unsure if this was it. Her Britton is [phone]. Its been reviewed and appropriate. Review of Systems: General: No recent weight changes, no fever, no sleep disturbances Respiratory: No cough, no shortness of air, no recurring pulmonary infections Cardiovascular/peripheral vascular: No chest pain, no palpitations, no edema, no shortness of breath Gastrointestinal: No new onset incontinence, normal bowel movements reported Genitourinary: No new onset incontinence Musculoskeletal: Low back pain Psychiatric: [Normal mood/affect] Neurological: [Denies weakness in extremities], [denies balance issues] Objective:: Physical Exam: General: Alert and oriented x3, no acute distress, pleasant and cooperative Lungs: Respirations even and unlabored, symmetrical chest expansion Eyes: PERRL Musculoskeletal: Flexion and extension of lumbar [spine] somewhat guarded secondary to pain, [antalgic gait noted] Neurological: Speech clear, no gross sensory deficit Assessment:: Degenerative disc disease of lumbar spine with lumbar radiculopathy symptoms, low back pain, bilateral leg pain, bilateral hip pain Plan:: Patient is doing well from her lumbar epidural steroid injection and does not require any additional injective therapy at this time. I will review her previous medication prescription that it was sent in and will send in a refill on the pramipexole 0.5 mg at bedtime with a 1 month supply. Patient will return to clinic in 1 month for reevaluation of symptoms, medication refill and follow-up. Patient has been instructed to contact the clinic with any concerns before the next appointment. Dr. Basilio has reviewed this note and agrees with this plan of care. This note was dictated using voice recognition software and make contain errors or omissions. [facility] Disclaimer: The information contained in this section may have been updated after the patient was seen, as this information can be updated by other users. Medical History Allergies CAD (coronary artery disease) Cardiac pacemaker in situ Constipation Contact dermatitis Depression Difficulty swallowing DM2 (diabetes mellitus, type 2) History of back pain History of pacemaker History of transient ischemic attack (TIA) HTN (hypertension) Osteoarthritis Post-menopausal bleeding Restless legs Thickened endometrium Unstable angina Surgical History History of cardiac cath History of cholecystectomy Histor
== END | disposition home or self-care (01) ==
PROVIDERS: Visit Provider Nurse Practitioner Family
DX: M51.16 Intervertebral disc disorders with radiculopathy, lumbar region (principal); M79.604 Pain in right leg; M79.605 Pain in left leg; M25.551 Pain in right hip; M25.552 Pain in left hip
CPT/HCPCS: 99212; G0463

== ENCOUNTER → 2022-10-30 12:47 | Outpatient (POV) | payer MEDICARE, SELFPAY ==
--- NOTE | 2022-10-30 13:13 | EXP.PAIN.SOA ---
[facility] Disclaimer: The information contained in this section may have been updated after the patient was seen, as this information can be updated by other users. Medical History Allergies CAD (coronary artery disease) Cardiac pacemaker in situ Constipation Contact dermatitis Depression Difficulty swallowing DM2 (diabetes mellitus, type 2) History of back pain History of pacemaker History of transient ischemic attack (TIA) HTN (hypertension) Osteoarthritis Post-menopausal bleeding Restless legs Thickened endometrium Unstable angina Surgical History History of cardiac cath History of cholecystectomy History of coronary artery stent placement x5 History of open heart surgery Family History Other Family history of cancer Family history of myocardial infarction Social History Smoking Status: Former smoker how long ago did patient quit smokin second hand exposure: No alcohol intake: never substance use type: denies use current occupational status: retired Travel in the last 8 weeks: None housing: house number of children: 0 current occupational exposures/hazards: No caffeine: No
== END ==
PROVIDERS: PCP Family Medicine; Visit Provider Nurse Practitioner Family
DX: Z53.9 Procedure and treatment not carried out, unspecified reason (principal)
CPT/HCPCS: 99212

== ENCOUNTER 2023-09-04 12:55 | Observation (INO) | payer MEDICARE, BC, SELFPAY ==
--- NOTE | 2023-09-04 13:10 | P.HP_ITS ---
History of Present Illness *Admission Date: 09/04/23 *Reason for visit:: Weakness *History of present illness: Ms. Villanueva is an 87-year-old female who presented to cardiology clinic as an outpatient with complaint of fatigue and weakness. She has a history significant for CAD, peripheral artery disease, CABG, pacemaker, stenting, diabetes, chronic low back pain with lumbar radiculopathy/degenerative disc disease. Initial presentation to cardiology clinic she is complaining of weakness in her legs. Has multiple complaints including transient loss of vision during her drive from [place] with her significant other (she does not drive). Is having significant pain from her back down her legs causing weakness, worse in her bilateral hips. Having some incontinence, wears pads daily. Denies any bc syncope. Stumbled coming into the hospital this morning and needed help. Only uses her cane when she is out but uses a walker at home. In cardiology clinic, there was concern for her worsening weakness and possible UTI. Medicine consulted for admission and further workup given patient's underlying medical complexity and diffuse complaints. Medicine agreed to admit for further management. On arrival to the floor she is hemodynamically stable. Alert and oriented x 3. On room air. Afebrile. Denies any nausea, vomiting, chest pain. Of note: Had a similar episode a year ago with transient changes in vision and general weakness and at that time had complaint of passing blood clots in her underwear. She had an KENDRA at that time with her dizziness. [facility] Disclaimer: The information contained in this section may have been updated after the patient was seen, as this information can be updated by other users. Medical History Constipation History of transient ischemic attack (TIA) History of back pain Osteoarthritis Allergies History of pacemaker Thickened endometrium Post-menopausal bleeding CAD (coronary artery disease) DM2 (diabetes mellitus, type 2) HTN (hypertension) Unstable angina Difficulty swallowing Cardiac pacemaker in situ Depression Contact dermatitis Restless legs Surgical History Hx of CABG History of open heart surgery History of coronary artery stent placement History of cardiac cath History of cholecystectomy Family History Other Family history of cancer Family history of myocardial infarction Social History Smoking Status: Former smoker tobacco type: cigarettes packs per day: 1 how long ago did patient quit smokin second hand exposure: No alcohol intake: never substance use type: denies use current occupational status: retired Travel in the last 8 weeks: None housing: house number of children: 0 current occupational exposures/hazards: No caffeine: Yes Review of Systems Review of Systems Review of systems (narrative): 14 point review of systems performed, pertinent positives and negatives as per HPI Meds Home Medications and Allergies Home Medications Medication Instructions Recorded Confirmed Type aspirin 81 mg tablet,delayed 81 mg PO DAILY 07/05/22 09/04/23 History release clopidogrel 75 mg tablet (Plavix) 75 mg PO DAILY 07/05/22 09/04/23 History metformin 500 mg tablet 500 mg PO BID 05/28/23 09/04/23 History carvedilol 25 mg tablet 25 mg PO BID 09/04/23 09/04/23 History donepezil 5 mg tablet 5 mg PO HS 09/04/23 09/04/23 History pantoprazole 40 mg tablet,delayed 40 mg PO HS 09/04/23 09/04/23 History release rosuvastatin 20 mg tablet 20 mg PO HS 09/04/23 09/04/23 History New Prescriptions to Start Prescriptions: Allergies Allergy/AdvReac Type Severity Reaction Status Date / Time ropinirole [From Requip] Allergy Mild vomiting Verified 09/04/23 11:19 Exam Constitutional Constitutional: no acute distress, average body habitus and chronically ill appearing *Routine HEENT Exam Head: Present normocephalic Eye: Present EOMI and PERRL ENT: Present mucous membranes moist *Routine Neck Exam Neck: Present supple; Absent lymphadenopathy Routine Chest/Breast/Axilla Exam Chest wall: Absent tenderness Comments: Well-healed sternotomy scar. *Routine Respiratory Exam Respiratory: Present CTA bilaterally and normal respiratory effort; Absent accessory muscle use, rhonchi, wheezes or crackles *Routine Cardiovascular Exam Cardiovascular: Present RRR *Routine Abdominal Exam Abdominal: Present soft, normoactive bowel sounds and tenderness (TTP in lower abdomen.); Absent rebound or guarding *Routine Rectal Exam Rectal:: deferred *Routine Genitalia Exam Genitalia:: deferred *Routine Extremities Exam Extremities: Absent cyanosis, clubbing or edema *Routine Skin Exam Skin: Present warm; Absent wounds or rash *Routine Neurological Exam Neurological: Present alert, oriented X3, CN II-XII intact and moving all extremities; Absent altered mental status or facial asymmetry Routine Psychiatric Exam Psychiatric: Present anxious Assessment and Plan *Assessment and plan (1) Lower extremity weakness: Status: Acute Category: Medical Code(s): R29.898 - Other symptoms and signs involving the musculoskeletal system (2) Transient visual loss: Status: Resolved Category: Medical Code(s): H53.129 - Transient visual loss, unspecified eye (3) Dizziness: Status: Resolved Category: Medical Code(s): R42 - Dizziness and giddiness (4) Type 2 diabetes mellitus without complication: Status: Chronic Qualifiers: Diabetes mellitus long term acute care registered nurse insulin use: without long term acute care registered nurse use Qualified Code(s): E11.9 - Type 2 diabetes mellitus without complications Category: Medical Code(s): E11.9 - Type 2 diabetes mellitus without complications (5) Peripheral arterial occlusive disease: Status: Chronic Category: Medical Code(s): I77.9 - Disorder of arteries and arterioles, unspecified (6) Anxiety: Status: Chronic Category: Medical Code(s): F41.9 - Anxiety disorder, unspecified (7) Depression: Status: Chronic Qualifiers: Depression Type: unspecified Qualified Code(s): F32.9 - Major depressive disorder, single episode, unspecified Category: Medical Code(s): F32.9 - Major depressive disorder, single episode, unspecified (8) Congestive heart failure: Status: Acute Qualifiers: Heart failure type: unspecified Heart failure chronicity: unspecified Qualified Code(s): I50.9 - Heart failure, unspecified Category: Medical Code(s): I50.9 - Heart failure, unspecified (9) Lumbar radiculopathy: Status: Acute Category: Medical Code(s): M54.16 - Radiculopathy, lumbar region (10) DDD (degenerative disc disease), lumbar: Status: Acute Category: Medical Code(s): M51.36 - Other intervertebral disc degeneration, lumbar region Plan 87-year-old female with complex cardiac history, presented to clinic as an outpatient. Discussed case with cardiology, request admission for weakness and suspected UTI along with further workup. Medicine agreed to admit for further management. Initial labs reassuring. Problems addressed as follows: Lower extremity weakness - Patient reports history of arthritis for which she gets injections about every 3 months. Last set of injections was 2 months ago. Also reports that she uses various devices to get around including wheelchair occasionally at home, walker, canes. Only uses canes when she is out of the house however. Discussed necessity to use walker for safety. Patient states understanding. -Therapy eval pending -Kidney function normal at patient's baseline with CKD, creatinine 1.1, BUN 28. Magnesium low at 1.4, will replace IV with 2 g, continue 4 mg p.o. magnesium oxide daily CAD History of CABG ACCOUNTING PRACTICE MANAGER-P Hypertension Hyperlipidemia -Patient admitted to observation.? Discussed case with cardiology.? Work-up for causes of dizziness and transient loss of vision. -Limited echo pending to evaluate EF. -Continue patient's home regimen: Carvedilol 25 mg twice a day, Crestor 20 mg nightly for hyperlipidemia Transient loss of vision -Carotid duplex obtained a year ago, less than 50% stenosis bilaterally. No vision changes on current exam. Gets her eyes checked regularly. Similar complaint in the past. -No acute focal neurologic symptoms. No indication to obtain CT of her head at this time. -No focal abnormalities at this time. If develops focal changes or acute neurologic symptoms overnight, will obtain urgent CT of the head. -Resume aspirin and Plavix Urinary incontinence: Will obtain postvoid residual scan to evaluate for overflow incontinence. Pending finding, will consider treatment with tamsulosin versus oxybutynin Diabetes -Continue extended release metformin 500 mg, decrease to once daily -A1c 6.9. Well-controlled. goal <8 due to age -No indication for insulin at this time. Peripheral artery disease: Continue aspirin and Plavix as above. Mood and memory: Continue home donepezil 5 mg HS. Full code Cardiac diet
--- NOTE | 2023-09-04 13:10 | CA_ITS ---
APPROVED REPORT EXAM: Comprehensive 2D, Doppler, and color-flow Echocardiogram Cake Batter Mixer: Cheri Alfredo, RCS, RVS Ht: 5 ft 3 in Wt: 162lbs BSA: 1.77 BP: 148/79 mmHg Indications: CM, Weakness/fatigue, Pacer, Afib,CAD-cabg 2D Dimensions IVSd 1.58 cm LVEF (Visual) 31.30 % PWd 0.92 cm LA Volume 49.00 mL LVDd 4.63 cm LA Volume Index 27.10 mL/m2 (M/F) 16-34 LVDs 3.99 cm Left Atrium 3.50 cm M-Mode Dimensions LA Diam 4.02 cm (1.9-4.0) LVDd 4.74 cm (3.5-5.7) LVDs 4.14 cm (3.5-5.7) EF (Teich) 27.30% EPSs 0.86 cm FS 12.70% EDV (Teich) 104.40 mL TAPSE 1.74 (<1.7) ESV (Teich) 75.90 mL LV Diastology E Decel Time 200 (160-240 msec) E/A Ratio 0.56 MED A' 8.20 cm/s LAT A' 11.00 cm/s Aortic Valve JOSE DANIEL Index 1.22 cm2/m2 AoV Peak Steven. 131.0 (50-130 cm/s) AO Peak GR. 6.90 mmHg AO Mean GR. 3.50 (<5 mmHg) AO VTI 25.0 (18-25 cm) JOSE DANIEL (VTI) 2.20 (2.5-4.5 cm2) Mitral Valve MV A Velocity 102.0 (40-130 cm/s) E/A Ratio 0.56 Pulmonary Valve PV Peak Velocity 80.0 (50-150 cm/s) Tricuspid Valve TR P. Velocity 184.00 cm/s RAP Estimate 10.00 mmHg RVSP 23.60 mmHg Left Ventricle The left ventricle is normal size. The left ventricular systolic function is normal. The left ventricular ejection fraction is within the normal range. There is marked increase in LV wall thickness (IVSd 1.4 cm) There is normal LV segmental wall motion. Diastolic function is indeterminate. LVEF is 55%. Right Ventricle The right ventricle is normal size. The right ventricular systolic function is normal. Atria The left atrium size is normal. The right atrium size is normal. There is no Doppler evidence of interatrial shunt. Aortic Valve The aortic valve is mildly thickened. There is no aortic valvular stenosis. No aortic regurgitation is present. Mitral Valve The mitral valve leaflets are mildly thickened. No evidence of mitral valve stenosis. Trace mitral regurgitation. Tricuspid Valve The tricuspid valve leaflets are thin and pliable. Trace tricuspid regurgitation. There is insufficient TR jet to estimate RVSP. Pulmonic Valve The pulmonary valve is normal in structure. Mild pulmonic regurgitation. Great Vessels The aortic root is normal in size. The ascending aorta is normal in size. IVC is normal in size and collapses >50% with inspiration. Pericardium There is no pericardial effusion. Other Information Study Quality: Fair Conclusion Normal biventricular systolic function. Marked increase in LV wall thickness (IVSd 1.4 cm). No significant valvular stenosis or regurgitation. In the setting of increased LV wall thickness and persistent symptoms, further evaluation with cardiac MRI (amyloidosis protocol) is recommended to rule out infiltrative cardiomyopathy. Electronically signed by : Che Becerra MD 09/10/2023 11:34:16
[2023-09-04 13:40] VITALS: BP 160/69; PULSE 71; RESP 18; TEMP 36.6; O2SAT 92; BMI 25.9
[2023-09-04 14:16] VITALS: PULSE 70
[2023-09-04 14:19] LABS: Basophils # 0.1 K/mm3 (0-0.2); Basophils % 0.6 % (0.1-2.0); Eosinophils # 0.2 K/mm3 (0.0-0.4); Eosinophils % 2.1 % (0.1-12.0); Hematocrit 40.8 % (37.0-47.0); Hemoglobin 13.6 g/dL (12.2-16.2); Lymphocytes # 2.4 K/mm3 (0.7-4.5); Lymphocytes % 29.4 % (10-50); Mean Corpuscular HGB Conc 33.4 g/dL (31.8-35.4); Mean Corpuscular Hemoglobin 29.9 pg (27.0-31.2); Mean Corpuscular Volume 89.6 fl (81-99); Mean Platelet Volume 8.4 fl (7.4-10.4); Monocytes # 0.5 K/mm3 (0.1-1.0); Monocytes % 6.3 % (1.7-9.3); Neutrophils # 4.9 K/mm3 (1.8-7.8); Neutrophils % 61.6 % (37.0-80.0); Platelet Count 333 K/mm3 (142-424); Red Blood Count 4.56 M/mm3 (4.20-5.40); Red Cell Distribution Width 13.3 % (11.5-17.5)
[2023-09-04 14:23] LABS: Chloride 104 mmol/L (98-107)
[2023-09-04 14:24] LABS: Potassium 4.3 mmoL/L (3.5-5.1); Sodium 139 mmol/L (136-145)
--- NOTE | 2023-09-04 14:24 | HMH.PHAINT1 ---
Pharmacy Intervention Comments: home medication list verified using list from outpatient pharmacy and pcp office
[2023-09-04 14:26] LABS: Blood Urea Nitrogen 28 mg/dl (7-17); Creatinine Clearance Estimated 42 mL/min (50-200); Estimated Glomerular Filt Rate 47 ml/min (>60); GFR (African American) 57 ML/MIN (>60)
[2023-09-04 14:27] LABS: Alanine Aminotransferase 21 U/L (12-78); Albumin Level 4.1 g/dl (3.5-5.0); Albumin/Globulin Ratio 1.3 (1.1-1.8); Alkaline Phosphatase 55 U/L (38-126); Anion Gap 8.3 mEq/L (5-15); Aspartate Amino Transferase 28 U/L (14-36); Carbon Dioxide 31 mmol/L (22.0-30.0); Globulin 3.1 g/dL (1.3-3.2); Glucose 156 mg/dl (74-100); Total Protein,Serum 7.2 g/dl (6.3-8.2)
[2023-09-04 14:28] LABS: Magnesium 1.4 mg/dl (1.6-2.3)
--- NOTE | 2023-09-04 14:31 | HMH.PHAINT1 ---
Pharmacy Intervention Comments: HOME MEDICATION LIST VERIFIED VIA OUTSIDE PHARMACY AND PHYSICAN NOTE/LIST
--- NOTE | 2023-09-04 14:42 | ECG_ITS ---
APPROVED REPORT Exam: Resting ECG HR:70 bpm ECG Measurements Heart Rate 70 AXES IA 203 P -83 QRSd 165 QRS 270 QT 467 T 77 QTc 487 Conclusion ELECTRONIC ATRIAL PACEMAKER ELECTRONIC VENTRICULAR PACEMAKER ABNORMAL RHYTHM ECG UNCONFIRMED REPORT Electronically signed by : Kody Isaacs MD 09/05/2023 08:27:38
[2023-09-04 14:47] LABS: Troponin I < 0.01 ng/ml (0.00-0.034)
[2023-09-04 16:00] VITALS: BP 154/78; PULSE 70; RESP 18; TEMP 36.9; O2SAT 98
[2023-09-04] MEDS: MAGNESIUM SULFATE IN WATER 2 GM/50 ML PIGGYBACK IV (16:00)
[2023-09-04 16:22] LABS: POC Glucose,Bedside 140 (70-110)
[2023-09-04 16:49] LABS: Hemoglobin A1C 6.9 % (4.0-6.0)
[2023-09-04] MEDS: METFORMIN 500MG TABLET 500 MG PO (16:58)
[2023-09-04 17:25] LABS: Troponin I < 0.01 ng/ml (0.00-0.034)
[2023-09-04 20:00] VITALS: BP 166/77; PULSE 70; RESP 16; TEMP 36.7; O2SAT 97; O2SAT 98
[2023-09-04 20:03] LABS: Troponin I < 0.01 ng/ml (0.00-0.034)
[2023-09-04 21:06] LABS: POC Glucose,Bedside 121 (70-110)
[2023-09-04] MEDS: DONEPEZIL 5MG TAB 5 MG PO (21:07)
[2023-09-04] MEDS: CARVEDILOL 12.5MG TABLET 12.5 MG PO (21:07)
[2023-09-04] MEDS: PANTOPRAZOLE 40MG TABLET 40 MG PO (21:07)
--- NOTE | 2023-09-04 21:48 | PC.NURSE ---
AT 2100 PATIENT VOIDED 100 ML CLEAR YELLOW URINE. SPECIMEN SENT TO LAB. POST VOID BLADDER SCAN VERY DIFFICULT IT KEPT REGESTERING 0. FINALLY GOT A SCAN OF 1 ML.
[2023-09-04 23:45] LABS: Microscopic, Urine URINE MICROSCOPIC (MICROSCOPIC)
[2023-09-05] VITALS: BP 104/54; PULSE 70; RESP 16; TEMP 36.9; O2SAT 97
[2023-09-05 00:24] LABS: Appearance,Urine SL CLOUDY (Clear); Bacteria,Urine 3+ /lpf; Bilirubin,Urine Negative (Negative); Blood, Urine Negative (Negative); Color,Urine YELLOW (Yellow); Glucose,Urine (UA) Negative (Negative); Ketones,Urine Negative (Negative); Leukocyte Esterase,Urine Negative (Negative); Nitrate,Urine Negative (Negative); Protein,Urine TRACE (Negative); RBC,Urine Occasional #/hpf (0-3); Specific Gravity, Urine >= 1.030 (1.005-1.030); Urobilinogen,Urine 0.2 EU/dl (0.2)
[2023-09-05 00:25] LABS: Transitional Epi Cells,Urine OCC #/lpf (0-3)
[2023-09-05 04:00] VITALS: BP 131/75; PULSE 70; PULSE 74; RESP 16; TEMP 36.8; O2SAT 97; BMI 24.7
[2023-09-05 05:04] LABS: POC Glucose,Bedside 129 (70-110)
[2023-09-05 07:05] LABS: Chloride 105 mmol/L (98-107); Potassium 3.9 mmoL/L (3.5-5.1); Sodium 138 mmol/L (136-145)
[2023-09-05 07:08] LABS: Alanine Aminotransferase 14 U/L (12-78); Albumin Level 3.6 g/dl (3.5-5.0); Albumin/Globulin Ratio 1.3 (1.1-1.8); Alkaline Phosphatase 53 U/L (38-126); Anion Gap 7.9 mEq/L (5-15); Aspartate Amino Transferase 27 U/L (14-36); Bilirubin,Total 1.1 mg/dl (0.2-1.3); Blood Urea Nitrogen 28 mg/dl (7-17); Calcium 9.6 mg/dl (8.4-10.2); Carbon Dioxide 29 mmol/L (22.0-30.0); Creatinine Clearance Estimated 45 mL/min (50-200); Estimated Glomerular Filt Rate 53 ml/min (>60); GFR (African American) 64 ML/MIN (>60); Globulin 2.7 g/dL (1.3-3.2); Glucose 129 mg/dl (74-100); Magnesium 1.7 mg/dl (1.6-2.3); Total Protein,Serum 6.3 g/dl (6.3-8.2)
[2023-09-05 07:21] LABS: Basophils # 0.1 K/mm3 (0-0.2); Basophils % 0.7 % (0.1-2.0); Eosinophils # 0.2 K/mm3 (0.0-0.4); Hematocrit 38.4 % (37.0-47.0); Hemoglobin 12.8 g/dL (12.2-16.2); Lymphocytes # 2.2 K/mm3 (0.7-4.5); Lymphocytes % 25.8 % (10-50); Mean Corpuscular HGB Conc 33.3 g/dL (31.8-35.4); Mean Corpuscular Hemoglobin 29.6 pg (27.0-31.2); Mean Platelet Volume 8.2 fl (7.4-10.4); Monocytes # 0.6 K/mm3 (0.1-1.0); Monocytes % 7.4 % (1.7-9.3); Neutrophils # 5.3 K/mm3 (1.8-7.8); Neutrophils % 64.1 % (37.0-80.0); Platelet Count 334 K/mm3 (142-424); Red Blood Count 4.31 M/mm3 (4.20-5.40); Red Cell Distribution Width 13.3 % (11.5-17.5); White Blood Count 8.3 K/mm3 (4.8-10.8)
--- NOTE | 2023-09-05 07:44 | HMH.PTEV ---
Physical Therapy Evaluation Rehab PT IP Evaluation Start: 09/04/23 18:26 Freq: ONCE Status: Active Protocol: Document 09/05/23 07:29 SU (Rec: 09/05/23 07:36 SU [id number]) Subjective/History History History Per H&P: Ms. Villanueva is an 87- year-old female who presented to cardiology clinic as an outpatient with complaint of fatigue and weakness. She has a history significant for CAD , peripheral artery disease, CABG, pacemaker, stenting, diabetes, chronic low back pain with lumbar radiculopathy /degenerative disc disease. Initial presentation to cardiology clinic she is complaining of weakness in her legs. Has multiple complaints including transient loss of vision during her drive from [place] with her significant other (she does not drive). Is having significant pain from her back down her legs causing weakness, worse in her bilateral hips. Having some incontinence, wears pads daily . Denies any bc syncope. Stumbled coming into the hospital this morning and needed help. Only uses her cane when she is out but uses a walker at home. In cardiology clinic, there was concern for her worsening weakness and possible UTI. Medicine consulted for admission and further workup given patient's underlying medical complexity and diffuse complaints. Medicine agreed to admit for further management. Subjective Subjective PLOF: Pt lives in a 2-story home with 3 TESS with roommate. Pt reports her roommate is around during the day if needed. Was IND with mobility and ADLs. Pt usually uses a cane or furniture walks. Pt reports her doctor instructed her to use RW but pt states they are too difficult to get around with. Reports a few falls in the past month. New diagnosis of cancer in past 12 No months? Rehab PT IP Eval Objective Appearance Patient Behavior Appropriate,Cooperative Patient Orientation Person,Place,Situation Difficulty following instructions none Speech Pattern Clear Ambulation Patient Able to Ambulate Yes Ambulation Observation IP General Gait Pattern Observation No Deviations/Normal Ambulation Distance (feet) 30 Ambulation Assistive Device Rolling Walker Balance Ability to Arise Able, w/o using arms Sitting Balance Steady, safe Standing Balance Narrow stance w/o support Transfers Bed Transfer Ability Supervision/Stand by Sit to Stand Bed Transfer Ability Supervision/Stand by Rehab PT IP prob,goals,plan Problems Date of Evaluation: 09/05/23 Rehab Potential Rehab Potential Innapropriate for Skilled Therapy Discharge Plan PT Discharge Plan Pt is safe to d/c home when deemed medically necessary d/t current level of mobility. Pt not appropriate for skilled PT d/t being at baseline function. PT educated pt on using her RW to maximize safety with ambulation. Pt verbalized understanding. PT recommending HH to address strength and endurance deficits. Eval Complexity Eval Charge Codes 81374 - Moderate Complexity PHYSICIAN CERTIFICATION: I certify the specified therapy services for Luciana Rousenoealex are required, authorized, and reviewed every 30 days.
[2023-09-05 08:00] VITALS: BP 162/80; PULSE 70; PULSE 71; RESP 19; TEMP 36.9; O2SAT 94
[2023-09-05] MEDS: CLOPIDOGREL 75MG TAB 75 MG PO (08:06)
[2023-09-05] MEDS: METFORMIN 500MG TABLET 500 MG PO (08:06)
[2023-09-05] MEDS: MAGNESIUM OXIDE 400MG TABLET 400 MG PO (08:06)
[2023-09-05] MEDS: CARVEDILOL 12.5MG TABLET 12.5 MG PO (08:06)
--- NOTE | 2023-09-05 09:32 | P.CONCA_ITS ---
History of Present Illness History of Present Illness Consult date: 09/05/23 Requesting physician: Darron Steele Consult reason: known to you Chief complaint: weakness Additional Medical History:: 1. CAD with history of CABG [facility]. [facility], 06/15/2022, adequate hybrid coronary artery revascularization with patent HUTTON to LAD, patent SVG to circumflex and patent SVG to RCA. Patent left main and LAD stent 2. Hypertension 3. Cardiomyopathy with EF 45%, echo, 06/2022, mild MR and TR with RVSP 44 mmHg. Thickened and calcified aortic valve without stenosis. 4. PAD with history of lower extremity stenting at an outside facility 5. Coronary artery stenosis, less than 50% stenosis bilaterally, 07/05/2022 6. Hyperlipidemia 7. RN REHAB pacemaker 8. Diabetes mellitus 9. GERD 10. Chronic low back pain followed by pain management History of present illness: 87-year-old white female with multiple medical issues as noted above presented to cardiology office yesterday with complaint of chest pain, pressure, shortness of breath with activity, dizziness, fatigue and hurting all over her body with burning in her urine. Patient ultimately was admitted with workup per [facility] essentially unremarkable. Patient did receive supplemental magnesium and is feeling better this morning. Troponins normal overnight. EKG shows AV pacing at 70 bpm This morning patient is feeling better and ready to go home [facility] Disclaimer: The information contained in this section may have been updated after the patient was seen, as this information can be updated by other users. Medical History Constipation History of transient ischemic attack (TIA) History of back pain Osteoarthritis Allergies History of pacemaker Thickened endometrium Post-menopausal bleeding CAD (coronary artery disease) DM2 (diabetes mellitus, type 2) HTN (hypertension) Unstable angina Difficulty swallowing Cardiac pacemaker in situ Depression Contact dermatitis Restless legs Surgical History Hx of CABG History of open heart surgery History of coronary artery stent placement History of cardiac cath History of cholecystectomy Family History Other Family history of cancer Family history of myocardial infarction Social History Smoking Status: Former smoker tobacco type: cigarettes packs per day: 1 how long ago did patient quit smokin second hand exposure: No alcohol intake: never substance use type: denies use current occupational status: retired Travel in the last 8 weeks: None housing: house number of children: 0 current occupational exposures/hazards: No caffeine: Yes Review of Systems Review of Systems Review of systems:: pertinent systems reviewed and negative unless documented below *Cardiovascular Cardiovascular: Reports chest pain and Reports dyspnea *Respiratory Respiratory: Reports dyspnea *Musculoskeletal Musculoskeletal: Reports back pain Exam Data for Last 24 hours Vital signs and Labs for Last 24 Hours: Temp Pulse Resp BP Pulse Ox O2 Del Method 98.5 F 71 19 162/80 H 94 L Room Air 09/05/23 08:00 09/05/23 08:00 09/05/23 08:00 09/05/23 08:00 09/05/23 08:00 09/05/23 08:00 Laboratory Results - last 24 hr 09/04/23 14:06: WBC 8.0, RBC 4.56, Hgb 13.6, Hct 40.8, MCV 89.6, MCH 29.9, MCHC 33.4, RDW 13.3, Plt Count 333, MPV 8.4, Neut % (Auto) 61.6, Lymph % (Auto) 29.4, Hendricks % (Auto) 6.3, Eos % (Auto) 2.1, Baso % (Auto) 0.6, Neut # (Auto) 4.9, Lymph # (Auto) 2.4, Hendricks # (Auto) 0.5, Eos # (Auto) 0.2, Baso # (Auto) 0.1, Sodium 139, Potassium 4.3, Chloride 104, Carbon Dioxide 31 H, Anion Gap 8.3, BUN 28 H, Creatinine 1.10 H, Estimated Creat Clear 42, Estimated GFR 47 L, Est GFR ( Amer) 57 L, Glucose 156 H, Hemoglobin A1c 6.9 H, Calcium 10.0, Magnesium 1.4 L, Total Bilirubin 1.0, AST 28, ALT 21, Alkaline Phosphatase 55, Troponin I < 0.01, Total Protein 7.2, Albumin 4.1, Globulin 3.1, Albumin/Globulin Ratio 1.3 09/04/23 16:14: POC Glucose 140 H 09/04/23 16:15: Troponin I < 0.01 09/04/23 19:10: Troponin I < 0.01 09/04/23 20:54: POC Glucose 121 H 09/04/23 21:00: Urine Color Yellow, Urine Appearance Sl cloudy, Urine pH 6.0, Ur Specific [place] >= 1.030, Urine Protein Trace, Urine Glucose (UA) Negative, Urine Ketones Negative, Urine Blood Negative, Urine Nitrate Negative, Urine Bilirubin Negative, Urine Urobilinogen 0.2, Ur Leukocyte Esterase Negative, Urine RBC Occasional, Urine WBC 5-10, Ur Squamous Epith Cells None, Ur Transition Epith Cell Occ, Urine Bacteria 3+ 09/05/23 04:55: POC Glucose 129 H 09/05/23 06:05: WBC 8.3, RBC 4.31, Hgb 12.8, Hct 38.4, MCV 89.0, MCH 29.6, MCHC 33.3, RDW 13.3, Plt Count 334, MPV 8.2, Neut % (Auto) 64.1, Lymph % (Auto) 25.8, Hendricks % (Auto) 7.4, Eos % (Auto) 2.0, Baso % (Auto) 0.7, Neut # (Auto) 5.3, Lymph # (Auto) 2.2, Hendricks # (Auto) 0.6, Eos # (Auto) 0.2, Baso # (Auto) 0.1, Sodium 138, Potassium 3.9, Chloride 105, Carbon Dioxide 29, Anion Gap 7.9, BUN 28 H, Creatinine 1.00, Estimated Creat Clear 45, Estimated GFR 53 L, Est GFR ( Amer) 64, Glucose 129 H, Calcium 9.6, Magnesium 1.7 D, Total Bilirubin 1.1, AST 27, ALT 14 D, Alkaline Phosphatase 53, Total Protein 6.3, Albumin 3.6 D, Globulin 2.7, Albumin/Globulin Ratio 1.3 I & O for Last 24 hours: Intake & Output 09/02/23 09/03/23 09/04/23 09/05/23 11:59 11:59 11:59 11:59 Intake Total 1375 / 1375 Output Total 200 / 200 Balance 1175 / 1175 Weight 154 lb 4.8 oz Constitutional Constitutional: no acute distress *Routine Respiratory Exam Respiratory: Present CTA bilaterally *Routine Cardiovascular Exam Cardiovascular: Present RRR *Routine Extremities Exam Extremities: Absent edema Meds Home Medications and Allergies Home Medications Medication Instructions Recorded Confirmed Type aspirin 81 mg tablet,delayed 81 mg PO DAILY 07/05/22 09/04/23 History release clopidogrel 75 mg tablet (Plavix) 75 mg PO DAILY 07/05/22 09/04/23 History carvedilol 25 mg tablet 25 mg PO BID 09/04/23 09/04/23 History donepezil 5 mg tablet 5 mg PO HS 09/04/23 09/04/23 History pantoprazole 40 mg tablet,delayed 40 mg PO HS 09/04/23 09/04/23 History release rosuvastatin 20 mg tablet 20 mg PO HS 09/04/23 09/04/23 History magnesium oxide 400 mg (241.3 mg 400 mg PO DAILY 30 days #30 tabs 09/05/23 Rx magnesium) tablet metformin 500 mg tablet 500 mg PO DAILY 30 days #0 tabs 09/05/23 09/04/23 Rx New Prescriptions to Start Prescriptions: magnesium oxide Darron Steele Allergies Allergy/AdvReac Type Severity Reaction Status Date / Time ropinirole [From Requip] Allergy Mild vomiting Verified 09/04/23 11:19 Assessment and Plan *Assessment and plan (1) Lower extremity weakness: Status: Acute Qualifiers: Laterality: bilateral Qualified Code(s): R29.898 - Other symptoms and signs involving the musculoskeletal system Category: Medical Code(s): R29.898 - Other symptoms and signs involving the musculoskeletal system (2) Coronary arteriosclerosis: Problem Comment: Medical mgt (JUN 2022) Medical management in (06/2019.) Hx of CABG. DAPT with ASA and Plavix. Status: Chronic Category: Medical Code(s): I25.10 - Atherosclerotic heart disease of [place] coronary artery without angina pectoris (3) Cardiac pacemaker in situ: Status: Chronic Category: Medical Code(s): Z95.0 - Presence of cardiac pacemaker (4) Low back pain: Status: Acute Qualifiers: Back pain laterality: bilateral Chronicity: chronic Sciatica presence: unspecified whether sciatica present Qualified Code(s): M54.50 - Low back pain, unspecified; G89.29 - Other chronic pain Category: Medical Code(s): M54.50 - Low back pain, unspecified (5) UTI symptoms: Status: Acute Category: Medical Code(s): R39.9 - Unspecified symptoms and signs involving the genitourinary system (6) Congestive heart failure: Status: Acute Qualifiers: Heart failure chronicity: unspecified Heart failure type: unspecified Qualified Code(s): I50.9 - Heart failure, unspecified Category: Medical Code(s): I50.9 - Heart failure, unspecified Plan 1. Chronic low back pain and lower extremity weakness, improved 2. Coronary artery disease, clinically stable with normal troponins 3. Diabetes mellitus with hemoglobin A1c 6.9, defer to hospital 4. Hypomagnesemia, resolved 5. RN REHAB-P in situ 6. History of urinary incontinence, defer to Dr. Steele 7. HFrEF, clinically stable Clinically stable from a cardiac standpoint for discharge home. Home medication recommendations: Resume aspirin 81 mg daily Carvedilol 25 mg twice daily Plavix 75 mg daily Crestor 20 mg daily Pantoprazole 40 mg daily Follow-up in our office as previously scheduled
--- NOTE | 2023-09-05 09:43 | CARE MANAGER ---
Per PT/OT this morning, patient is appropriate for home with HH services and walker. Patient reportedly has a standard walker and would benefit from having a rolling walker. I will speak with patient and send clinical/order if appropriate.
--- NOTE | 2023-09-05 09:46 | HMH.OTEV ---
OT Inpatient Evaluation Rehab OT IP Evaluation Start: 09/04/23 18:26 Freq: ONCE Status: Active Protocol: Document 09/05/23 09:42 [facility] (Rec: 09/05/23 09:46 [facility] [id number]) Rehab OT IP Assessment Subjective History Pt oriented x 3 on arrival. Pt agreeable to engage in therapy evaluation. Pt admitted on 09/04/23 due to chest pain and SOA. Per H&P: Ms. Villanueva is an 87- year-old female who presented to cardiology clinic as an outpatient with complaint of fatigue and weakness. She has a history significant for CAD , peripheral artery disease, CABG, pacemaker, stenting, diabetes, chronic low back pain with lumbar radiculopathy /degenerative disc disease. Initial presentation to cardiology clinic she is complaining of weakness in her legs. Has multiple complaints including transient loss of vision during her drive from [place] with her significant other (she does not drive). Is having significant pain from her back down her legs causing weakness, worse in her bilateral hips. Having some incontinence, wears pads daily . Denies any bc syncope. Stumbled coming into the hospital this morning and needed help. Only uses her cane when she is out but uses a walker at home. In cardiology clinic, there was concern for her worsening weakness and possible UTI. Medicine consulted for admission and further workup given patient's underlying medical complexity and diffuse complaints. Medicine agreed to admit for further management. Subjective PLOF: Pt lives in a 2-story home with 3 TESS with roommate. Pt reports her roommate is around during the day if needed. Was IND with mobility and ADLs. Pt usually uses a cane or furniture walks. Pt reports her doctor instructed her to use RW but pt states they are too difficult to get around with. Reports a few falls in the past month. Objective Patient Orientation Person,Place,Birthday Right Upper Extremity Gross ROM WFL Left Upper Extremity Gross ROM WFL Transfer Training Sit/Stand Transfer Assist Level Supervision/Stand by Chair Transfer Ability Supervision/Stand by Chair Transfer Technique Sit to/from Ambulatory Chair Transfer Assistive Devices Rolling Walker Lower Body Dressing Ability Standby Assistance Performing Toilet Hygiene Ability Standby Assistance Overall Commode/Toilet Transfer Ability Standby Assistance Commode/Toilet Transfer Technique Sit to/from Ambulatory Commode/Toilet Transfer Assistive Grab Bars Devices Rehab OT IP prob,goals,plan Problems Date of Evaluation: 09/05/23 Rehab Potential Rehab Potential Innapropriate for Skilled Therapy Discharge Plan OT Discharge Plan Pt appears to be at her baseline with functional transfers and ADL independence . Pt can return home with her roommate once she is medially stable per physician. Therapist recommends OT evaluaiton upon returning home to evaluate her home environment to increase safety . Eval Complexity Eval Charge Codes 76835 - Low Complexity PHYSICIAN CERTIFICATION: I certify the specified therapy services for Luciana Villanueva are required, authorized, and reviewed every 30 days.
--- NOTE | 2023-09-05 10:44 | EXP.DC.SUM ---
General Admission date:: 09/04/23 Discharge date: 09/05/23 HPI HPI HPI: Ms. Villanueva is an 87-year-old female who presented to cardiology clinic as an outpatient with complaint of fatigue and weakness. She has a history significant for CAD, peripheral artery disease, CABG, pacemaker, stenting, diabetes, chronic low back pain with lumbar radiculopathy/degenerative disc disease. Initial presentation to cardiology clinic she is complaining of weakness in her legs. Has multiple complaints including transient loss of vision during her drive from [place] with her significant other (she does not drive). Is having significant pain from her back down her legs causing weakness, worse in her bilateral hips. Having some incontinence, wears pads daily. Denies any bc syncope. Stumbled coming into the hospital this morning and needed help. Only uses her cane when she is out but uses a walker at home. In cardiology clinic, there was concern for her worsening weakness and possible UTI. Medicine consulted for admission and further workup given patient's underlying medical complexity and diffuse complaints. Medicine agreed to admit for further management. On arrival to the floor she is hemodynamically stable. Alert and oriented x 3. On room air. Afebrile. Denies any nausea, vomiting, chest pain. Of note: Had a similar episode a year ago with transient changes in vision and general weakness and at that time had complaint of passing blood clots in her underwear. She had an KENDRA at that time with her dizziness. Hospital Course Hospital Course Hospital Course: 87-year-old female with complex cardiac history, presented to clinic as an outpatient. Discussed case with cardiology, request admission for weakness and suspected UTI along with further workup. Medicine agreed to admit for further management. Workup with findings at patient's baseline. Improved with treatment for hypomagnesemia. Stable to discharge home with further management as an outpatient. Problems addressed as follows: Lower extremity weakness - Patient reports history of arthritis for which she gets injections about every 3 months. Last set of injections was 2 months ago. Also reports that she uses various devices to get around including wheelchair occasionally at home, walker, canes. Only uses canes when she is out of the house however. Discussed necessity to use walker for safety. Patient states understanding. Therapy evaluated. Recommend rolling walker to discharge home with. Would benefit from outpatient therapy. Was found to have low magnesium at 1.4. Replaced during admission. Will continue p.o. magnesium supplement at discharge. 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 Discussed case with cardiology.? Work-up for causes of dizziness and transient loss of vision. Limited echo with stable findings. Cardiology evaluated patient. Recommend continuing home regimen with carvedilol 25 mg twice daily, Crestor 20 mg nightly for hyperlipidemia. Clinically improved with replacement of her magnesium and monitoring overnight. Transient loss of vision -Carotid duplex obtained a year ago, less than 50% stenosis bilaterally. No vision changes on current exam. Gets her eyes checked regularly. Similar complaint in the past. -No acute focal neurologic symptoms. No indication to obtain CT of her head at this time. Resume aspirin and Plavix Urinary incontinence: Will obtain postvoid residual scan to evaluate for overflow incontinence, was negative during admission. Further management for incontinence as an outpatient. Continue pads. Diabetes: A1c well-controlled at 6.9. Goal less than 8 due to age and comorbidities and most recent ADA recommendations. Continue home regimen with extended release metformin 500 mg, decrease to once daily Peripheral artery disease: Continue aspirin and Plavix as above. Mood and memory: Continue home donepezil 5 mg HS. Total time spent on discharge 38 minutes in counseling, documentation, chart review, and direct care with patient. Exam Data for Last 24 hours Vital signs and Labs for Last 24 Hours: Temp Pulse Resp BP Pulse Ox O2 Del Method 98.5 F 71 19 162/80 H 94 L Room Air 09/05/23 08:00 09/05/23 08:00 09/05/23 08:00 09/05/23 08:00 09/05/23 08:00 09/05/23 09:00 Laboratory Results - last 24 hr 09/04/23 14:06: WBC 8.0, RBC 4.56, Hgb 13.6, Hct 40.8, MCV 89.6, MCH 29.9, MCHC 33.4, RDW 13.3, Plt Count 333, MPV 8.4, Neut % (Auto) 61.6, Lymph % (Auto) 29.4, [place] % (Auto) 6.3, Eos % (Auto) 2.1, Baso % (Auto) 0.6, Neut # (Auto) 4.9, Lymph # (Auto) 2.4, [place] # (Auto) 0.5, Eos # (Auto) 0.2, Baso # (Auto) 0.1, Sodium 139, Potassium 4.3, Chloride 104, Carbon Dioxide 31 H, Anion Gap 8.3, BUN 28 H, Creatinine 1.10 H, Estimated Creat Clear 42, Estimated GFR 47 L, Est GFR ( Amer) 57 L, Glucose 156 H, Hemoglobin A1c 6.9 H, Calcium 10.0, Magnesium 1.4 L, Total Bilirubin 1.0, AST 28, ALT 21, Alkaline Phosphatase 55, Troponin I < 0.01, Total Protein 7.2, Albumin 4.1, Globulin 3.1, Albumin/Globulin Ratio 1.3 09/04/23 16:14: POC Glucose 140 H 09/04/23 16:15: Troponin I < 0.01 09/04/23 19:10: Troponin I < 0.01 09/04/23 20:54: POC Glucose 121 H 09/04/23 21:00: Urine Color Yellow, Urine Appearance Sl cloudy, Urine pH 6.0, Ur Specific [place] >= 1.030, Urine Protein Trace, Urine Glucose (UA) Negative, Urine Ketones Negative, Urine Blood Negative, Urine Nitrate Negative, Urine Bilirubin Negative, Urine Urobilinogen 0.2, Ur Leukocyte Esterase Negative, Urine RBC Occasional, Urine WBC 5-10, Ur Squamous Epith Cells None, Ur Transition Epith Cell Occ, Urine Bacteria 3+ 09/05/23 04:55: POC Glucose 129 H 09/05/23 06:05: WBC 8.3, RBC 4.31, Hgb 12.8, Hct 38.4, MCV 89.0, MCH 29.6, MCHC 33.3, RDW 13.3, Plt Count 334, MPV 8.2, Neut % (Auto) 64.1, Lymph % (Auto) 25.8, [place] % (Auto) 7.4, Eos % (Auto) 2.0, Baso % (Auto) 0.7, Neut # (Auto) 5.3, Lymph # (Auto) 2.2, [place] # (Auto) 0.6, Eos # (Auto) 0.2, Baso # (Auto) 0.1, Sodium 138, Potassium 3.9, Chloride 105, Carbon Dioxide 29, Anion Gap 7.9, BUN 28 H, Creatinine 1.00, Estimated Creat Clear 45, Estimated GFR 53 L, Est GFR ( Amer) 64, Glucose 129 H, Calcium 9.6, Magnesium 1.7 D, Total Bilirubin 1.1, AST 27, ALT 14 D, Alkaline Phosphatase 53, Total Protein 6.3, Albumin 3.6 D, Globulin 2.7, Albumin/Globulin Ratio 1.3 I & O for Last 24 hours: Intake & Output 09/02/23 09/03/23 09/04/23 09/05/23 23:59 23:59 23:59 23:59 Intake Total 535 / 775 840 / 840 Output Total 100 / 200 100 / 100 Balance 435 / 575 740 / 740 Weight 72.745 kg 69.989 kg Constitutional Constitutional: no acute distress and average body habitus *Routine HEENT Exam Head: Present normocephalic Eye: Present EOMI and PERRL ENT: Present mucous membranes moist *Routine Neck Exam Neck: Present supple; Absent lymphadenopathy Routine Chest/Breast/Axilla Exam Comments: Well-healed sternotomy scar, pacemaker in left upper chest. *Routine Respiratory Exam Respiratory: Present CTA bilaterally and normal respiratory effort; Absent accessory muscle use, rhonchi, wheezes or crackles *Routine Cardiovascular Exam Cardiovascular: Present RRR *Routine Abdominal Exam Abdominal: Present soft and normoactive bowel sounds; Absent tenderness *Routine Rectal Exam Patient deferred: visual exam *Routine Exam Patient deferred: external exam *Routine Extremities Exam Extremities: Absent cyanosis, clubbing or edema Routine Back/Spine/Pelvis Exam Comments: paraspinal lumbar tenderness *Routine Skin Exam Skin: Present warm; Absent rash *Routine Neurological Exam Neurological: Present alert, oriented X3, CN II-XII intact and moving all extremities; Absent altered mental status Results Data Completed and Pending Labs on day of discharge: Labs from last 24 hours 09/05/23 09/05/23 09/04/23 06:05 04:55 21:00 WBC 8.3 RBC 4.31 Hgb 12.8 Hct 38.4 MCV 89.0 MCH 29.6 MCHC 33.3 RDW 13.3 Plt Count 334 MPV 8.2 Neut % (Auto) 64.1 Lymph % (Auto) 25.8 [place] % (Auto) 7.4 Eos % (Auto) 2.0 Baso % (Auto) 0.7 Neut # (Auto) 5.3 Lymph # (Auto) 2.2 [place] # (Auto) 0.6 Eos # (Auto) 0.2 Baso # (Auto) 0.1 Sodium 138 Potassium 3.9 Chloride 105 Carbon Dioxide 29 Anion Gap 7.9 BUN 28 H Creatinine 1.00 Estimated Creat Clear 45 Estimated GFR 53 L Est GFR ( Amer) 64 Glucose 129 H POC Glucose 129 H Hemoglobin A1c Calcium 9.6 Magnesium 1.7 D Total Bilirubin 1.1 AST 27 ALT 14 D Alkaline Phosphatase 53 Troponin I Total Protein 6.3 Albumin 3.6 D Globulin 2.7 Albumin/Globulin Ratio 1.3 Urine Color Yellow Urine Appearance Sl cloudy Urine pH 6.0 Ur Specific [place] >= 1.030 Urine Protein Trace Urine Glucose (UA) Negative Urine Ketones Negative Urine Blood Negative Urine Nitrate Negative Urine Bilirubin Negative Urine Urobilinogen 0.2 Ur Leukocyte Esterase Negative Urine RBC Occasional Urine WBC 5-10 Ur Squamous Epith Cells None Ur Transition Epith Cell Occ Urine Bacteria 3+ 09/04/23 09/04/23 09/04/23 20:54 19:10 16:15 WBC RBC Hgb Hct MCV MCH MCHC RDW Plt Count MPV Neut % (Auto) Lymph % (Auto) [place] % (Auto) Eos % (Auto) Baso % (Auto) Neut # (Auto) Lymph # (Auto) [place] # (Auto) Eos # (Auto) Baso # (Auto) Sodium Potassium Chloride Carbon Dioxide Anion Gap BUN Creatinine Estimated Creat Clear Estimated GFR Est GFR ( Amer) Glucose POC Glucose 121 H Hemoglobin A1c Calcium Magnesium Total Bilirubin AST ALT Alkaline Phosphatase Troponin I < 0.01 < 0.01 Total Protein Albumin Globulin Albumin/Globulin Ratio Urine Color Urine Appearance Urine pH Ur Specific [place] Urine Protein Urine Glucose (UA) Urine Ketones Urine Blood Urine Nitrate Urine Bilirubin Urine Urobilinogen Ur Leukocyte Esterase Urine RBC Urine WBC Ur Squamous Epith Cells Ur Transition Epith Cell Urine Bacteria 09/04/23 09/04/23 16:14 14:06 WBC 8.0 RBC 4.56 Hgb 13.6 Hct 40.8 MCV 89.6 MCH 29.9 MCHC 33.4 RDW 13.3 Plt Count 333 MPV 8.4 Neut % (Auto) 61.6 Lymph % (Auto) 29.4 [place] % (Auto) 6.3 Eos % (Auto) 2.1 Baso % (Auto) 0.6 Neut # (Auto) 4.9 Lymph # (Auto) 2.4 [place] # (Auto) 0.5 Eos # (Auto) 0.2 Baso # (Auto) 0.1 Sodium 139 Potassium 4.3 Chloride 104 Carbon Dioxide 31 H Anion Gap 8.3 BUN 28 H Creatinine 1.10 H Estimated Creat Clear 42 Estimated GFR 47 L Est GFR ( Amer) 57 L Glucose 156 H POC Glucose 140 H Hemoglobin A1c 6.9 H Calcium 10.0 Magnesium 1.4 L Total Bilirubin 1.0 AST 28 ALT 21 Alkaline Phosphatase 55 Troponin I < 0.01 Total Protein 7.2 Albumin 4.1 Globulin 3.1 Albumin/Globulin Ratio 1.3 Urine Color Urine Appearance Urine pH Ur Specific [place] Urine Protein Urine Glucose (UA) Urine Ketones Urine Blood Urine Nitrate Urine Bilirubin Urine Urobilinogen Ur Leukocyte Esterase Urine RBC Urine WBC Ur Squamous Epith Cells Ur Transition Epith Cell Urine Bacteria DS: Diagnosis Discharge Diagnosis (1) Lower extremity weakness: Status: Acute Code(s): R29.898 - Other symptoms and signs involving the musculoskeletal system Qualifiers: Laterality: bilateral Qualified Code(s): R29.898 - Other symptoms and signs involving the musculoskeletal system (2) Coronary arteriosclerosis: Status: Chronic Code(s): I25.10 - Atherosclerotic heart disease of [place] coronary artery without angina pectoris Problem details: Medical mgt (JUN 2022) Medical management in (06/2019.) Hx of CABG. DAPT with ASA and Plavix. (3) Cardiac pacemaker in situ: Status: Chronic Code(s): Z95.0 - Presence of cardiac pacemaker (4) Low back pain: Status: Acute Code(s): M54.50 - Low back pain, unspecified Qualifiers: Back pain laterality: bilateral Chronicity: chronic Sciatica presence: unspecified whether sciatica present Qualified Code(s): M54.50 - Low back pain, unspecified; G89.29 - Other chronic pain (5) UTI symptoms: Status: Resolved Code(s): R39.9 - Unspecified symptoms and signs involving the genitourinary system (6) Congestive heart failure: Status: Acute Code(s): I50.9 - Heart failure, unspecified Qualifiers: Heart failure chronicity: unspecified Heart failure type: unspecified Qualified Code(s): I50.9 - Heart failure, unspecified Meds Home Medications and Allergies Home Medications Medication Instructions Recorded Confirmed Type aspirin 81 mg tablet,delayed 81 mg PO DAILY 07/05/22 09/04/23 History release clopidogrel 75 mg tablet (Plavix) 75 mg PO DAILY 07/05/22 09/04/23 History carvedilol 25 mg tablet 25 mg PO BID 09/04/23 09/04/23 History donepezil 5 mg tablet 5 mg PO HS 09/04/23 09/04/23 History pantoprazole 40 mg tablet,delayed 40 mg PO HS 09/04/23 09/04/23 History release rosuvastatin 20 mg tablet 20 mg PO HS 09/04/23 09/04/23 History magnesium oxide 400 mg (241.3 mg 400 mg PO DAILY 30 days #30 tabs 09/05/23 Rx magnesium) tablet metformin 500 mg tablet 500 mg PO DAILY 30 days #0 tabs 09/05/23 09/04/23 Rx New Prescriptions to Start Prescriptions: Darron Chang Allergies Allergy/AdvReac Type Severity Reaction Status Date / Time ropinirole [From Requip] Allergy Mild vomiting Verified 09/04/23 11:19 Discharge Plan Disposition Patient Disposition: Home, Self-Care Condition: Fair Follow up Plan Follow up with: Steve Sarabia PA [Physician [facility]] - 09/24/23 2:00 pm Nadia Bellamy DO [Primary Care Provider] - 09/18/23 11:00 am Prescriptions/Medication Reconciliation: New magnesium oxide 400 mg (241.3 mg magnesium) Tablet 400 mg PO DAILY 30 Days Qty: 30 0RF Continued donepezil 5 mg tablet 5 mg PO HS rosuvastatin 20 mg tablet 20 mg PO HS carvedilol 25 mg tablet 25 mg PO BID Rx Instructions: TAKE 1 TABLET BY MOUTH TWICE A DAY pantoprazole 40 mg tablet,delayed release (DR/EC) 40 mg PO HS Rx Instructions: TAKE 1 TABLET BY MOUTH EVERY DAY NEEDED FOR GERD clopidogrel [Plavix] 75 mg tablet 75 mg PO DAILY aspirin 81 mg Tablet,Delayed Release (Dr/Ec) 81 mg PO DAILY Changed metformin 500 mg tablet 500 mg PO DAILY 30 Days Qty: 0 0RF Other Ambulatory Orders: Home Medical Equipment (Routine) Location: None Selected Ordered By: Darron Steele Problem Reconciliation Problems Reviewed?: Yes Patient Discharge Instructions ACTIVITY: Continue current activity DIET: continue same diet Patient Instructions: DI for Chest Pain Providers Primary Care Provider: Nadia Bellamy Admit Provider: Patrick Okeefe Attending Provider: Darron Steele
--- NOTE | 2023-09-05 12:07 | CARE MANAGER ---
Patient requested rolling walker and requested Femi provide. Information sent. Ashlie Guzman RN discussed with patient the need for home health services, but the patient refused them at this time. IVORY Saldaña
--- NOTE | 2023-09-05 12:25 | HMH.PHAINT1 ---
Pharmacy Intervention Comments: DISCHARGE MEDICATION COUNSELING WAS PROVIDED TO PATIENT AND FAMILY MEMBER ON MAGNESIUM AND THE CHANGE TO THEIR METFORMIN. INDICATION, DOSE, AND POSSIBLE SIDE EFFECTS WERE DISCUSSED, PATIENT VERBALIZED UNDERSTANDING WITH NO FURTHER QUESTIONS.
--- NOTE | 2023-09-07 15:17 | CARE MANAGER ---
Called and spoke with patient's S/O, who stated patient is doing well just sleeping a lot today. Aware of f/u appts.
== END 2023-09-05 13:01 | disposition home or self-care (01) ==
PROVIDERS: Admitting Provider Internal Medicine; PCP Family Medicine; Visit Provider Internal Medicine Adolescent Medicine
DX: R29.898 Other symptoms and signs involving the musculoskeletal system (principal); H53.129 Transient visual loss, unspecified eye; R42 Dizziness and giddiness; E11.9 Type 2 diabetes mellitus without complications; I77.9 Disorder of arteries and arterioles, unspecified; F32.9 Major depressive disorder, single episode, unspecified; I50.9 Heart failure, unspecified; M54.16 Radiculopathy, lumbar region; I25.10 Atherosclerotic heart disease of native coronary artery without angina pectoris; Z95.0 Presence of cardiac pacemaker; M54.50 Low back pain, unspecified; G89.29 Other chronic pain; Z95.1 Presence of aortocoronary bypass graft; Z95.5 Presence of coronary angioplasty implant and graft; Z79.01 Long term (current) use of anticoagulants; Z79.899 Other long term (current) drug therapy; Z79.84 Long term (current) use of oral hypoglycemic drugs; I65.23 Occlusion and stenosis of bilateral carotid arteries; Z87.891 Personal history of nicotine dependence
CPT/HCPCS: G0379; 36415; 80053; 81001; 82962; 83036; 83735; 84484; 85025; 87086; 93005; 93306; 97162; 97165; G0378; J3475

== ENCOUNTER 2024-04-04 14:29 | Outpatient (CLI) | payer MEDICARE, BC, SELFPAY ==
--- NOTE | 2024-04-04 14:34 | CA_ITS ---
FINAL REPORT TECHNIQUE: [place]ins scale, color and spectral doppler images of the bilateral carotid arteries were obtained. CLINICAL HISTORY: HTN, DM, ex smoker quit 20 years ago, CAD with cardiac stents, CABG x 3, hx of right endarterectomy 15 years ago, pacemaker, vertigo, dizziness. COMPARISON: None FINDINGS: Peak systolic velocity in the right internal carotid artery is 131 cm/sec. The internal carotid to common carotid artery ratio is 2.19. There is no significant carotid artery stenosis and mild plaque formation. The right vertebral artery is normal in direction. Peak systolic velocity in the left internal carotid artery is 173 cm/sec. The internal carotid to common carotid artery ratio is 2.25. There is no significant carotid artery stenosis and mild plaque formation. The left vertebral artery is normal in direction. IMPRESSION: Less than 50% carotid artery stenosis bilaterally. Normal peak systolic velocities and normal internal to common carotid artery ratios bilaterally. Reviewed, Interpreted and Dictated by Maren Villalba MD Transcribed by Dominique Stephens Authenticated and . [facility]
== END 2024-04-04 23:59 | disposition home or self-care (01) ==
LOC: RT 14:30
PROVIDERS: Visit Provider Physician Assistant
DX: R42 Dizziness and giddiness (principal)
CPT/HCPCS: 93880